=== PATIENT | female | born 1955 | race Caucasian/White ===

== ENCOUNTER → 2017-04-19 | Outpatient (CLI) | payer OTHER ==
[~2017-04-19] MED LIST: ALPR0.25 PO; ASPI81TA28 PO; B-COTAB53 PO; CALC600T9 PO; CLIN1GEL5 PO; EFF/375 PO; ESCI10TA17 PO; HYDR-5688 PO; HYDR25SU20 PR; MULT-405 PO; PANT40TA PO; RANITAB PO; VTMD400 PO; ZNTT/150 PO
== END | disposition home or self-care (01) ==
LOC: C.PATHSPEC 16:10
PROVIDERS: ATTEND Dermatology
DX: L72.0 Epidermal cyst (principal)

== ENCOUNTER → 2017-05-20 | Day surgery (SDC) | payer OTHER ==
[2017-05-13 12:13] LABS: BASO % 0.4 %; BASO ABS # 0.02 K/uL (0-0.2); COMPLETE YES; EOS % 1.9 %; HEMATOCRIT 45.4 % (37-47); IG% 0.2 %; LYMPH % 34.1 %; LYMPH ABS # 1.58 K/uL (1.2-3.4); MEAN CELL VOLUME 88.2 fL (80-100); MEAN CORPUSCULAR HEMOGLOBIN 28.5 pg (25-34); MEAN CORPUSCULAR HGB CONC 32.4 g/dl (32-36); MEAN PLATELET VOLUME 9.9 fL (7.4-10.4); MONO % 8.6 %; NEUT % 54.8 %; PLATELET COUNT 236 K/uL (130-400); RED BLOOD COUNT 5.15 M/uL (4.2-5.4); WHITE BLOOD COUNT 4.63 K/uL (4.8-10.8)
[2017-05-13 13:12] VITALS: Ht 162.6 cm; Wt 71.8 kg
[2017-05-13 13:57] LABS: BUN/CREATININE RATIO 17.9 (10-20); CALCIUM 9.1 mg/dl (8.5-10.1); CREATININE 0.88 mg/dl (0.60-1.20); POTASSIUM 4.3 mmol/L (3.5-5.1)
[~2017-05-20] VITALS: Ht 162.6 cm; Wt 71.8 kg
[~2017-05-20] MED LIST changes: +ATROPINE SULFATE 0.1 MG/ML 5ML SYR IV PRN; -B-COTAB53 PO; +BENZOIN SPRAY 118 ML BTL TOP ONE; +BUPIVACAINE 0.5 % 5 MG/1 ML MPF 30ML VIAL ONE; +BUPIVACAINE/EPINEPHRINE 0.25% 1:200,000 30 ML VIAL ONE; -CLIN1GEL5 PO; +CLINDAMYCIN PHOS 150 MG/ML 2 ML VIAL IV SCH; +DEXAMETHASONE SOD INJ 4 MG/ML VIAL IV PRN; +DEXAMETHASONE SOD INJ 4 MG/ML VIAL ONE; -ESCI10TA17 PO; +EpHEDrine SULFATE 50MG/5ML SYR ONE; +EpHEDrine SULFATE INJ 50 MG/ML AMP IV PRN; +FENTANYL CITRATE INJ 50 MCG/1 ML 2 ML VIAL IV PRN; +FENTANYL CITRATE INJ 50 MCG/1 ML 2 ML VIAL ONE; +HYDROCODONE/ACETAMOPHEN 5/325MG TAB PO PRN; +HYDROmorphone INJ 1 MG/ML SYR IV PRN; +KETOROLAC TROMETHAMINE 30 MG/ML VIAL IV. PRN; +LABETALOL HCL IV 5 MG/ML 20ML IV PRN; +LACTATED RINGER'S 1000ML 1,000 ML IV SCH; +LIDOCAINE HCL 2% 2 ML VIAL (20MG/ML) ONE; +METOCLOPRAMIDE HCL INJ 5 MG/ML 2 ML VIAL IV PRN; +MIDAZOLAM HCL 1 MG/ML 2ML VIAL ONE; -MULT-405 PO; +MoRPHine SULFATE 10 MG/ML CARP/VIAL IV PRN; +ONDANSETRON INJ 2 MG/ML 2 ML VIAL IV PRN; +ONDANSETRON INJ 2 MG/ML 2 ML VIAL ONE; +PHENYLEPHRINE 100MCG/ML 5ML SYR IV PRN; +PROMETHAZINE HCL INJ 6.25 MG in SODIUM CHLORIDE 0.9% 50ML 50 ML IV PRN; +PROPOFOL IV EMULSION 10 MG/ML 20 ML VIAL IV ONE; +SODIUM CHLORIDE 0.9% 1000ML 1,000 ML IV SCH; -ZNTT/150 PO
--- NOTE | 2017-05-20 10:25 | History & Physical Bridge - [place] ---
H&P Re-Evaluation Bridge Note: I have examined the patient, reviewed the History & Physical and in the interval since the performance of the History & Physical I have noted the following changes of clinical significance: No changes noted
--- NOTE | 2017-05-20 11:13 | [facility] Operative Report ---
Operative Report Operative Date May 20, 2017. Pre-Operative Diagnosis Prolapsed internal hemrrhoid Post-Operative Diagnosis Same as pre-op Procedure(s) Performed Excision Internal Hemrrhoid Surgeon Dr. Santana Machine Operations Supervisor Surgeon(s) Lara Matos PA-C Findings excoriated mucosa and very friable Specimens A. Hemorrhoid Anesthesia gen Complication(s) None Disposition Recovery Room / PACU I attest to the content of the Intraoperative Record and any orders documented therein. Any exceptions are noted below.
--- NOTE | 2017-05-20 11:18 | Discharge Instructions-SurgCtr ---
Discharge Instructions Date of Service May 20, 2017. Visit Reason for Visit: Prolapsed Internal Hemorrhoid Discharge Discharge Diagnosis / Problem: bleeding hemorrhoids Discharge Goals Goal(s): Decrease discomfort, Improve function, Improve disease control Activity Recommendations Activity Limitations: as noted below Lifting Limitations: no more than 10 pounds Exercise/Sports Limitations: until after follow-up appointment May Resume Sexual Activity: when tolerated Shower/Bathe: tomorrow (may soak in warm tub) Driving or Machine Use: resume 3 days after discharge SPECIAL CARE INSTRUCTIONS: * Cover incisions and change daily for comfort/drainage. will need a pad for drainage for 1-2 weeks * * Avoid constipation- may use Senokot S and Milk of magnesia twice daily as directed on the package * May use ibuprofen for pain as tolerated. * Expect some swelling and bruising. Call your doctor if: * Temperature above 101 degrees * Pain not relieved by pain medicine ordered * There is increased drainage or redness from any incision * You have any unanswered questions or concerns [phone]. FOLLOW UP VISIT: If not already scheduled, please call the office for a follow-up visit. for 1-2 weeks- check up OFFICE PHONE NUMBER: Dr. Santana Office Anesthesia . Post Anesthesia Instructions: If you have had General Anesthesia or IV Sedation: * Do not drive today. * Resume driving when surgeon permits. * Do not make important decisions or sign legal documents today. * Call surgeon for: 1. Temperature elevations greater than 101 degrees F. 2. Uncontrollable pain. 3. Excessive bleeding. 4. Persistent nausea and vomiting. 5. Medication intolerance (nausea, vomiting or rash). * For nausea and vomiting use only clear liquids such as: tea, soda, bouillon until nausea subsides, then gradually increase diet as tolerated. * If you have any concerns or questions, call your surgeon's office. If physician is unavailable and it is an emergency, call 911 or go to the nearest emergency room. . Diet Recommendations Home Diet: resume previous diet Procedures Procedures Performed: Excision Internal Hemrrhoid Pending Studies Studies pending at discharge: no Medical Emergencies . Who to Call and When: Medical Emergencies: If at any time you feel your situation is an emergency, please call 911 immediately. . Non-Emergent Contact Non-Emergency issues call your: Primary Care Provider, Surgeon . . "Provider Documentation" section prepared by Mika Santana. .
[2017-05-20 12:11] VITALS: TEMP 36.5
--- NOTE | 2017-05-20 12:32 | Anesthesia Progress Nt - [facility] ---
Anesthesia Post Op Note Date & Time May 20, 2017 at 12:32 Vital Signs Pain Intensity: 0 Vital Signs Past 12 Hours Date Time Temp Pulse Resp B/P (MAP) Pulse Ox O2 Delivery O2 Flow Rate FiO2 05/20/17 12:11 36.5 93 16 127/57 (80) 97 Room Air 05/20/17 12:04 83 16 05/20/17 12:04 84 16 94 05/20/17 12:03 144/80 05/20/17 12:02 36.7 85 16 144/80 98 Room Air 05/20/17 12:00 88 18 05/20/17 12:00 87 18 97 05/20/17 11:57 141/66 05/20/17 11:55 84 20 95 05/20/17 11:55 81 20 05/20/17 11:54 80 17 05/20/17 11:54 81 17 99 05/20/17 11:51 138/69 05/20/17 11:49 79 15 98 05/20/17 11:49 80 15 05/20/17 11:48 85 16 05/20/17 11:48 85 16 98 05/20/17 11:46 136/75 05/20/17 11:43 87 11 05/20/17 11:43 88 11 98 05/20/17 11:42 80 17 99 05/20/17 11:42 79 17 05/20/17 11:41 132/73 05/20/17 11:39 72 15 05/20/17 11:39 72 15 99 05/20/17 11:38 76 15 05/20/17 11:38 75 15 98 05/20/17 11:36 138/66 05/20/17 11:33 79 17 96 05/20/17 11:33 79 17 05/20/17 11:32 69 18 98 05/20/17 11:32 69 18 05/20/17 11:31 133/63 05/20/17 11:28 102/81 05/20/17 11:27 80 05/20/17 11:27 36.5 79 16 102/81 99 Mask 8 05/20/17 11:27 80 98 05/20/17 08:14 36.7 80 16 134/74 (94) 94 Room Air Notes Mental Status: alert / awake / arousable, participated in evaluation Pt Amnestic to Procedure: Yes Nausea / Vomiting: adequately controlled Pain: adequately controlled Airway Patency, RR, SpO2: stable & adequate BP & HR: stable & adequate Hydration State: stable & adequate Anesthetic Complications: no major complications apparent
[2017-05-20 12:37] VITALS: BP 128/73; PULSE 78; O2SAT 98
--- NOTE | 2017-05-20 13:03 | OPERATIVE REPORT ---
DATE OF OPERATION: 05/20/2017 NAME OF OPERATION: Excision of internal hemorrhoid. PREOPERATIVE DIAGNOSIS: Bleeding hemorrhoids. POSTOPERATIVE DIAGNOSIS: Same. STAFF SURGEON: Dr. Santana. RETAIL PRESENTATION SPECIALIST: Lara Matos PA-C FINDINGS: The patient had one large internal hemorrhoid with redundant external skin and also redundant mucosa with excoriation. ANESTHESIA: General. PROCEDURE: The patient was brought into the operating room and placed on the operating room table in the prone position after appropriate intubation. Her buttocks were taped apart. Her perianal area was prepped and draped in the usual fashion. On inspection, she had a very large area of redundant skin at the 5 o'clock position and internally had an area of redundant mucosa associated with a hemorrhoid which was very friable and excoriated; 2-0 chromic catgut suture was placed proximally in the mucosa. Then part of the skin and the hemorrhoidal tissue was excised using the LigaSure. It was then oversewn using 2-0 chromic catgut suture. After appropriate hemostasis, a dressing was applied and the patient was transferred to recovery room in stable condition. I attest to the content of the Intraoperative Record and any orders documented therein. Any exception s are noted below.
== END | disposition home or self-care (01) ==
LOC: X.SURG 07:40
PROVIDERS: ATTEND Surgery
DX: K64.8 Other hemorrhoids (principal); F41.9 Anxiety disorder, unspecified; M19.90 Unspecified osteoarthritis, unspecified site; Z85.828 Personal history of other malignant neoplasm of skin; Z90.89 Acquired absence of other organs; Z82.49 Family history of ischemic heart disease and other diseases of the circulatory system; K21.9 Gastro-esophageal reflux disease without esophagitis; E66.9 Obesity, unspecified; Z85.3 Personal history of malignant neoplasm of breast

== ENCOUNTER → 2017-05-31 | Outpatient (CLI) | payer OTHER ==
[~2017-05-31] MED LIST changes: -ATROPINE SULFATE 0.1 MG/ML 5ML SYR IV PRN; -BENZOIN SPRAY 118 ML BTL TOP ONE; -BUPIVACAINE 0.5 % 5 MG/1 ML MPF 30ML VIAL ONE; -BUPIVACAINE/EPINEPHRINE 0.25% 1:200,000 30 ML VIAL ONE; -CLINDAMYCIN PHOS 150 MG/ML 2 ML VIAL IV SCH; -DEXAMETHASONE SOD INJ 4 MG/ML VIAL IV PRN; -DEXAMETHASONE SOD INJ 4 MG/ML VIAL ONE; -EpHEDrine SULFATE 50MG/5ML SYR ONE; -EpHEDrine SULFATE INJ 50 MG/ML AMP IV PRN; -FENTANYL CITRATE INJ 50 MCG/1 ML 2 ML VIAL IV PRN; -FENTANYL CITRATE INJ 50 MCG/1 ML 2 ML VIAL ONE; -HYDROCODONE/ACETAMOPHEN 5/325MG TAB PO PRN; -HYDROmorphone INJ 1 MG/ML SYR IV PRN; -KETOROLAC TROMETHAMINE 30 MG/ML VIAL IV. PRN; -LABETALOL HCL IV 5 MG/ML 20ML IV PRN; -LACTATED RINGER'S 1000ML 1,000 ML IV SCH; -LIDOCAINE HCL 2% 2 ML VIAL (20MG/ML) ONE; -METOCLOPRAMIDE HCL INJ 5 MG/ML 2 ML VIAL IV PRN; -MIDAZOLAM HCL 1 MG/ML 2ML VIAL ONE; -MoRPHine SULFATE 10 MG/ML CARP/VIAL IV PRN; -ONDANSETRON INJ 2 MG/ML 2 ML VIAL IV PRN; -ONDANSETRON INJ 2 MG/ML 2 ML VIAL ONE; -PHENYLEPHRINE 100MCG/ML 5ML SYR IV PRN; -PROMETHAZINE HCL INJ 6.25 MG in SODIUM CHLORIDE 0.9% 50ML 50 ML IV PRN; -PROPOFOL IV EMULSION 10 MG/ML 20 ML VIAL IV ONE; -SODIUM CHLORIDE 0.9% 1000ML 1,000 ML IV SCH
--- NOTE | 2017-05-31 15:30 | MAMMOGRAPHY REPORT ---
BILATERAL DIGITAL DIAGNOSTIC MAMMOGRAM TOMOSYNTHESIS WITH CAD AND TARGETED BILATERAL ULTRASOUND: 05/31 CLINICAL HISTORY: 62-year-old woman with a personal history of right breast cancer status post lumpec delnaey and radiation therapy, diagnosed in 2003. She felt a pea-sized lump in the superior right breas t near the scar, but is unable to pinpoint that lump today. No skin erythema or nipple discharge. TECHNIQUE: Bilateral CC and MLO 2-D and tomosynthesis images were obtained. Current study was also evaluated with a Computer Aided Detection (CAD) system. COMPARISON: Comparison is made to exams dated: 12/25/2008, 07/05/2008, 05/31/2016 mammogram, 06/11/2015 mammogram, 06/10/2014 mammogram, and 05/25/2013 mammogram. BREAST COMPOSITION: There are scattered areas of fibroglandular density in both breasts. FINDINGS: A linear scar marker overlies the superior periareolar right breast. A triangular skin pa lpable marker overlies the 11:00 anterior right breast, denoting the previous location of the lump fe lt by the patient, which she is unable to pinpoint today. There is expected architectural distortion in the 12:00 anterior right breast, from prior lumpectomy. No new suspicious mass, unexpected architectural distortion, asymmetry or suspicious calcifications are seen in the right breast, with particular attention to the area of previously palpable lump. Th ere are a few stable punctate microcalcifications in the superior anterior right breast on the MLO vi ew, that are likely dermal in origin and may be related to prior surgical excision. These are unchan ged dating back to at least 2007. There is a circumscribed oval 8.8 x 6.3 x 5.6 mg either mass in the 6:00 anterior subareolar left bo ast. No other suspicious masses, calcifications or asymmetry are identified in the left breast. Targeted ultrasound was performed in the 6:00 anterior and retroareolar left breast, and also in the area of prior palpable lump in the right breast. In the 5:00 retroareolar left breast, there is an o galina circumscribed parallel hypoechoic solid-appearing mass measuring 7.0 x 4.1 x 6.9 mm. This correl ates well with the mammographic finding and is indeterminate. Definitive characterization with tissu e sampling is recommended. This was not definitely seen on prior mammograms. Targeted ultrasound performed in the area of palpable lump which the patient is unable to feel today, in the 11:00 right breast, 2 cm from the nipple, there is sonographically normal tissue. No suspici ous solid or cystic mass. Expected architectural distortion compatible with scar tissue is seen in t he 12:00 right breast, 1 cm from the nipple. IMPRESSION: ACR BI-RADS CATEGORY 4: SUSPICIOUS, TARGETED ULTRASOUND ACR BI-RADS CATEGORY 4: SUSPICIO US 1. There is no new suspicious mammographic or targeted sonographic abnormality in the area of palpab le lump in the 11:00 anterior right breast, which the patient was unable to feel today. Continued cl inical monitoring is recommended, and if it becomes evident again, could consider repeat targeted ult rasound. 2. Overall, stable mammographic appearance of the right breast, without mammographic evidence of mal ignancy. 3. There is an oval 8 mm circumscribed mass in the 6:00 anterior/subareolar left breast mammographic ally, correlating with an indeterminate solid circumscribed mass in the 5:00 retroareolar left breast on ultrasound. Ultrasound-guided core needle biopsy is recommended for definitive characterization. These results and recommendations were discussed with the patient at the time of the exam. She tenta tively scheduled the biopsy prior to leaving our department. Approximately 10% of breast cancers are not detected with mammography. A negative mammographic report should not delay biopsy if a clinically suggestive mass is present. Mary Link M.D. ay/:05/31/2017 13:28:16 Metal Punch Press Operator: Ailyn HURST)(Quinn), [facility] letter sent: Abnormal 4/5 BI-RADS Code: ACR BI-RADS Category 4: Suspicious Ultrasound BI-RADS: ACR BI-RADS Category 4: Suspici ous
== END | disposition home or self-care (01) ==
LOC: C.MAMM 10:08
PROVIDERS: ATTEND Family Medicine
DX: N63.10 Unspecified lump in the right breast, unspecified quadrant (principal); N63.20 Unspecified lump in the left breast, unspecified quadrant; Z85.3 Personal history of malignant neoplasm of breast

== ENCOUNTER → 2017-06-03 | Outpatient (CLI) | payer OTHER ==
--- NOTE | 2017-06-03 13:32 | Discharge Instructions ---
Discharge Instructions Procedure Procedure Date: Jun 03, 2017. Reason for visit: Left Mass. Discharge Discharge Date: Jun 03, 2017. Discharge Diagnosis: status post breast biopsy Instructions Activity Recommendations: Additional Limitations (see below) Return to School/Work: no limitations Recommended Home Diet: No Limitations Provider Instructions: ACTIVITY RECOMMENDATIONS: * No lifting, pushing, pulling or exercising the affected side for three days. RETURN TO SCHOOL/WORK: * You may return to work/school after the procedure, but do not perform any strenuous activities for 24 to 48 hours. MEDICATIONS: * Tylenol (two 325 mg) every four to six hours if needed for mild pain (if not allergic to Tylenol). DIET: * Resume previous diet. SPECIAL CARE INSTRUCTIONS: * Keep biopsy site dry for 24 hours. May shower after 24 hours, but do not soak (bathe) incision. * May remove Tegaderm (plastic patch) tomorrow AFTER showering. * Leave the steri-strips on for one week. Allow the steri-strips to fall off by themselves. If not off after one week, you may remove them. You may place a Bandaid crosswise over the strips, if desired. * Apply ice 10 minutes on and 10 minutes off as needed. * Wear a bra at bedtime to sleep more comfortably for 2-3 days. * Your referring physician should have the results after approximately 5 to 7 business days. * Call for unusual bleeding, fever, drainage, etc or if you have any questions call during normal business hours or after hours call Dr Underwood, [phone]. FOLLOW UP VISIT: Follow-up with Referring Physician as scheduled. Allergies Coded Allergies: Cephalexin (Verified Allergy, Intermediate, HIVES, 05/20/17) Sulfa Antibiotics (Verified Allergy, Intermediate, HIVES, 05/20/17) [place] Recommendations: Call your doctor if: * Temperature above 101 degrees * Pain not relieved by pain medicine ordered * There is increased drainage or redness from any incision * You have any unanswered questions or concerns. Your Doctors Instructions noted above were prepared by provider Anette Underwood. Patient Signature Section: Patient Instructions Signature Page Joanne Yung Patient (or Guardian) Signature/Date: I have read and understand the instructions given to me by my caregivers. Caregiver/RN/Doctor Signature/Date: The above-named patient and/or guardian has received patient instructions on this date. + Original Patient Signature Page (only) stays with chart. Please make copy for patient.
--- NOTE | 2017-06-03 15:47 | MAMMOGRAPHY REPORT ---
UNILATERAL LEFT DIGITAL DIAGNOSTIC MAMMOGRAM TOMOSYNTHESIS: 06/03/2017 CLINICAL HISTORY: Left 5:00 subareolar breast mass. TECHNIQUE: Breast tomosynthesis in addition to standard 2D mammography was performed. Postprocedura l left CC and ML tomosynthesis images including C views were obtained. COMPARISON: Comparison is made to exams dated: 05/31/2017 ultrasound, 05/31/2017 mammogram - [facility], 05/31/2016 mammogram, 06/11/2015 mammogram, 06/10/2014 mammogram, and 05/25/2013 m ammogram. BREAST COMPOSITION: There are scattered areas of fibroglandular density in the left breast. FINDINGS: A new biopsy marker clip is seen at the site of the biopsied left 5:00 subareolar breast m ass. No significant postbiopsy hematoma is seen. IMPRESSION: POST PROCEDURE IMAGING FOR MARKER PLACEMENT New biopsy marker clip status post ultrasound guided biopsy of a left 5:00 breast mass. Pathology re sults are pending. Approximately 10% of breast cancers are not detected with mammography. A negative mammographic report should not delay biopsy if a clinically suggestive mass is present. Anette Underwood M.D. ah/:06/03/2017 14:09:19 Marketing Operations Consultant: Gabriella MINAYA(R)(M), [facility] BI-RADS Code: Post Procedure Imaging For Marker Placement
--- NOTE | 2017-06-03 15:47 | MAMMOGRAPHY REPORT ---
ULTRASOUND GUIDED BIOPSY LEFT BREAST: 06/03/2017 CLINICAL HISTORY: Left 5:00 subareolar breast mass. PATIENT CONSENT: The procedure, risks and benefits were discussed with the patient and informed writt en consent was obtained. A timeout was performed immediately prior to the procedure. PROCEDURE DESCRIPTION: With ultrasound guidance, aseptic technique, and lidocaine as the local anesth etic (1% lidocaine to anesthetize the skin and 1% lidocaine with epinephrine to anesthetize the deepe r tissues), the mass of concern in the left 5:00 subareolar breast was sampled 4 times with a 14-gaug e Achieve biopsy needle. Immediately thereafter, with ultrasound guidance, aseptic technique, and li docaine as the local anesthetic, a metallic localizer clip was placed at the biopsy site. Direct pre ssure was applied to the site immediately post procedure and hemostasis was achieved. Postprocedure unilateral mammograms were performed to confirm placement of the clip in the expected location of the breast mass. The patient tolerated the procedure without complication. She was given wound care in structions. The specimens were sent to pathology for analysis. COMPARISON: Comparison is made to exams dated: 05/31/2017 ultrasound, 05/31/2017 mammogram - [facility], 05/31/2016 mammogram, 06/11/2015 mammogram, 06/10/2014 mammogram, and 05/22/2012 m ammogram. IMPRESSION: ULTRASOUND GUIDED BIOPSY Ultrasound guided core needle biopsy of the left 5:00 subareolar breast mass, with clip placement. T he patient will receive pathology results from her referring provider. Anette Underwood M.D. ah/:06/03/2017 13:34:24 Diamond Saw Operator: Gabriella MINAYA(R)(M), [facility]
== END | disposition home or self-care (01) ==
LOC: C.MAMM 12:46
PROVIDERS: ATTEND Family Medicine
DX: N63.0 Unspecified lump in unspecified breast (principal); N60.82 Other benign mammary dysplasias of left breast

== ENCOUNTER → 2017-06-24 | Day surgery (SDC) | payer OTHER ==
[2017-06-21 09:50] VITALS: Ht 162.6 cm; Wt 71.4 kg
[~2017-06-24] VITALS: Ht 162.6 cm; Wt 71.4 kg
[~2017-06-24] MED LIST changes: -ASPI81TA28 PO; +ATROPINE SULFATE 0.1 MG/ML 5ML SYR IV PRN; +CEFAZOLIN 2000MG IV PUSH 10 ML IV SCH; +CLINDAMYCIN IV 900 MG in DEXTROSE 5% ADD-VANTAGE 100ML 100 ML IV SCH; +CLINDAMYCIN PHOS 150 MG/ML 2 ML VIAL IV SCH; +DEXAMETHASONE SOD INJ 4 MG/ML VIAL ONE; +EpHEDrine SULFATE INJ 50 MG/ML AMP IV PRN; +FENTANYL CITRATE INJ 50 MCG/1 ML 2 ML VIAL IV PRN; +FENTANYL CITRATE INJ 50 MCG/1 ML 2 ML VIAL ONE; -HYDR25SU20 PR; +HYDROCODONE/ACETAMOPHEN 5/325MG TAB PO PRN; +HYDROmorphone INJ 1 MG/ML SYR IV PRN; +LACTATED RINGER'S 1000ML 1,000 ML IV SCH; +LIDOCAINE HCL 1% 20 ML VIAL ONE; +LIDOCAINE HCL 2% 2 ML VIAL (20MG/ML) ONE; +METHYLENE BLUE 0.5% 10 ML VIAL ONE; +MIDAZOLAM HCL 1 MG/ML 2ML VIAL ONE; +ONDANSETRON INJ 2 MG/ML 2 ML VIAL IV PRN; +ONDANSETRON INJ 2 MG/ML 2 ML VIAL ONE; +PROMETHAZINE HCL INJ 12.5 MG in SODIUM CHLORIDE 0.9% 50ML 50 ML IV PRN; +PROPOFOL IV EMULSION 10 MG/ML 20 ML VIAL IV ONE; +PRT/20 PO; -RANITAB PO; +SODIUM CHLORIDE 0.9% 1000ML 1,000 ML IV SCH; +[UNRECOGNIZED DRUG - REMARK] OPR
[2017-06-24] MEDS: BUPIVACAINE 0.5 % 5 MG/1 ML MPF 30ML VIAL ONE ×2 (10:15→10:34)
--- NOTE | 2017-06-24 10:44 | [facility] Operative Report ---
Operative Report Operative Date Jun 24, 2017. Pre-Operative Diagnosis Left breast atypical ductal herplasia Post-Operative Diagnosis Same as pre-op Procedure(s) Performed Left Breast Biopsy With Needle Localization Surgeon Dr. Santana Family Service Worker Surgeon(s) Grant Wallace PA-C Estimated Blood Loss 5ML Findings Lt breast tissue and addnl lateral and medial tissue Specimens A. Left breast biopsy Out at 1017 (sent fresh to [facility]) Needle =inferior, long suture=lateral, short suture=medial B.Left breast additional tissue, lateral. Sebastian=margin C.Left breast additional tissue, medial. Sebastian=margin Anesthesia gen/ LMA Complication(s) None Disposition Recovery Room / PACU I attest to the content of the Intraoperative Record and any orders documented therein. Any exceptions are noted below.
--- NOTE | 2017-06-24 10:49 | Discharge Instructions-SurgCtr ---
Discharge Instructions Date of Service Jun 24, 2017. Visit Reason for Visit: Left Breast Aytpical Ductal Hyperplasia Discharge Discharge Diagnosis / Problem: atypia Lt breast Discharge Goals Goal(s): Decrease discomfort, Improve function, Improve disease control Activity Recommendations Activity Limitations: as noted below Lifting Limitations: no more than 25 pounds Exercise/Sports Limitations: until after follow-up appointment May Resume Sexual Activity: when tolerated Shower/Bathe: keep incision dry (keep incision dry fro 2 days- may shower over incision on Sun 06/26) Driving or Machine Use: resume 1 day after discharge SPECIAL CARE INSTRUCTIONS: * Cover incisions and change daily for comfort/drainage. * Leave steri strips in place for 2 days * May use ibuprofen for pain as tolerated. * Expect some swelling and bruising. Call your doctor if: * Temperature above 101 degrees * Pain not relieved by pain medicine ordered * There is increased drainage or redness from any incision * You have any unanswered questions or concerns [phone]. FOLLOW UP VISIT: If not already scheduled, please call the office for a follow-up visit. for next week- to remove suture knots at end of incision OFFICE PHONE NUMBER: Dr. Santana Office Anesthesia . Post Anesthesia Instructions: If you have had General Anesthesia or IV Sedation: * Do not drive today. * Resume driving when surgeon permits. * Do not make important decisions or sign legal documents today. * Call surgeon for: 1. Temperature elevations greater than 101 degrees F. 2. Uncontrollable pain. 3. Excessive bleeding. 4. Persistent nausea and vomiting. 5. Medication intolerance (nausea, vomiting or rash). * For nausea and vomiting use only clear liquids such as: tea, soda, bouillon until nausea subsides, then gradually increase diet as tolerated. * If you have any concerns or questions, call your surgeon's office. If physician is unavailable and it is an emergency, call 911 or go to the nearest emergency room. . Diet Recommendations Home Diet: resume previous diet Procedures Procedures Performed: Left Breast Biopsy With Needle Localization Pending Studies Studies pending at discharge: no Medical Emergencies . Who to Call and When: Medical Emergencies: If at any time you feel your situation is an emergency, please call 911 immediately. . Non-Emergent Contact Non-Emergency issues call your: Primary Care Provider, Surgeon . . "Provider Documentation" section prepared by Mika Santana. .
--- NOTE | 2017-06-24 11:04 | OPERATIVE REPORT ---
DATE OF OPERATION: 06/24/2017 NAME OF OPERATION: Needle localization, left breast lumpectomy. PREOPERATIVE DIAGNOSIS: Atypia, left breast. POSTOPERATIVE DIAGNOSIS: Same. STAFF SURGEON: Mika Santana MD SMUDGER: Grant Shankar PA-C ANESTHESIA: General LMA. PROCEDURE: The patient was brought in the operating room and placed on the operating table in supine position. Her left chest and breasts were prepped and draped in usual fashion. She had a needle placed in the left breast at approximately 5 o'clock inferiorly traversing toward the 3 o'clock area. Skin and subcutaneous tissue were anesthetized using 0.5% plain Marcaine. An incision made over the needle carrying dissection down around the tip of the needle excising the tissue. The needle was inferior, long silk suture lateral, short silk suture medial. It appeared that the area of prior biopsy was at the lateral site. Additional tissue was taken, lateral and medial with the new margin being marked with methylene blue. Essentially this was tissue around the entire tip area of the needle. The tissue that was sent to mammography did show the clip within the tissue. It was difficult to see the mass. Deep tissue was then reapproximated using 2-0 plain catgut suture and then the subcutaneous tissue was reapproximated using 4-0 chromic suture and then the skin reapproximated using subcuticular 5-0 Monocryl with the knots left outside the skin at the end of the incision and Steri-Strips applied. Dressing applied and patient transferred to recovery room in stable condition. I attest to the content of the Intraoperative Record and any orders documented therein. Any exception s are noted below.
[2017-06-24 11:16] VITALS: TEMP 36.6
[2017-06-24 11:45] VITALS: BP 127/78; PULSE 62; O2SAT 98
--- NOTE | 2017-06-24 11:52 | Anesthesia Progress Nt - [facility] ---
Anesthesia Post Op Note Date & Time Jun 24, 2017 at 11:52 Vital Signs Pain Intensity: 0 Vital Signs Past 12 Hours Date Time Temp Pulse Resp B/P (MAP) Pulse Ox O2 Delivery O2 Flow Rate FiO2 06/24/17 11:45 62 16 127/78 (94) 98 Room Air 06/24/17 11:16 36.6 64 16 105/63 (77) 98 Room Air 06/24/17 11:11 36.6 06/24/17 11:09 65 12 96 06/24/17 11:09 64 12 06/24/17 11:06 126/63 (76) 06/24/17 11:04 71 16 97 06/24/17 11:04 71 16 06/24/17 11:01 130/62 (73) 06/24/17 10:59 64 18 06/24/17 10:59 63 18 99 06/24/17 10:56 129/62 (79) 06/24/17 10:54 69 19 06/24/17 10:54 75 19 99 06/24/17 10:51 119/63 (71) 06/24/17 10:49 77 13 06/24/17 10:49 79 13 99 06/24/17 10:46 122/63 (84) 06/24/17 10:43 36.4 87 16 122/63 96 Diffusion Mask 5 06/24/17 07:48 36.5 77 16 115/62 (79) 95 Room Air Notes Mental Status: alert / awake / arousable, participated in evaluation Pt Amnestic to Procedure: Yes Nausea / Vomiting: adequately controlled Pain: adequately controlled Airway Patency, RR, SpO2: stable & adequate BP & HR: stable & adequate Hydration State: stable & adequate Anesthetic Complications: no major complications apparent
--- NOTE | 2017-06-24 15:20 | MAMMOGRAPHY REPORT ---
NEEDLE LOCALIZATION LEFT BREAST: 06/24/2017 CLINICAL HISTORY: Recent ultrasound-guided biopsy of a left 5:00 subareolar breast mass, with atypia seen on pathology. PROCEDURE DESCRIPTION: With ultrasound guidance, aseptic technique, and 1% lidocaine as the local ane sthetic, the mass and associated biopsy marker clip in the left 5:00 subareolar breast was localized with a 3 cm Joseph II needle. The path of approach was caudocranial. The needle was left in place . Postprocedural CC and ML views were obtained to document wire placement. The mass and associated biopsy marker clip are located along the distal portion of the wire. The patient tolerated the proce dure without complication. COMPARISON: Comparison is made to exams dated: 06/03/2017 mammogram, 06/03/2017 ultrasound biopsy, 05/31/2017 ultrasound, 05/31/2017 mammogram - [facility], and 05/31/2016 mammogram. IMPRESSION: NEEDLE LOCALIZATION Ultrasound-guided needle localization of the mass and associated biopsy marker clip in the left 5:00 subareolar breast. Anette Underwood M.D. ah/:06/24/2017 08:17:21 [employer] Roofer: Ailyn MINAYA(Ninfa)(M), [facility]
--- NOTE | 2017-06-24 15:20 | MAMMOGRAPHY REPORT ---
SPECIMEN LEFT BREAST: 06/24/2017 CLINICAL HISTORY: Status post left breast surgical excision. COMPARISON: Comparison is made to exams dated: 06/24/2017 localization, 06/03/2017 mammogram, 06/03/20 17 ultrasound biopsy, 05/31/2017 ultrasound, 05/31/2017 mammogram - [facility], and 1 mammogram. Findings: A radiograph was performed of the left breast surgical specimen. The localized biopsy nubia er clip and intact needle localization wire and needle are present within the specimen. The results were discussed with Dr. Santana over the telephone. IMPRESSION: SPECIMEN The imaged specimen contains the preoperatively-localized biopsy marker clip. Anette Underwood M.D. ah/:06/24/2017 10:50:51 Brands Editor: Ailyn HURST)(Quinn), [facility]
--- NOTE | 2017-06-24 15:24 | MAMMOGRAPHY REPORT ---
UNILATERAL LEFT DIGITAL DIAGNOSTIC MAMMOGRAM: 06/24/2017 CLINICAL HISTORY: Status post ultrasound guided needle localization of the left breast mass. Please see separate report from ultrasound-guided needle localization performed on the same day for d etails of this exam. IMPRESSION: Please see separate report from ultrasound-guided needle localization performed on the same day for d etails of this exam. Approximately 10% of breast cancers are not detected with mammography. A negative mammographic report should not delay biopsy if a clinically suggestive mass is present. Anette Underwood M.D. ah/:06/24/2017 08:18:43 Screener Operator: Ailyn HURST)(M), [facility] BI-RADS Code: n/a
== END | disposition home or self-care (01) ==
LOC: X.SURG 07:27
PROVIDERS: ATTEND Surgery
DX: N60.82 Other benign mammary dysplasias of left breast (principal); Z79.82 Long term (current) use of aspirin; Z90.89 Acquired absence of other organs; Z98.890 Other specified postprocedural states; Z88.2 Allergy status to sulfonamides; Z85.3 Personal history of malignant neoplasm of breast; Z83.3 Family history of diabetes mellitus; Z82.49 Family history of ischemic heart disease and other diseases of the circulatory system; Z80.9 Family history of malignant neoplasm, unspecified

== ENCOUNTER → 2017-12-12 | Outpatient (CLI) | payer OTHER ==
[~2017-12-12] MED LIST changes: -ATROPINE SULFATE 0.1 MG/ML 5ML SYR IV PRN; -CEFAZOLIN 2000MG IV PUSH 10 ML IV SCH; -CLINDAMYCIN IV 900 MG in DEXTROSE 5% ADD-VANTAGE 100ML 100 ML IV SCH; -CLINDAMYCIN PHOS 150 MG/ML 2 ML VIAL IV SCH; -DEXAMETHASONE SOD INJ 4 MG/ML VIAL ONE; -EpHEDrine SULFATE INJ 50 MG/ML AMP IV PRN; -FENTANYL CITRATE INJ 50 MCG/1 ML 2 ML VIAL IV PRN; -FENTANYL CITRATE INJ 50 MCG/1 ML 2 ML VIAL ONE; -HYDROCODONE/ACETAMOPHEN 5/325MG TAB PO PRN; -HYDROmorphone INJ 1 MG/ML SYR IV PRN; -LACTATED RINGER'S 1000ML 1,000 ML IV SCH; -LIDOCAINE HCL 1% 20 ML VIAL ONE; -LIDOCAINE HCL 2% 2 ML VIAL (20MG/ML) ONE; -METHYLENE BLUE 0.5% 10 ML VIAL ONE; -MIDAZOLAM HCL 1 MG/ML 2ML VIAL ONE; -ONDANSETRON INJ 2 MG/ML 2 ML VIAL IV PRN; -ONDANSETRON INJ 2 MG/ML 2 ML VIAL ONE; -PANT40TA PO; -PROMETHAZINE HCL INJ 12.5 MG in SODIUM CHLORIDE 0.9% 50ML 50 ML IV PRN; -PROPOFOL IV EMULSION 10 MG/ML 20 ML VIAL IV ONE; -SODIUM CHLORIDE 0.9% 1000ML 1,000 ML IV SCH
--- NOTE | 2017-12-13 07:47 | MAMMOGRAPHY REPORT ---
UNILATERAL LEFT DIGITAL DIAGNOSTIC MAMMOGRAM TOMOSYNTHESIS WITH CAD AND TARGETED LEFT ULTRASOUND: 11/27 CLINICAL HISTORY: 62-year-old woman with a personal history of right breast cancer status post breast conservation treatment and recently diagnosed left breast atypical ductal hyperplasia, status post s urgical excisional biopsy. She presents for first follow-up in the left breast after surgery. TECHNIQUE: Left breast tomosynthesis in addition to standard 2D mammography was performed. Spot magn ification left CC and ML views were also performed over the surgical site. Current study was also ev aluated with a Computer Aided Detection (CAD) system. COMPARISON: Comparison is made to exams dated: 06/03/2017 mammogram, 05/31/2017 mammogram - [facility], 05/31/2016 mammogram, 06/11/2015 mammogram, 06/10/2014 mammogram, and 05/25/2013 ma mmogram. BREAST COMPOSITION: There are scattered areas of fibroglandular density in the left breast. FINDINGS: A linear scar marker overlies the upper outer anterior/periareolar left breast denoting the skin surgical scar from recent excisional biopsy. No suspicious mass, architectural distortion or c luster of microcalcifications is seen. There is stable asymmetry in the left upper outer quadrant. Targeted ultrasound was performed in the lateral left breast over the surgical scar from the 3:00 to 5:00 periareolar region. There is a linear hypoechoic scar tissue deep to the skin surgical scar. N o evidence of a suspicious solid or cystic mass. No suspicious abnormality is seen in the left upper outer quadrant in an area of stable focal asymmetry. IMPRESSION: ACR BI-RADS CATEGORY 2: BENIGN, TARGETED ULTRASOUND ACR BI-RADS CATEGORY 2: BENIGN There is no mammographic or targeted sonographic evidence of malignancy in the left breast. Return to annual mammogram screening schedule is recommended. The patient has been verbally notified of the r esults. Approximately 10% of breast cancers are not detected with mammography. A negative mammographic report should not delay biopsy if a clinically suggestive mass is present. Mary Link M.D. ay/:12/12/2017 10:12:15 Spiritual Advisor: Douglas MINAYA(Ninfa)(Quinn), [facility] letter sent: Normal 1/2 BI-RADS Code: ACR BI-RADS Category 2: Benign Ultrasound BI-RADS: ACR BI-RADS Category 2: Benign
== END | disposition home or self-care (01) ==
LOC: C.MAMM 09:20
PROVIDERS: ATTEND Surgery
DX: Z85.3 Personal history of malignant neoplasm of breast (principal); Z08 Encounter for follow-up examination after completed treatment for malignant neoplasm; Z98.890 Other specified postprocedural states

== ENCOUNTER 2019-07-16 16:45 | Inpatient (IN) ==
[2019-07-16] MEDS ORDERED: SODIUM CHLORIDE 0.9% 1000ML 1,000 ML IV ONE (17:02)
[2019-07-16 17:23] LABS: Basophils # (auto) 0.02 K/uL (0-0.2); Basophils % (auto) 0.3 %; Eosinophils # (auto) 0.15 K/uL (0-0.5); Eosinophils % (auto) 2.1 %; Hematocrit (blood only) 37.8 % (37-47); Hemoglobin 12.8 g/dL (12.0-16.0); Immature Granulocytes # (auto) 0.01 K/uL (0.00-0.02); Immature Granulocytes % (auto) 0.1 %; Lymphocytes # (auto) 2.17 K/uL (1.2-3.4); Lymphocytes % (auto) 29.8 %; Mean Corpuscular Hemoglobin 29.8 pg (25-34); Mean Corpuscular Hgb Conc 33.9 g/dL (32-36); Mean Corpuscular Volume 88.1 fL (80-100); Mean Platelet Volume 9.8 fL (7.4-10.4); Monocytes # (auto) 0.61 K/uL (0.11-0.59); Monocytes % (auto) 8.4 %; Neutrophils # (auto) 4.31 K/uL (1.4-6.5); Neutrophils % (auto) 59.3 %; Platelet Count 256 K/uL (130-400); RDW Coefficient of Variation 14.6 % (11.5-14.5); RDW Standard Deviation 47.4 fL (36.4-46.3); Red Blood Count 4.29 M/uL (4.2-5.4); White Blood Count 7.27 K/uL (4.8-10.8)
[2019-07-16] MEDS: ASPIRIN CHEW 324 MG PO STA ×2 (17:32→18:51)
[2019-07-16 17:41] LABS: Alanine Aminotransferase 25 U/L (12-78); Albumin Level 3.6 gm/dl (3.4-5.0); Aspartate Aminotransferase 23 U/L (15-37); BUN Creatinine Ratio 8.8 (10-20); Blood Urea Nitrogen 9 mg/dl (7-18); Calcium 9.4 mg/dl (8.5-10.1); Carbon Dioxide 28 mmol/L (21-32); Chloride 102 mmol/L (98-107); Creatinine Clr Calc Pharmacy 51.6 ml/min; Est GFR (African American) 64.1; Est GFR (Non-African American) 55.3; Glucose 116 mg/dl (70-99); Potassium 3.4 mmol/L (3.5-5.1); Sodium 138 mmol/L (136-145)
[2019-07-16 17:44] LABS: Alkaline Phosphatase 65 U/L (45-117); Bilirubin,Total 0.5 mg/dl (0.2-1); Globulin 3.8 gm/dl (2.5-4.0); Partial Thromboplastin Ratio 0.9; Partial Thromboplastin Time 24.7 Seconds (21.0-31.0); Prothrombin Time 10.6 Seconds (9.0-12.0); Total Protein 7.4 gm/dl (6.4-8.2); Troponin I < 0.015 ng/ml (0-0.045)
[2019-07-16 17:51] LABS: Appearance Urine Slightly Cloudy (Clear); Bilirubin Urine Negative (Negative); Blood Urine 1+ (Negative); Color Urine Yellow; Glucose Urine UA Negative (Negative); Ketones Urine Negative (Negative); Leukocyte Esterase Urine Trace (Negative); Nitrite Urine Negative (Negative); Protein Urine Negative (Negative); Specific Gravity Urine <= 1.005 (1.000-1.030); Urobilinogen Urine Negative (Negative)
[2019-07-16 18:08] LABS: Bacteria Urine 1+ (Negative); RBC Urine 0-4 /hpf (0-4)
[2019-07-16] MEDS ORDERED: OPTIRAY 320 125ml IV PRN (19:18)
--- NOTE | 2019-07-16 19:31 | Emergency Department Note ---
Entered by Karlie Diaz acting as a scribe for William Cabrales DO History of Present Illness General Chief complaint: Shortness of Breath/Dyspnea Stated complaint: SOB Source: patient History of Present Illness Onset (ago): hour(s) (today ) Location: chest Pain Consistency: + constant Maximum Pain Intensity: 3 Associated symptoms: + denies other symptoms (trouble swallowing, diarrhea, dysuria, hematuria) and + shortness of breath; no nausea/vomiting The patient is a 64 year old female with PMHx pertinent for breast cancer who presents to the Emergency Room with complaints of shortness of breath. She states that she had a recent bilateral mastectomy 4 days ago. Today she was sitting down when she began to experience chest and throat tightness associated with a "near-syncope" feeling. She explains that she has a history of anxiety but was not anxious about anything today. Her tightness has not resolved since onset prompting her ED visit today. The patient states that she is concerned for a post-op PE. She also states she is currently taking Benadryl for contact dermitis from surgical tape. Of note, the patient was seen in the ED 3 days ago for the same. She denies trouble swallowing, nausea, vomiting, diarrhea, dysuria, and hematuria. The patient offers no additional complaints at this time. Patient denies diabetes, hypertension, hyperlipidemia, CAD, history of sudden at a young age, and smoking. Home Medications Home Medications Medication Instructions Recorded Confirmed Type albuterol sulfate 2 puff INHALATION Q6H PRN 12/05/18 07/16/19 History ranitidine HCl [Zantac] 150 mg PO DAILY PRN 12/05/18 07/16/19 History pantoprazole 40 mg tablet,delayed 40 mg PO QAM #90 tab 03/23/19 07/16/19 Rx release citalopram 20 mg tablet 20 mg PO DAILY #90 tab 05/30/19 07/16/19 Rx clindamycin phosphate 1 % topical 1 appln TOPICAL DAILY #1 ml 06/15/19 07/16/19 History solution acetaminophen [Tylenol Extra 500 mg PO Q6H PRN 07/16/19 07/16/19 History Strength] alprazolam 0.25 mg PO BID PRN 07/16/19 07/16/19 History clindamycin HCl 150 mg PO TID 07/16/19 07/16/19 History diphenhydramine HCl 50 mg PO Q8H PRN 07/16/19 07/16/19 History hydrocodone-acetaminophen 1 tab PO Q6H PRN 07/16/19 07/16/19 History Allergies Allergy/AdvReac Type Severity Reaction Status Date / Time cephalexin Allergy Intermediate HIVES Verified 07/16/19 18:57 Sulfa (Sulfonamide Allergy Intermediate HIVES Verified 07/16/19 18:58 Antibiotics) adhesive tape Allergy REDNESS OF Unverified 07/16/19 18:57 SKIN,RASH Past Med/Surg History Medical History Anxiety SITUATIONAL GERD (gastroesophageal reflux disease) Hiatal hernia MVP (mitral valve prolapse) HX-NO PREMED WITH DENTAL Pneumonia 05/2018 PVC (premature ventricular contraction) ON OCC Surgical History History of colonoscopy History of dilation and curettage History of esophagogastroduodenoscopy (EGD) History of hemorrhoidectomy History of tonsillectomy Hx of lumpectomy RIGHT PLUS RADIATION-12 YRS AGO Hx of lumpectomy LEFT NO RADIATION 2016 Family History Sister Family history of diabetes mellitus Mother Family history of diabetes mellitus Hypertension Aunt Family history of diabetes mellitus Myocardial infarction acute Father Myocardial infarction acute Grandfather Cancer Brother Clotting disorder Social History Preferred Language: Gambian Communication Ability: Effective Contour Sander Required: No Beliefs That Will Affect Care: None marital status: Current Living Situation: Spouse current occupational status: retired 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 and A total of 10 systems reviewed and were otherwise negative Physical Exam Vital Signs Vital Signs - 24 hr 07/16/19 16:49 07/16/19 17:03 07/16/19 20:45 Temperature 36.9 C Temperature Source Oral Pulse Rate 107 H Pulse Rate [Left Radial] 87 Pulse Rhythm Regular Pulse Rhythm [Left Radial] Regular Pulse Strength [Left Radial] Normal Respiratory Rate 22 16 Respiratory Effort / Characteristics Non-Labored Spontaneous Non-Labored Non-Labored Respiratory Depth Normal Normal Normal Respiratory Pattern Regular Regular Blood Pressure 139/74 Blood Pressure [Left Arm] 134/65 Blood Pressure Mean 95 Blood Pressure Mean [Left Arm] 88 Blood Pressure Position Sitting Blood Pressure Position [Left Arm] Lying Pulse Oximetry 99 98 96 Oxygen Delivery Method Room Air Room Air Sepsis Recent Fever Within 48 Hours No Sepsis Action Taken by Nursing No Action Required GENERAL: sitting up in bed, anxious appearing, talking in full sentences, non- toxic EYE EXAM: normal conjunctiva OROPHARYNX: no exudate, no erythema, lips, buccal mucosa, and tongue normal and mucous membranes are moist NECK: supple, no nuchal rigidity, no adenopathy, non-tender CHEST: incisions under bilateral breasts with bruising which are firm, no madelin rounding discharge, bilateral CANDACE drains in place-serosanguineous LUNGS: Clear to auscultation. Normal chest wall mechanics HEART: tachycardic, S1 normal and S2 normal ABDOMEN: abdomen soft, non-tender, normo-active bowel sounds, no masses, no rebound or guarding. BACK: Back is symmetrical on inspection and there is no deformity, no midline tenderness, no CVA tenderness. SKIN: no rashes and no bruising UPPER EXTREMITIES: upper extremities are grossly normal. LOWER EXTREMITIES: No pitting edema. Calves are equal bilaterally. NEURO EXAM: Normal sensorium, cranial nerves II-XII grossly intact, normal speech, no gross weakness of arms, no gross weakness of legs. Course Course ED COURSE: Vital signs were reviewed and showed hypertension. The patients medical record was reviewed The above diagnostic studies were performed and reviewed. ED treatments and interventions as stated above. 1656: The patient was evaluated in room C07. A complete history and physical examination was performed. 1735: The patient refused chest x-ray and states that she does not want a CT. 2006: Upon reevaluation, the patient is resting.I discussed my findings with the patient and she understands and agrees with the treatment plan. Based on the patients age, coexisting illnesses, exam and lab findings the decision to treat as an inpatient was made. The patient remained stable while under my care. The patient will be evaluated for further management under the care of Dr. Pastor, [facility]. Administered Medications Heparin Sodium/Dextrose (Heparin Sodium/Dextrose) 25,000 units in 500 mls @ 0.02 mls/hr IV .Q24H TARIK; Protocol Stop: 08/15/19 20:14 Last Admin: 07/16/19 20:35 Dose: 1,100 units/hr, 22 mls/hr Documented by: [id number] Cosigned by: [id number] Ioversol (Optiray 320 125ml) 118 ml IV ONCE PRN PRN Reason: Interaction Checking Stop: 07/20/19 19:17 Last Admin: 07/16/19 19:20 Dose: 118 ml Documented by: [id number] Discontinued Medications Aspirin (Aspirin) 324 mg PO NOW STA Stop: 07/16/19 17:04 Last Admin: 07/16/19 18:51 Dose: Not Given Documented by: [id number] Clindamycin HCl (Cleocin) 150 mg PO NOW ONE Stop: 07/16/19 21:20 Last Admin: 07/16/19 21:46 Dose: 150 mg Documented by: [id number] Heparin Sodium (Porcine) (Heparin Iv Bolus) Confirm Administered Dose 10,000 units .ROUTE .STK-MED ONE Stop: 07/16/19 20:24 Last Admin: 07/16/19 20:35 Dose: 10,000 units Documented by: [id number] Cosigned by: [id number] Heparin Sodium/Dextrose () 1 ea IV NOW STA; Protocol Stop: 07/16/19 20:07 Last Admin: 07/16/19 20:40 Dose: Not Given Documented by: [id number] Sodium Chloride (Nss 1000ml) 1,000 mls @ 999 mls/hr IV .Q1H1M ONE Stop: 07/16/19 18:02 Last Infusion: 07/16/19 18:50 Dose: 0 mls/hr Documented by: [id number] Admin: 07/16/19 17:33 Dose: 999 mls/hr Documented by: [id number] Impression & Plan Pulmonary embolism, Chest pain, Shortness of breath Critical Care Time Critical Care Time: Yes Total Critical Care Time: 33 I have personally spent approximately 33 minutes of critical care time in the direct management of this patient. This includes bedside care, interpretation of diagnostic studies, and testing, discussion with consultants, patient, and family members, and other required patient management activities. This 33 minutes is in excess of all separately billable procedures. Discharge Plan Visit Data *Final* Discharge Date/Time: 07/16/19 22:36 Chief Complaint: Shortness of Breath/Dyspnea Stated Complaint: SOB ED Provider: William Cabrales Discharge Problem: Pulmonary embolism, Chest pain, Shortness of breath Patient Disposition: Admitted As Inpatient Discharge Instructions Interventions: ED Discharge Assessment Last Done: 07/16/19 22:36 Medical Decision Making Differential Diagnosis Differential diagnosis includes but is not limited to etiologies such as cardiac ischemia, aortic dissection, pulmonary embolism, pneumonia, pneumothorax, musculoskeletal, infections, pericarditis, myocarditis, esophageal rupture, gastrointestinal, infections, reactive airway disease, pneumonia, pneumothorax, COPD, CHF, cardiac ischemia, pulmonary embolism, musculoskeletal, ga strointestinal, as well as others were entertained. Medical Records Attestation: I reviewed the patient's medical records. Home Medications Current Medication List: was personally reviewed by me Laboratory Data Attestation: I reviewed the patient's lab results. Result diagrams: 07/16/19 17:10 07/16/19 17:10 Lab Results 07/16/19 07/16/19 07/16/19 Range/Units 17:10 17:10 17:10 WBC 7.27 (4.8-10.8) K/uL RBC 4.29 (4.2-5.4) M/uL Hgb 12.8 (12.0-16.0) g/dL Hct 37.8 (37-47) % MCV 88.1 (80-100) fL MCH 29.8 (25-34) pg MCHC 33.9 (32-36) g/dL RDW Std Deviation 47.4 H (36.4-46.3) fL RDW Coeff of Richard 14.6 H (11.5-14.5) % Plt Count 256 (130-400) K/uL MPV 9.8 (7.4-10.4) fL Immature Gran % (Auto) 0.1 % Neut % (Auto) 59.3 % Lymph % (Auto) 29.8 % Clayton % (Auto) 8.4 % Eos % (Auto) 2.1 % Baso % (Auto) 0.3 % Immature Gran # (Auto) 0.01 (0.00-0.02) K/uL Neut # (Auto) 4.31 (1.4-6.5) K/uL Lymph # (Auto) 2.17 (1.2-3.4) K/uL Clayton # (Auto) 0.61 H (0.11-0.59) K/uL Eos # (Auto) 0.15 (0-0.5) K/uL Baso # (Auto) 0.02 (0-0.2) K/uL PT 10.6 (9.0-12.0) Seconds INR 1.0 (0.9-1.1) APTT 24.7 (21.0-31.0) Seconds PTT Ratio 0.9 Sodium 138 (136-145) mmol/L Potassium 3.4 L (3.5-5.1) mmol/L Chloride 102 (98-107) mmol/L Carbon Dioxide 28 (21-32) mmol/L Anion Gap 8.0 (3-11) BUN 9 (7-18) mg/dl Creatinine 1.05 (0.6-1.2) mg/dl Est Cr Clr Drug Dosing 51.6 ml/min Est GFR ( Amer) 64.1 Est GFR (Non-Af Amer) 55.3 BUN/Creatinine Ratio 8.8 L (10-20) Glucose 116 H (70-99) mg/dl Calcium 9.4 (8.5-10.1) mg/dl Total Bilirubin 0.5 (0.2-1) mg/dl AST 23 (15-37) U/L ALT 25 (12-78) U/L Alkaline Phosphatase 65 (45-117) U/L Troponin I < 0.015 (0-0.045) ng/ml Total Protein 7.4 (6.4-8.2) gm/dl Albumin 3.6 (3.4-5.0) gm/dl Globulin 3.8 (2.5-4.0) gm/dl Albumin/Globulin Ratio 1.0 (0.9-2) Urine Color Urine Appearance (Clear) Urine pH (4.5-7.5) Ur Specific Hawkins (1.000-1.030) Urine Protein (Negative) Urine Glucose (UA) (Negative) Urine Ketones (Negative) Urine Blood (Negative) Urine Nitrite (Negative) Urine Bilirubin (Negative) Urine Urobilinogen (Negative) Ur Leukocyte Esterase (Negative) Urine RBC (0-4) /hpf Urine WBC (0-5) /hpf Ur Epithelial Cells (0-5) /lpf Urine Bacteria (Negative) 07/16/19 07/16/19 Range/Units 17:30 19:31 WBC (4.8-10.8) K/uL RBC (4.2-5.4) M/uL Hgb (12.0-16.0) g/dL Hct (37-47) % MCV (80-100) fL MCH (25-34) pg MCHC (32-36) g/dL RDW Std Deviation (36.4-46.3) fL RDW Coeff of Richard (11.5-14.5) % Plt Count (130-400) K/uL MPV (7.4-10.4) fL Immature Gran % (Auto) % Neut % (Auto) % Lymph % (Auto) % Clayton % (Auto) % Eos % (Auto) % Baso % (Auto) % Immature Gran # (Auto) (0.00-0.02) K/uL Neut # (Auto) (1.4-6.5) K/uL Lymph # (Auto) (1.2-3.4) K/uL Clayton # (Auto) (0.11-0.59) K/uL Eos # (Auto) (0-0.5) K/uL Baso # (Auto) (0-0.2) K/uL PT (9.0-12.0) Seconds INR (0.9-1.1) APTT (21.0-31.0) Seconds PTT Ratio Sodium (136-145) mmol/L Potassium (3.5-5.1) mmol/L Chloride (98-107) mmol/L Carbon Dioxide (21-32) mmol/L Anion Gap (3-11) BUN (7-18) mg/dl Creatinine (0.6-1.2) mg/dl Est Cr Clr Drug Dosing ml/min Est GFR ( Amer) Est GFR (Non-Af Amer) BUN/Creatinine Ratio (10-20) Glucose (70-99) mg/dl Calcium (8.5-10.1) mg/dl Total Bilirubin (0.2-1) mg/dl AST (15-37) U/L ALT (12-78) U/L Alkaline Phosphatase (45-117) U/L Troponin I < 0.015 (0-0.045) ng/ml Total Protein (6.4-8.2) gm/dl Albumin (3.4-5.0) gm/dl Globulin (2.5-4.0) gm/dl Albumin/Globulin Ratio (0.9-2) Urine Color Yellow Urine Appearance Slightly Cloudy (Clear) Urine pH 6.0 (4.5-7.5) Ur Specific Hawkins <= 1.005 (1.000-1.030) Urine Protein Negative (Negative) Urine Glucose (UA) Negative (Negative) Urine Ketones Negative (Negative) Urine Blood 1+ H (Negative) Urine Nitrite Negative (Negative) Urine Bilirubin Negative (Negative) Urine Urobilinogen Negative (Negative) Ur Leukocyte Esterase Trace H (Negative) Urine RBC 0-4 (0-4) /hpf Urine WBC 5-10 H (0-5) /hpf Ur Epithelial Cells 5-10 H (0-5) /lpf Urine Bacteria 1+ H (Negative) Imaging Data Radiologist's Impression: Radiology results as stated below per my review and the radiologist's interpretation: CT angio chest PE protocol CLINICAL HISTORY: 64 years-old Female presenting with shortness of breath and tachycardia, recent bilateral breast surgery. TECHNIQUE: Multidetector CT angiography of the chest was performed after administration of intravenous contrast. 3-D volumetric and/or maximum intensity projection (MIP) images were subsequently reconstructed for review. IV contrast: 118 mL of Optiray 320. One or more dose lowering techniques were used consistent with the principles of ALARA (as low as reasonably achievable), including automatic exposure control, mA or kV adjustment to individual patient size, a nd/or use of iterative reconstruction. COMPARISON: Chest x-ray from 07/06/2018. CT DOSE (mGy.cm): The estimated cumulative dose is 458.83 mGy.cm. 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 Pulmonary vasculature: The study is adequate for assessment of the pulmonary vascular tree. Acute pulmonary emboli in segmental and subsegmental pulmonary arteries of the right upper lobe. Main pulmonary artery is not enlarged. No flattening of the interventricular septum. No intracardiac filling defect. No reflux of contrast into the hepatic veins. Remaining chest: Soft tissues: Normal thyroid. Bilateral breast implants with surgical drains in place. Expected soft tissue emphysema and reactive surrounding fluid. Surgical clips noted in the right axilla possibly from prior lymphadenectomy. No axillary, supraclavicular, mediastinal, or hilar lymphadenopathy. Normal aorta. Normal heart size. No pericardial or pleural effusion. Upper abdomen normal. Lungs and airways: No pneumothorax. Central airways patent. Pulmonary arteries mildly enlarged relative to adjacent bronchi. Minimal interlobular septal thickening at the lung bases. Mild mosaic attenuation. Minimal dependent changes likely atelectasis. Solid 3 mm right apical nodule (series 4 image 207). No a dditional nodule is appreciated. Musculoskeletal: Normal osseous structures. No destructive osseous lesions. IMPRESSION: 1. Limited acute pulmonary emboli in segmental and subsegmental pulmonary ar teries of the right upper lobe. No CT evidence of right heart strain. 2. Postsurgical changes of bilateral breast implants. 3. Solid 3 mm right upper lobe nodule. Follow-up per Fleischner Society 2017 recommendations below. Notably, if the patient has a history of malignancy, these criteria do not apply. The report will be called/faxed according to standard departmental protocol for a critical finding. Summary of Fleischner Society 2017 Recommendations (H Loni et al. Guidelines for management of incidental pulmonary nodules detected on CT images: From the Fleischner Society 2017. Radiology 2017; 284: 228-243.) SOLID NODULES Single nodule; size < 6 mm * Low risk patients: No routine follow-up * High risk patients: Optional CT at 12 months Single nodule; size 6-8 mm * Low risk patients: CT at 6-12 months, then consider CT at 18-24 months * High risk patients: CT at 6-12 months, then at 18-24 months Single nodule; size > 8 mm * Either low or high risk patients: Considered CT at 3 months, PET/CT, or tissue sampling Multiple nodules; size < 6 mm * Low risk patients: No routine follow up * High risk patients: Optional CT at 12 months Multiple nodules; size 6-8 mm * Low risk patients: CT at 3-6 months, then consider CT at 18-24 months * High risk patients: CT at 3-6 months, then at 18-24 months Multiple nodules; size > 8 mm * Low risk patients: CT at 3-6 months, then consider at 18-24 months * High risk patients: CT at 3-6 months, then at 18-24 months SUBSOLID NODULES Single ground-glass nodule * Nodule size < 6 mm: No routine follow-up * Nodule size > or = 6 mm: CT at 6-12 months to confirm persistence, then CT every 2 years until 5 years Single part-solid nodule * Nodule size < 6 mm: No routine follow-up * Nodules size > or = 6 mm: CT at 3-6 months to confirm persistence. If unchanged and solid component remains < 6 mm, annual CT should be performed for 5 years Multiple nodules * Nodule size < 6 mm: CT at 3-6 months. If stable, consider CT at 2 and 4 years. * Nodules size > or = 6 mm: CT at 3-6 months. Subsequent management based on the most suspicious nodule(s) NOTE: 1) These guidelines apply to incidental nodules. These guidelines do NOT apply to patients younger than 35 years, immunocompromised patients, or patients with cancer. 2) Risk categories: * Low risk patients: Minimal or absent history of smoking and/or other known risk factors * High risk patients: History of smoking, exposure to other carcinogens, emphy sema, fibrosis, upper lobe location, family history of lung cancer, etc. 3) If a nodule up to 8 mm is partly solid or is ground glass, further follow-up is required after 24 months to exclude possible slow growing adenocarcinoma. Electronically signed by: Norberto Murillo M.D. 07/16/2019 7:33 PM ECG Data Attestation: I personally reviewed and interpreted this ECG as follows: Indication: + SOB/dyspnea Rate (beats per minute): 99 Rhythm: + sinus rhythm ECG Intervals/blocks: + Normal QT ECG Rewey: + Normal ECG Findings: no PVCs Blood Pressure Blood Pressure Findings: Elevated blood pressure Blood Pressure Disposition: Referred to patients primary care provider JOCELYN Narrative Patient is a 64-year-old female status postop from bilateral vasectomy this past at the [facility] for chest pain shortness of breath. Upon presentation she is found to be tachycardic. With her recent surgery she falls into the high risk group and consequently d-dimer was not obtained but rather a CT PE was performed. Had to have multiple conversations in regards to this with the patient and she was eventually agreeable as she initially did not want this done. IV was established blood work was obtained and showed no significant leukocytosis or anemia. INR was unremarkable. BMP with mild hypokalemia. LFTs troponin was negative. UA with a small amount of hematuria. CT PE was performed and showed PEs in the segmental and subsegmental lobes. Patient denied any history of any brain bleeds or recent trauma. No vomiting blood, urinating blood, or dark tarry stools. Does have recent surgery. Risk and benefits were explained. Patient was placed on a heparin drip and given a heparin bolus due to the PEs and was admitted to the hospital for further work- up. Discharge Problem: Pulmonary embolism Qualifiers: Pulmonary embolism type: unspecified Chronicity: unspecified Acute cor pulmonale presence: unspecified Qualified Code(s): I26.99 - Other pulmonary embolism without acute cor pulmonale Chest pain Qualifiers: Chest pain type: unspecified Qualified Code(s): R07.9 - Chest pain, unspecified The scribe's documentation has been prepared under my direction and personally reviewed by me in its entirety. I confirm that the note above accurately reflects all work, treatment, procedures, and medical decision making performed by me.
--- NOTE | 2019-07-16 19:35 | CT Scan Report ---
CT angio chest PE protocol CLINICAL HISTORY: 64 years-old Female presenting with shortness of breath and tachycardia, recent yesika ateral breast surgery. TECHNIQUE: Multidetector CT angiography of the chest was performed after administration of intravenou s contrast. 3-D volumetric and/or maximum intensity projection (MIP) images were subsequently reconst ructed for review. IV contrast: 118 mL of Optiray 320. One or more dose lowering techniques were used consistent with the principles of ALARA (as low as reasonably achievable), including automatic expos ure control, mA or kV adjustment to individual patient size, and/or use of iterative reconstruction. COMPARISON: Chest x-ray from 07/06/2018. CT DOSE (mGy.cm): The estimated cumulative dose is 458.83 mGy.cm. FINDINGS: Freight Separator topogram: Surgical drains project over the bilateral breasts. Pulmonary vasculature: The study is adequate for assessment of the pulmonary vascular tree. Acute pulmonary emboli in segmen rudy and subsegmental pulmonary arteries of the right upper lobe. Main pulmonary artery is not enlarge d. No flattening of the interventricular septum. No intracardiac filling defect. No reflux of contras t into the hepatic veins. Remaining chest: Soft tissues: Normal thyroid. Bilateral breast implants with surgical drains in place. Expected soft tissue emphysema and reactive surrounding fluid. Surgical clips noted in the right axilla possibly fr om prior lymphadenectomy. No axillary, supraclavicular, mediastinal, or hilar lymphadenopathy. Normal aorta. Normal heart size. No pericardial or pleural effusion. Upper abdomen normal. Lungs and airways: No pneumothorax. Central airways patent. Pulmonary arteries mildly enlarged relati ve to adjacent bronchi. Minimal interlobular septal thickening at the lung bases. Mild mosaic attenua tion. Minimal dependent changes likely atelectasis. Solid 3 mm right apical nodule (series 4 image 20 7). No additional nodule is appreciated. Musculoskeletal: Normal osseous structures. No destructive osseous lesions. IMPRESSION: 1. Limited acute pulmonary emboli in segmental and subsegmental pulmonary arteries of the right uppe r lobe. No CT evidence of right heart strain. 2. Postsurgical changes of bilateral breast implants. 3. Solid 3 mm right upper lobe nodule. Follow-up per Fleischner Society 2017 recommendations below. Notably, if the patient has a history of malignancy, these criteria do not apply. The report will be called/faxed according to standard departmental protocol for a critical finding. Summary of Fleischner Society 2017 Recommendations (H Loni, et al. Guidelines for management of i ncidental pulmonary nodules detected on CT images: From the Fleischner Society 2017. Radiology 2017; 284: 228-243.) SOLID NODULES Single nodule; size < 6 mm * Low risk patients: No routine follow-up * High risk patients: Optional CT at 12 months Single nodule; size 6-8 mm * Low risk patients: CT at 6-12 months, then consider CT at 18-24 months * High risk patients: CT at 6-12 months, then at 18-24 months Single nodule; size > 8 mm * Either low or high risk patients: Considered CT at 3 months, PET/CT, or tissue sampling Multiple nodules; size < 6 mm * Low risk patients: No routine follow up * High risk patients: Optional CT at 12 months Multiple nodules; size 6-8 mm * Low risk patients: CT at 3-6 months, then consider CT at 18-24 months * High risk patients: CT at 3-6 months, then at 18-24 months Multiple nodules; size > 8 mm * Low risk patients: CT at 3-6 months, then consider at 18-24 months * High risk patients: CT at 3-6 months, then at 18-24 months SUBSOLID NODULES Single ground-glass nodule * Nodule size < 6 mm: No routine follow-up * Nodule size > or = 6 mm: CT at 6-12 months to confirm persistence, then CT every 2 years until 5 y ears Single part-solid nodule * Nodule size < 6 mm: No routine follow-up * Nodules size > or = 6 mm: CT at 3-6 months to confirm persistence. If unchanged and solid componen t remains < 6 mm, annual CT should be performed for 5 years Multiple nodules * Nodule size < 6 mm: CT at 3-6 months. If stable, consider CT at 2 and 4 years. * Nodules size > or = 6 mm: CT at 3-6 months. Subsequent management based on the most suspicious nod ule(s) NOTE: 1) These guidelines apply to incidental nodules. These guidelines do NOT apply to patients younger th an 35 years, immunocompromised patients, or patients with cancer. 2) Risk categories: * Low risk patients: Minimal or absent history of smoking and/or other known risk factors * High risk patients: History of smoking, exposure to other carcinogens, emphysema, fibrosis, upper lobe location, family history of lung cancer, etc. 3) If a nodule up to 8 mm is partly solid or is ground glass, further follow-up is required after 24 months to exclude possible slow growing adenocarcinoma. Electronically signed by: Norberto Murillo M.D. 07/16/2019 7:33 PM
[2019-07-16] MEDS ORDERED: HEPARIN SOD (PORCINE) 1000 UNIT/ML 10 ML VIAL ONE (20:23)
[2019-07-16] MEDS: HEPARIN SODIUM/DEXTROSE 25,000 UNITS/500 ML BAG IV SCH (20:35)
--- NOTE | 2019-07-16 20:46 | History & Physical Report ---
Date of Service July 16, 2019 Assessment & Plan (1) Pulmonary embolism: Joanne is a 64-year-old female with a strong family history of pulmonary emboli I do had bilateral mastectomy with reconstruction 4 days ago at [facility] who presents with acute chest and throat tightness and who is being admitted for acute PE. Submassive provoked pulmonary embolism No hemodynamic instability, normotensive CTA shows segmental and subsegmental right upper lobe PEs without evidence of right heart strain Heparin GTT.Recommend targeting a lower therapeutic threshold given patient's risk of bleeding Carefully observe CANDACE drains. 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 Levin and Dr. Urrutia last Continue clindamycin 150 mg 3 times daily per her primary surgical team Continue to follow CANDACE drain output as above Pain control with acetaminophen as needed. 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 at this time, feels the Benadryl will help sufficiently for her sleep Diet: Regular CODE STATUS: Full code DVT prophylaxis: Heparin as above Disposition: Telemetry/PCU (2) Shortness of breath: (3) GERD (gastroesophageal reflux disease): (4) Wheezing: (5) DCIS (ductal carcinoma in situ) of breast: (6) Breast ductal hyperplasia, atypical: (7) Anxiety: History of Present Illness Chief Complaint: Chest Tightness Primary Care Provider: Josie Peace MD Joanne is a 64-year-old female with a past medical history of bilateral mastectomy with breast reconstruction 4 days ago who presents with less than 1 day of acute onset severe chest and throat tightness without associated chest pain, chest pressure, or pleuritic pain. Joanne reports around 4 PM today she developed severe chest tightness and a feeling of tightness in her throat. She denies difficulty breathing, but had a feeling of shortness of breath. Denies any chest pressure, chest pain, or pain radiating into her shoulder or jaw. She got a little lightheaded, but not dizzy. She did not experience palpitations. She was immediately concerned about a pulmonary embolism because she had a brother who of a PE, and her daughter has also had a PE in the past. 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 Levin and reconstruction was performed by Dr. Urrutia at the [facility]. She received 2 doses of posto perative 5000 units heparin and then was discharged home. She had a 5-hour drive home, which she stopped 3 times to walk. Her postoperative course has been going mostly well, however she has severe dermatitis from a tape allergy on the center of her chest and under her right breast. Her dermatitis is intensely itchy, but improved somewhat with hydrocortisone cream and Benadryl. She is careful not to use any hydrocortisone cream near her surgical incisions. She has 4 CANDACE drains present, 2 draining on the right and 2 on the left. Denies other symptoms, see ROS. Medical history: Anxiety, GERD, PVCs, mitral prolapse, breast cancer as noted above. Surgical history: Reviewed Social history: , lives with her . 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 No current or former tobacco use. No current or former substance use. Drinks alcohol 2-3 times a week 1-2 in a setting. Allergies Allergy/AdvReac Type Severity Reaction Status Date / Time cephalexin Allergy Intermediate HIVES Verified 07/16/19 18:57 Sulfa (Sulfonamide Allergy Intermediate HIVES Verified 07/16/19 18:58 Antibiotics) adhesive tape Allergy REDNESS OF Unverified 07/16/19 18:57 SKIN,RASH Home Medications Home Medications Medication Instructions Recorded Confirmed Type albuterol sulfate 2 puff INHALATION Q6H PRN 12/05/18 07/16/19 History ranitidine HCl [Zantac] 150 mg PO DAILY PRN 12/05/18 07/16/19 History pantoprazole 40 mg tablet,delayed 40 mg PO QAM #90 tab 03/23/19 07/16/19 Rx release citalopram 20 mg tablet 20 mg PO DAILY #90 tab 05/30/19 07/16/19 Rx clindamycin phosphate 1 % topical 1 appln TOPICAL DAILY #1 ml 06/15/19 07/16/19 History solution acetaminophen [Tylenol Extra 500 mg PO Q6H PRN 07/16/19 07/16/19 History Strength] alprazolam 0.25 mg PO BID PRN 07/16/19 07/16/19 History clindamycin HCl 150 mg PO TID 07/16/19 07/16/19 History diphenhydramine HCl 50 mg PO Q8H PRN 07/16/19 07/16/19 History hydrocodone-acetaminophen 1 tab PO Q6H PRN 07/16/19 07/16/19 History Past Med/Surg History Medical History Anxiety SITUATIONAL GERD (gastroesophageal reflux disease) Hiatal hernia MVP (mitral valve prolapse) HX-NO PREMED WITH DENTAL Pneumonia 05/2018 PVC (premature ventricular contraction) ON OCC Surgical History History of colonoscopy History of dilation and curettage History of esophagogastroduodenoscopy (EGD) History of hemorrhoidectomy History of tonsillectomy Hx of lumpectomy RIGHT PLUS RADIATION-12 YRS AGO Hx of lumpectomy LEFT NO RADIATION 2017 Family History Sister Family history of diabetes mellitus Mother Family history of diabetes mellitus Hypertension Aunt Family history of diabetes mellitus Myocardial infarction acute Father Myocardial infarction acute Grandfather Cancer Brother Clotting disorder Social History Preferred Language: Kenyan Communication Ability: Effective 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 Beliefs That Will Affect Care: None marital status: Current Living Situation: Spouse current occupational status: retired 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 Other Information That Helps Us Care for You: No Feels Safe at Home: Yes Safety Concerns: Feels Safe At This Time Smoking Status: Never smoker Second Hand Exposure: No ; Hx Alcohol Use: Yes Alcohol type: wine and hard liquor Hx Substance Use: No Review of Systems Constitutional: + chills; no fever, no sweats, no body aches, no fatigue and no weakness Eyes: no spots in vision, no worsening vision and no problem reported Ear, Nose, Mouth, Throat: no ear pain, no dizziness, no nasal congestion, no sore throat, no change in voice, no hoarseness and no dysphagia Respiratory: + dyspnea and + dyspnea on exertion; no cough, no chest congestion, no change in sputum, no hemoptysis, no pain on inspiration and no wheezing Cardiovascular: + dyspnea, + dyspnea at rest, + dyspnea on exertion and + lightheadedness; no chest pain, no chest pain at rest, no chest pain with activity, no radiating jaw, neck or arm pain, no palpitations, no syncope, no edema and no calf pain Gastrointestinal: no abdominal pain, no nausea, no vomiting, no constipation, no diarrhea/loose stools and no melena Genitourinary: no dysuria, no difficulty urinating, no urinary frequency and no urinary incontinence Musculoskeletal: no back pain, no neck pain, no joint pain and no myalgia Integumentary: + rash (as noted in HPI, dermatitis 2/2 tape allergy) CANDACE drains, post surgical breast incisions. See HPI. Physical Exam Physical Exam: General: A&Ox3. NAD. Cooperative. Nontoxic. HEENT: Atraumatic, normocephalic. External ear anatomy normal. External nasal anatomy normal. Mucous membranes moist. No posterior pharynx erythema or exudate. Uvula midline. Neck supple. No anterior/posterior cervical chain mick nopathy. No clavicular adenopathy. Pulm: CTAB A&P. Trace expiratory wheeze in right lower lobe, otherwise no wheezes, -rales, -rhonchi. Symmetrical chest rise. No increase work of breathing. No respiratory distress. Cardiac: Tachycardic, -mrg. Radial pulses intact and symmetrical. PT pulses intact and symmetrical Abdominal: Nontender, nondistended, soft. BS present. Skin/thorax: Postsurgical mastectomy and breast reconstruction changes bilaterally. Breasts with bruising on the inferior aspects bilaterally. Surgical incisions clean, dry, well healing and without dehiscence or discharge. Distal sternum and infra right breast with pruritic, papular erythema which is mostly itchy but mildly tender on palpation. 2X CANDACE drains present on the right, 2X CANDACE drains present on the left all 4 draining serosanguineous fluid. Results & Data Vital Signs (Past 12 Hours) Vital Signs Temp Pulse Resp BP Pulse Ox 07/16/19 17:03 98 07/16/19 16:49 36.9 C 107 H 22 139/74 99 Supervising Physician Co-Signing Physician Notes Patient seen and examined, chart reviewed, case discussed with Dr. Lloyd and I agree with his assessment and plan as documented above. Briefly, Joanne Brandon is a pleasant 64-year-old female with history of recurrent right breast cancer, status post bilateral mastectomy with breast reconstruction performed 4 days ago at [facility]. Per report, surgery was well t olerated with no complications identified. She presents today with some chest tightness, found to have segmental and subsegmental right upper lobe pulmonary emboli. On physical exam she is afebrile, hemodynamically stable, adequate oxygenation on room air with no evidence of respiratory distress. Skinpatient with CANDACE drain x4 in place with minimal serosanguineous output. Incision site in right axilla well approximated with no bleeding/drainage/erythema. Inframammary incisions with Steri-Strips in place. No bleeding/erythema/drainage. Dermatitis along upper abdomen. HEENTnormocephalic atraumatic, pupils equal and reactive to light, neck supple, moist mucous membranes HeartS1-S2 present, tachycardic, no murmurs/rubs/gallops Lungsequal air entry bilaterally, no rales/rhonchi/wheezes Abdomenbowel sounds present, soft, nontender/nondistended Extremitieswarm, well-perfused, no edema, no tenderness Neurogrossly intact Labs and images reviewed. Hemoglobin = 12.8, hematocrit = 37.8 CTA with limited acute pulmonary emboli in segmental and subsegmental pulmonary arteries of the right upper lobe. No CT evidence of right heart strain. Postsurgical changes of bilateral breast implants. Solid 3 mm right upper lobe nodule. Assessment/[id number] female status post bilateral mastectomy with breast reconstruction performed 4 days ago at [facility] presenting with acute pulmonary emboli. Patient is hemodynamically stable, no respiratory distress, adequate oxygenation on room air, pain/discomfort is minimal. She is at risk for bleeding given her fairly recent surgery. -Continue heparin drip, closely monitor CANDACE drain output and CBC. Would most likely consider this to be a provoked PE in setting of recent surgery. Patient will need anticoagulation for 3 to 6 months at least -Consider consultation with general surgery. Patient is known to Dr. Santana -Obtain records from [facility] -Remainder of plan as above Resident Activity Tracking Resident Involvement: Resident Care Provided Care Provided: Adult Hospital Medicine (1) Pulmonary embolism Acute cor pulmonale presence: unspecified Chronicity: unspecified Pulmonary embolism type: unspecified Qualified Code(s): I26.99 - Other pulmonary embolism without acute cor pulmonale
[2019-07-16] MEDS ORDERED: CLINDAMYCIN HCL 150 MG CAP PO ONE (21:19)
[2019-07-16] MEDS ORDERED: ALBUTEROL HFA 8 GM INHALER INH PRN (22:40)
[2019-07-16] MEDS ORDERED: POLYETHYLENE (MIRALAX) 17 GM PACK PO PRN (22:40)
[2019-07-16] MEDS ORDERED: ACETAMINOPHEN 500 MG TAB PO PRN (22:40)
[2019-07-16 23:23] LABS: BUN Creatinine Ratio 8.4 (10-20); Calcium 9.4 mg/dl (8.5-10.1); Creatinine Clr Calc Pharmacy 57.3 ml/min; Est GFR (African American) 73.3; Est GFR (Non-African American) 63.2; Potassium 3.8 mmol/L (3.5-5.1)
[2019-07-16] MEDS: POTASSIUM CHLORIDE 20 MEQ TABCR PO SCH (23:32)
--- NOTE | 2019-07-16 23:58 | Billing Data ---
Coding Level of Care Code 56127 OBS Care - Level 3
[2019-07-17 03:12] LABS: Basophils # (auto) 0.01 K/uL (0-0.2); Basophils % (auto) 0.1 %; Eosinophils # (auto) 0.21 K/uL (0-0.5); Eosinophils % (auto) 2.6 %; Hematocrit (blood only) 36.3 % (37-47); Hemoglobin 12.3 g/dL (12.0-16.0); Immature Granulocytes # (auto) 0.02 K/uL (0.00-0.02); Immature Granulocytes % (auto) 0.2 %; Lymphocytes # (auto) 2.14 K/uL (1.2-3.4); Lymphocytes % (auto) 26.2 %; Mean Corpuscular Hemoglobin 29.5 pg (25-34); Mean Corpuscular Hgb Conc 33.9 g/dL (32-36); Mean Corpuscular Volume 87.1 fL (80-100); Monocytes # (auto) 0.65 K/uL (0.11-0.59); Neutrophils # (auto) 5.13 K/uL (1.4-6.5); Neutrophils % (auto) 62.9 %; Platelet Count 252 K/uL (130-400); RDW Coefficient of Variation 14.7 % (11.5-14.5); RDW Standard Deviation 46.6 fL (36.4-46.3); Red Blood Count 4.17 M/uL (4.2-5.4); White Blood Count 8.16 K/uL (4.8-10.8)
[2019-07-17 03:31] LABS: BUN Creatinine Ratio 8.4 (10-20); Creatinine Clr Calc Pharmacy 62.6 ml/min; Est GFR (African American) 81.6; Est GFR (Non-African American) 70.4; Potassium 3.8 mmol/L (3.5-5.1)
[2019-07-17 03:36] LABS: Partial Thromboplastin Ratio 2.6
[2019-07-17 03:50] LABS: Partial Thromboplastin Time 70.9 Seconds (21.0-31.0)
--- NOTE | 2019-07-17 08:44 | Surgery Consultation ---
Date of Consultation July 17, 2019 Assessment & Plan (1) Pulmonary embolism: This is a 64y F who is recently s/p bilateral mastectomy with reconstruction at [facility] last who presents to the [facility] now here with pulmonary embolism. Patient was admitted to the medicine service and started on a heparin gtt. This AM patient's Hbg is stable. Since started gtt patient's PTT bumped from 24 to 70.9 and her right sided JPs turned from serous to serosanguineous. They have not have high output since admission. We would recommend pausing heparin gtt for a few hours, then resuming it at a lower rate and slowly titrate to goal. Continue to monitor daily Hbg for any downtrend. Co ntinue to monitor CANDACE drains for increased output or increased bloody drainage and observe for any hematoma's of breasts. Recommend medicine team call patient's [facility] surgeon's for any additional input and to make them aware of patient's admission (Dr. Levin: [phone] & Dr. Urrutia: [phone]). Could consult Dr. Barros for additional recommendations regarding anticoagulation. Our thoughts are likely patient continue hep gtt then transition to po coumadin so that she can be reversed if needed. We will continue to follow patient and Dr. Santana will see her later today. Dr Santana- safe on IV Heparin- appreciate consultants- to determine anticoagulant for fdc therapy- hold coumadin agree with above History of Present Illness Attending Physician: Yuridia Ferreira MD History of Present Illness This is a 64y F with a PMH of bilateral mastectomy with reconstruction last 07/12/19 at the [facility] who presents to [facility] ED yesterday with complaints of chest pressure and throat tightness. Patient states these symptoms started around 4:30pm yesterday and she blacked out for a second and was immediately concerned for a pulmonary embolism. She took 4 baby aspirin and used her albuterol inhaler and came to the ED for further evaluation. Of note her surgery was performed last by Dr. Levin and Dr. Urrutia, she was discharged on Tuesday where she stayed at her sister's house, and then drove ~5 hours home on Tuesday07/15/19 where she said she took 3 walk breaks. When she arrived to the ED she endorsed shortness of breath, chest pressure, and throat tightness. She denied any leg pain, nausea/vomiting. In the ED a CTA was performed revealing limited acute pulmonary emboli in segmental and subsegmental pulmonary arteries of the right upper lobe. No CT evidence of right heart strain. She was admitted under medicine and was started on a heparin gtt. Surgery was consulted for guidance and recommendations as patient is newly post op. She does have CANDACE x4. Dr. Santana has seen patient in the clinic last month. Patient does have a family history of blood clots, her brother from a PE, and her daughter had an upper extremity DVT in the past. Allergies Allergy/AdvReac Type Severity Reaction Status Date / Time cephalexin Allergy Intermediate HIVES Verified 07/16/19 18:57 Sulfa (Sulfonamide Allergy Intermediate HIVES Verified 07/16/19 18:58 Antibiotics) adhesive tape Allergy REDNESS OF Unverified 07/16/19 18:57 SKIN,RASH Home Medications Home Medications Medication Instructions Recorded Confirmed Type albuterol sulfate 2 puff INHALATION Q6H PRN 12/05/18 07/16/19 History ranitidine HCl [Zantac] 150 mg PO DAILY PRN 12/05/18 07/16/19 History pantoprazole 40 mg tablet,delayed 40 mg PO QAM #90 tab 03/23/19 07/16/19 Rx release citalopram 20 mg tablet 20 mg PO DAILY #90 tab 05/30/19 07/16/19 Rx clindamycin phosphate 1 % topical 1 appln TOPICAL DAILY #1 ml 06/15/19 07/16/19 History solution acetaminophen [Tylenol Extra 500 mg PO Q6H PRN 07/16/19 07/16/19 History Strength] alprazolam 0.25 mg PO BID PRN 07/16/19 07/16/19 History clindamycin HCl 150 mg PO TID 07/16/19 07/16/19 History diphenhydramine HCl 50 mg PO Q8H PRN 07/16/19 07/16/19 History hydrocodone-acetaminophen 1 tab PO Q6H PRN 07/16/19 07/16/19 History Patient History Medical History Anxiety SITUATIONAL GERD (gastroesophageal reflux disease) Hiatal hernia MVP (mitral valve prolapse) HX-NO PREMED WITH DENTAL Pneumonia 05/2018 PVC (premature ventricular contraction) ON OCC Surgical History History of colonoscopy History of dilation and curettage History of esophagogastroduodenoscopy (EGD) History of hemorrhoidectomy History of tonsillectomy Hx of lumpectomy RIGHT PLUS RADIATION-12 YRS AGO Hx of lumpectomy LEFT NO RADIATION 2016 Family History Sister Family history of diabetes mellitus Mother Family history of diabetes mellitus Hypertension Aunt Family history of diabetes mellitus Myocardial infarction acute Father Myocardial infarction acute Grandfather Cancer Brother Clotting disorder Daughter Pulmonary embolism Social History Preferred Language: Israeli Communication Ability: Effective Machine Ii Cutter Required: No Beliefs That Will Affect Care: None marital status: Current Living Situation: Spouse current occupational status: retired 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 right breast ecchymosis somewhat worse. CANDACE x2 on left with serous output CANDACE x2 on right with serosanguineous output dermatitis rash between rash improving Physical Exam Physical Exam: awake/alert Constitutional: well developed, well nourished, cooperative and comfortable; no acute distress and not ill appearing Respiratory: normal respiratory effort; no respiratory distress and no labored breathing respirating normally on room air Cardiovascular: Rate/Rhythm: regular rate Chest (Breasts): Additional Comments: Right sentinel node incision c/d/i. Left CANDACE# 1 (3cc), #2 (10cc) both serous Right CANDACE #3 (15cc), #4 (7cc) both serosang. Right breast ecchymosis centrally around nipple Dermatitis rash in between breasts Results & Data Vital Signs (Past 12 Hours) Vital Signs Temp Pulse Pulse Resp BP Pulse Ox 07/17/19 07:26 37.1 C 83 16 136/84 90 07/17/19 07:12 77 07/17/19 04:05 36.8 C 78 20 124/73 94 07/16/19 23:31 99 H 07/16/19 22:40 37.4 C 96 H 20 120/76 96 07/16/19 22:00 96 H 16 130/64 95 07/16/19 20:45 87 16 134/[address] angio chest PE protocol CLINICAL HISTORY: 64 years-old Female presenting with shortness of breath and tachycardia, recent bilateral breast surgery. TECHNIQUE: Multidetector CT angiography of the chest was performed after administration of intravenous contrast. 3-D volumetric and/or maximum intensity projection (MIP) images were subsequently reconstructed for review. IV contrast: 118 mL of Optiray 320. One or more dose lowering techniques were used consistent with the principles of ALARA (as low as reasonably achievable), including automatic exposure control, mA or kV adjustment to individual patient size, and/or use of iterative reconstruction. COMPARISON: Chest x-ray from 07/06/2018. CT DOSE (mGy.cm): The estimated cumulative dose is 458.83 mGy.cm. FINDINGS: Dean Of Men topogram: Surgical drains project over the bilateral breasts. Pulmonary vasculature: The study is adequate for assessment of the pulmonary vascular tree. Acute pulmonary emboli in segmental and subsegmental pulmonary arteries of the right upper lobe. Main pulmonary artery is not enlarged. No flattening of the interventricular septum. No intracardiac filling defect. No reflux of contrast into the hepatic veins. Remaining chest: Soft tissues: Normal thyroid. Bilateral breast implants with surgical drains in place. Expected soft tissue emphysema and reactive surrounding fluid. Surgical clips noted in the right axilla possibly from prior lymphadenectomy. No axillary, supraclavicular, mediastinal, or hilar lymphadenopathy. Normal aorta. Normal heart size. No pericardial or pleural effusion. Upper abdomen normal. Lungs and airways: No pneumothorax. Central airways patent. Pulmonary arteries mildly enlarged relative to adjacent bronchi. Minimal interlobular septal thickening at the lung bases. Mild mosaic attenuation. Minimal dependent changes likely atelectasis. Solid 3 mm right apical nodule (series 4 image 207). No additional nodule is appreciated. Musculoskeletal: Normal osseous structures. No destructive osseous lesions. IMPRESSION: 1. Limited acute pulmonary emboli in segmental and subsegmental pulmonary arteries of the right upper lobe. No CT evidence of right heart strain. 2. Postsurgical changes of bilateral breast implants. 3. Solid 3 mm right upper lobe nodule. Follow-up per Fleischner Society 2017 recommendations below. Notably, if the patient has a history of malignancy, these criteria do not apply. The report will be called/faxed according to standard departmental protocol for a critical finding. Summary of Fleischner Society 2017 Recommendations (H Loni et al. Guidelines for management of incidental pulmonary nodules detected on CT images: From the Fleischner Society 2017. Radiology 2017; 284: 228-243.) SOLID NODULES Single nodule; size < 6 mm * Low risk patients: No routine follow-up * High risk patients: Optional CT at 12 months Single nodule; size 6-8 mm * Low risk patients: CT at 6-12 months, then consider CT at 18-24 months * High risk patients: CT at 6-12 months, then at 18-24 months Single nodule; size > 8 mm * Either low or high risk patients: Considered CT at 3 months, PET/CT, or tissue sampling Multiple nodules; size < 6 mm * Low risk patients: No routine follow up * High risk patients: Optional CT at 12 months Multiple nodules; size 6-8 mm * Low risk patients: CT at 3-6 months, then consider CT at 18-24 months * High risk patients: CT at 3-6 months, then at 18-24 months Multiple nodules; size > 8 mm * Low risk patients: CT at 3-6 months, then consider at 18-24 months * High risk patients: CT at 3-6 months, then at 18-24 months SUBSOLID NODULES Single ground-glass nodule * Nodule size < 6 mm: No routine follow-up * Nodule size > or = 6 mm: CT at 6-12 months to confirm persistence, then CT every 2 years until 5 years Single part-solid nodule * Nodule size < 6 mm: No routine follow-up * Nodules size > or = 6 mm: CT at 3-6 months to confirm persistence. If unchanged and solid component remains < 6 mm, annual CT should be performed for 5 years Multiple nodules * Nodule size < 6 mm: CT at 3-6 months. If stable, consider CT at 2 and 4 years. * Nodules size > or = 6 mm: CT at 3-6 months. Subsequent management based on the most suspicious nodule(s) NOTE: 1) These guidelines apply to incidental nodules. These guidelines do NOT apply to patients younger than 35 years, immunocompromised patients, or patients with cancer. 2) Risk categories: * Low risk patients: Minimal or absent history of smoking and/or other known risk factors * High risk patients: History of smoking, exposure to other carcinogens, emphysema, fibrosis, upper lobe location, family history of lung cancer, etc. 3) If a nodule up to 8 mm is partly solid or is ground glass, further follow-up is required after 24 months to exclude possible slow growing adenocarcinoma. Electronically signed by: Norberto Murillo M.D. 07/16/2019 7:33 PM PG Care Time/CCT Total # of Minutes Spent Total Time Spent with Patient: Total time spent is greater than 50% in coordination of care (as documented) at patient's floor/unit and/or counseling patient: (1) Pulmonary embolism Acute cor pulmonale presence: unspecified Chronicity: unspecified Pulmonary embolism type: unspecified Qualified Code(s): I26.99 - Other pulmonary embolism without acute cor pulmonale
[2019-07-17] MEDS: POTASSIUM CHLORIDE 20 MEQ TABCR PO SCH ×2 (09:04→21:14)
[2019-07-17] MEDS: CLINDAMYCIN HCL 150 MG CAP PO SCH ×3 (09:05→21:14)
[2019-07-17] MEDS: CITALOPRAM 20 MG TAB PO SCH (09:05)
[2019-07-17] MEDS: PANTOprazole 40 MG TAB PO SCH (09:05)
[2019-07-17] MEDS: ACETAMINOPHEN 325 MG TAB PO PRN ×2 (09:12→21:16)
--- NOTE | 2019-07-17 09:59 | Hospitalist Progress Note ---
Date of Service July 17, 2019 Assessment & Plan (1) Pulmonary embolism: Ms. Yung is a 64-year-old female with s/p bilateral mastectomy with reconstruction on 07/12/19 who presents with pulmonary emboli in [place]. Pulmonary embolism -Pt presented with chest and throat tightness, palpitations Currently hemodynamically stable CTA shows segmental and subsegmental right upper lobe PEs without evidence of right heart strain -continue heparin drip with lower therapeutic goal; custom protocol made in conjunction with pharmacy. -will continue to monitor -[facility] docs have been contacted; awaiting response -per general surgery and hematology consults here--f/u with primary team at [facility] prudent. Appreciate recs. 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 -States she has "atypical cells" in left breast so opted for bilateral mastectomy. Had surgery performed at [facility] by Dr. Levin and Dr. Urrutia 07/12/19 -Has not had followup appointments yet so pt unsure of next steps (?chemo, ?radiation therapy) Continue clindamycin 150 mg 3 times daily per her primary surgical team Continue to follow CANDACE drain output as above Pain control with acetaminophen as needed. Patient was on hydrocodoneAPAP prior to admission, but feels that APAP alone will be sufficient for her pain -appreciate recs of general and plastic surgery, hematology. Dermatitis Patient has a history of tape allergy, has a dermatitis reaction in the distal sternum and under the right breast. May use small amounts of hydrocortisone cream but DO NOT use any topical corticosteroid within 5 inches of a surgical incision Continue Benadryl 50 mg every 8 hours as needed History of GERD Continue Protonix 40 mg daily Continue ranitidine 150 mg daily as needed History of anxiety Continue citalopram 20 mg daily continue holding her [employer] alprazolam at this time, feels the Benadryl will help sufficiently for her sleep Diet: Regular CODE STATUS: Full code DVT prophylaxis: On heparin Disposition: Telemetry/PCU Supervising Physician Co-Signing Physician Notes Resident Physician Supervision Note: I independently interviewed and examined the patient and verified the espana history and physical, reviewed labs and image studies, discussed the case with the resident Dr. Resendiz and agree with the findings and care plan. Subjective Ms. Yung states she is doing much better this AM in terms of her presenting chest and throat tightness. Denies any headache, blurry vision, dizziness, chest pain, SOB, palpitations currently. There was also concern this AM about bright red fluid in the right CANDACE drain. She was on heparin for anticoagulation. States she follows with dr. malave who referred her to the [facility] and would also like contact to be made with her breast and plastic surgeons there. Review of Systems Review of Systems: All systems reviewed & are unremarkable except as noted in HPI & below Physical Exam Physical Exam: General: Alert, oriented. No acute distress Skin: No noted rashes or bruises. Psych: Appropriate mood and affect Neuro: No gross deficits HEENT: NC/AT, PERRLA, EOMI, oropharynx moist. Chest: Nontender to palpation. Bilateral CANDACE drainsx4 CV: RRR, Normal s1, s2. No murmurs appreciated Resp: Breath sounds clear bilaterally, no increased effort of breathing. No crackles/rhonchi/rales. Abdomen: Soft, nontender, nondistended. No guarding. No organomegaly appreciated. Extremities: No edema in lower extremities bilaterally. Results & Data Vital Signs (Past 12 Hours) Vital Signs Temp Pulse Pulse Resp BP Pulse Ox 07/17/19 07:26 37.1 C 83 16 136/84 90 07/17/19 07:12 77 07/17/19 04:05 36.8 C 78 20 124/73 94 07/16/19 23:31 99 H 07/16/19 22:40 37.4 C 96 H 20 120/76 96 07/16/19 22:00 96 H 16 130/64 95 Laboratory Results Laboratory Results - last 24 hr 07/16/19 07/16/19 07/16/19 17:10 17:10 17:10 WBC 7.27 RBC 4.29 Hgb 12.8 Hct 37.8 MCV 88.1 MCH 29.8 MCHC 33.9 RDW Std Deviation 47.4 H RDW Coeff of Richard 14.6 H Plt Count 256 MPV 9.8 Immature Gran % (Auto) 0.1 Neut % (Auto) 59.3 Lymph % (Auto) 29.8 Glasscock % (Auto) 8.4 Eos % (Auto) 2.1 Baso % (Auto) 0.3 Immature Gran # (Auto) 0.01 Neut # (Auto) 4.31 Lymph # (Auto) 2.17 Glasscock # (Auto) 0.61 H Eos # (Auto) 0.15 Baso # (Auto) 0.02 PT 10.6 INR 1.0 APTT 24.7 PTT Ratio 0.9 Sodium 138 Potassium 3.4 L Chloride 102 Carbon Dioxide 28 Anion Gap 8.0 BUN 9 Creatinine 1.05 Est Cr Clr Drug Dosing 51.6 Est GFR ( Amer) 64.1 Est GFR (Non-Af Amer) 55.3 BUN/Creatinine Ratio 8.8 L Glucose 116 H Calcium 9.4 Total Bilirubin 0.5 AST 23 ALT 25 Alkaline Phosphatase 65 Troponin I < 0.015 Total Protein 7.4 Albumin 3.6 Globulin 3.8 Albumin/Globulin Ratio 1.0 Urine Color Urine Appearance Urine pH Ur Specific [place] Urine Protein Urine Glucose (UA) Urine Ketones Urine Blood Urine Nitrite Urine Bilirubin Urine Urobilinogen Ur Leukocyte Esterase Urine RBC Urine WBC Ur Epithelial Cells Urine Bacteria 07/16/19 07/16/19 07/16/19 17:30 19:31 22:55 WBC RBC Hgb Hct MCV MCH MCHC RDW Std Deviation RDW Coeff of Richard Plt Count MPV Immature Gran % (Auto) Neut % (Auto) Lymph % (Auto) [place] % (Auto) Eos % (Auto) Baso % (Auto) Immature Gran # (Auto) Neut # (Auto) Lymph # (Auto) [place] # (Auto) Eos # (Auto) Baso # (Auto) PT INR APTT PTT Ratio Sodium 139 Potassium 3.8 Chloride 104 Carbon Dioxide 27 Anion Gap 8.0 BUN 8 Creatinine 0.94 Est Cr Clr Drug Dosing 57.3 Est GFR ( Amer) 73.3 Est GFR (Non-Af Amer) 63.2 BUN/Creatinine Ratio 8.4 L Glucose 112 H Calcium 9.4 Total Bilirubin AST ALT Alkaline Phosphatase Troponin I < 0.015 Total Protein Albumin Globulin Albumin/Globulin Ratio Urine Color Yellow Urine Appearance Slightly Cloudy Urine pH 6.0 Ur Specific [place] <= 1.005 Urine Protein Negative Urine Glucose (UA) Negative Urine Ketones Negative Urine Blood 1+ H Urine Nitrite Negative Urine Bilirubin Negative Urine Urobilinogen Negative Ur Leukocyte Esterase Trace H Urine RBC 0-4 Urine WBC 5-10 H Ur Epithelial Cells 5-10 H Urine Bacteria 1+ H 07/17/19 07/17/19 07/17/19 02:48 02:48 02:48 WBC 8.16 RBC 4.17 L Hgb 12.3 Hct 36.3 L MCV 87.1 MCH 29.5 MCHC 33.9 RDW Std Deviation 46.6 H RDW Coeff of Richard 14.7 H Plt Count 252 MPV 10.0 Immature Gran % (Auto) 0.2 Neut % (Auto) 62.9 Lymph % (Auto) 26.2 [place]cock % (Auto) 8.0 Eos % (Auto) 2.6 Baso % (Auto) 0.1 Immature Gran # (Auto) 0.02 Neut # (Auto) 5.13 Lymph # (Auto) 2.14 [place] # (Auto) 0.65 H Eos # (Auto) 0.21 Baso # (Auto) 0.01 PT INR APTT 70.9 H* PTT Ratio 2.6 Sodium 139 Potassium 3.8 Chloride 104 Carbon Dioxide 28 Anion Gap 7.0 BUN 7 Creatinine 0.86 Est Cr Clr Drug Dosing 62.6 Est GFR ( Amer) 81.6 Est GFR (Non-Af Amer) 70.4 BUN/Creatinine Ratio 8.4 L Glucose 95 Calcium 9.0 Total Bilirubin AST ALT Alkaline Phosphatase Troponin I Total Protein Albumin Globulin Albumin/Globulin Ratio Urine Color Urine Appearance Urine pH Ur Specific [place] Urine Protein Urine Glucose (UA) Urine Ketones Urine Blood Urine Nitrite Urine Bilirubin Urine Urobilinogen Ur Leukocyte Esterase Urine RBC Urine WBC Ur Epithelial Cells Urine Bacteria Medications Administered Home Medications albuterol sulfate 2 puff INHALATION Q6H PRN 12/05/18 [History Confirmed 07/16/19] ranitidine HCl [Zantac] 150 mg PO DAILY PRN 12/05/18 [History Confirmed 07/16/19] pantoprazole 40 mg tablet,delayed release 40 mg PO QAM #90 tab 03/23/19 [Rx Confirmed 07/16/19] citalopram 20 mg tablet 20 mg PO DAILY #90 tab 05/30/19 [Rx Confirmed 07/16/19] clindamycin phosphate 1 % topical solution 1 appln TOPICAL DAILY #1 ml 06/15/19 [History Confirmed 07/16/19] acetaminophen [Tylenol Extra Strength] 500 mg PO Q6H PRN 07/16/19 [History Confirmed 07/16/19] alprazolam 0.25 mg PO BID PRN 07/16/19 [History Confirmed 07/16/19] clindamycin HCl 150 mg PO TID 07/16/19 [History Confirmed 07/16/19] diphenhydramine HCl 50 mg PO Q8H PRN 07/16/19 [History Confirmed 07/16/19] hydrocodone-acetaminophen 1 tab PO Q6H PRN 07/16/19 [History Confirmed 07/16/19] Active Medications Acetaminophen (Tylenol) 650 mg PO Q4H PRN PRN Reason: Pain or Fever Stop: 08/15/19 22:39 Last Admin: 07/17/19 09:12 Dose: 650 mg Documented by: Albuterol (Ventolin Hfa) 2 puffs INH Q6H PRN PRN Reason: Wheezing Stop: 08/15/19 22:39 Citalopram Hydrobromide (Celexa) 20 mg PO DAILY TARIK Stop: 08/16/19 08:59 Last Admin: 07/17/19 09:05 Dose: 20 mg Documented by: Clindamycin HCl (Cleocin) 150 mg PO TID TARIK Stop: 07/27/19 08:59 Last Admin: 07/17/19 09:05 Dose: 150 mg Documented by: Diphenhydramine HCl (Benadryl Capsule) 50 mg PO Q4H PRN PRN Reason: Itching Stop: 08/15/19 22:39 Last Admin: 07/17/19 00:25 Dose: 50 mg Documented by: Heparin Sodium/Dextrose (Heparin Sodium/Dextrose) 25,000 units in 500 mls @ 0.02 mls/hr IV .Q24H TARIK; Protocol Stop: 08/15/19 20:14 Last Titration: 07/17/19 08:04 Dose: 0 units/hr, 0 mls/hr Documented by: Ioversol (Optiray 320 125ml) 118 ml IV ONCE PRN PRN Reason: Interaction Checking Stop: 07/20/19 19:17 Last Admin: 07/16/19 19:20 Dose: 118 ml Documented by: Miscellaneous (Order Awaiting Action) 1 ea N/A QS [facility] Stop: 08/16/19 07:59 Last Admin: 07/17/19 09:12 Dose: Not Given Documented by: Pantoprazole Sodium (Protonix) 40 mg PO QAM [facility] Stop: 08/16/19 08:59 Last Admin: 07/17/19 09:05 Dose: 40 mg Documented by: Polyethylene Glycol (Miralax Powder Packet) 17 gm PO DAILY PRN PRN Reason: Constipation Stop: 08/15/19 22:39 Potassium Chloride (Klor-Con M20) 20 meq PO BID TARIK Stop: 07/18/19 09:01 Last Admin: 07/17/19 09:04 Dose: 20 meq Documented by: Ranitidine HCl (Zantac) 150 mg PO DAILY PRN PRN Reason: Acid Reflux Stop: 08/15/19 22:39 Resident Activity Tracking Resident Involvement: Resident Care Provided Care Provided: Adult Hospital Medicine (1) Pulmonary embolism Acute cor pulmonale presence: unspecified Chronicity: unspecified Pulmonary embolism type: unspecified Qualified Code(s): I26.99 - Other pulmonary embolism without acute cor pulmonale
--- NOTE | 2019-07-17 10:46 | Consultation ---
Date of Consultation July 17, 2019 Assessment & Plan (1) Pulmonary embolism: Asked to provide anticoagulation management input for this 64 year old woman with a history of breast cancer, s/p bilateral mastectomy 5 days ago at [facility]. Patient was doing well at home until 07/16 when she developed chest tightness and shortness of breath. Given her strong family history of PE, she knew to present to the ED where she was diagnosed with multiple PE within the segmental artery of the RUL and multiple subsegmental arteries of the RUL. She was started on IV heparin, weight based with bolus. During the evening, the drain fluid changed from clear serosanguinous to blood tinged serosanguinous. Her IV heparin was d/c and opinion sought. Discussed with patient and care team at 09:30. The drainage in her CANDACE drains was blood tinged but not grossly blood. I recommended resuming IV heparin OSMEL at normal weight based infusion. Target a therapeutic INR but at the lower to middle portion of the therapeutic range. I would avoid enoxaparin for now, given the longer half life. Consult her oncology team in [place] or Dr. Wong (who hasn't seen her yet) regarding choice of anticoagulation going forward, as it likely will be chronic. Given her weight and renal function, I believe she would be a good candidate for a newer agent (I prefer Apixaban) which should be begun as soon as we are sure the bloody character of the drain fluid is stable and not worsening. Apixaban can be given 10 mg BID x 7 days then 5 mg BID with the first dose to be given then the IV heparin immediately d/c. We will gladly follow in our clinic should this be required. Thank you for re ferring your patient. Present on Admission?: Yes History of Present Illness Attending Physician: Yuridia Ferreira MD Allergies Allergy/AdvReac Type Severity Reaction Status Date / Time cephalexin Allergy Intermediate HIVES Verified 07/16/19 18:57 Sulfa (Sulfonamide Allergy Intermediate HIVES Verified 07/16/19 18:58 Antibiotics) adhesive tape Allergy REDNESS OF Unverified 07/16/19 18:57 SKIN,RASH Home Medications Home Medications Medication Instructions Recorded Confirmed Type albuterol sulfate 2 puff INHALATION Q6H PRN 12/05/18 07/16/19 History ranitidine HCl [Zantac] 150 mg PO DAILY PRN 12/05/18 07/16/19 History pantoprazole 40 mg tablet,delayed 40 mg PO QAM #90 tab 03/23/19 07/16/19 Rx release citalopram 20 mg tablet 20 mg PO DAILY #90 tab 05/30/19 07/16/19 Rx clindamycin phosphate 1 % topical 1 appln TOPICAL DAILY #1 ml 06/15/19 07/16/19 History solution acetaminophen [Tylenol Extra 500 mg PO Q6H PRN 07/16/19 07/16/19 History Strength] alprazolam 0.25 mg PO BID PRN 07/16/19 07/16/19 History clindamycin HCl 150 mg PO TID 07/16/19 07/16/19 History diphenhydramine HCl 50 mg PO Q8H PRN 07/16/19 07/16/19 History hydrocodone-acetaminophen 1 tab PO Q6H PRN 07/16/19 07/16/19 History Patient History Medical History Anxiety SITUATIONAL GERD (gastroesophageal reflux disease) Hiatal hernia MVP (mitral valve prolapse) HX-NO PREMED WITH DENTAL Pneumonia 05/2018 PVC (premature ventricular contraction) ON OCC Surgical History History of colonoscopy History of dilation and curettage History of esophagogastroduodenoscopy (EGD) History of hemorrhoidectomy History of tonsillectomy Hx of lumpectomy RIGHT PLUS RADIATION-12 YRS AGO Hx of lumpectomy LEFT NO RADIATION 2016 Family History (Updated 07/17/19 @ 10:47 by Tamika Barros MD, PhD) Sister Family history of diabetes mellitus Mother Family history of diabetes mellitus Hypertension Aunt Family history of diabetes mellitus Myocardial infarction acute Father Myocardial infarction acute Grandfather Cancer Brother Clotting disorder Daughter Pulmonary embolism Social History Preferred Language: Urdu Communication Ability: Effective 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 Beliefs That Will Affect Care: None marital status: Current Living Situation: Spouse current occupational status: retired 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 Other Information That Helps Us Care for You: No Feels Safe at Home: Yes Safety Concerns: Feels Safe At This Time Smoking Status: Never smoker Second Hand Exposure: No ; Hx Alcohol Use: Yes Alcohol type: wine and hard liquor Hx Substance Use: No Results & Data Vital Signs (Past 12 Hours) Vital Signs Temp Pulse Pulse Resp BP Pulse Ox 07/17/19 07:26 37.1 C 83 16 136/84 90 07/17/19 07:12 77 07/17/19 04:05 36.8 C 78 20 124/73 94 07/16/19 23:31 99 H Laboratory Results aPTT on admission 21.7sec 07/16 @1710; 70.9sec at 0248 07/17 (1) Pulmonary embolism Acute cor pulmonale presence: unspecified Chronicity: unspecified Pulmonary embolism type: unspecified Qualified Code(s): I26.99 - Other pulmonary embolism without acute cor pulmonale
--- NOTE | 2019-07-17 13:13 | Surgery Consultation ---
Date of Consultation July 17, 2019 Assessment & Plan (1) S/P breast reconstruction, bilateral: Postop day 4 status post bilateral nipple sparing mastectomy with direct implant reconstruction performed at another institution. Drain output appears appropriate for this stage in the postoperative course. Anticipate that there may be some epidermolysis of the right nipple areolar complex, but suspect it will remain viable. I do not anticipate any contraindications or preferences in regard to oral anticoagulation as there will not be any need for implant exchange or tissue expansion. Rachana has reached out to the patient's plastic surgeon's office to notify them that patient is here and to inquire as to whether there are any preferences for anticoagulants. She is awaiting a call back. The entire patient encounter was performed by me, portions of the chart documentation were completed by Rachana Fonseca PA-C, acting as a scribe. (2) Pulmonary embolism: Acute cor pulmonale presence: unspecified Chronicity: unspecified Pulmonary embolism type: unspecified Qualified Code(s): I26.99 - Other pulmonary embolism without acute cor pulmonale History of Present Illness Attending Physician: Joanne is being seen today for consultation regarding recent bilateral mastectomy and reconstruction, which was performed as nipple sparing and direct to implant.. She reports her surgery was performed at the [facility] 4 days ago. She was discharged POD#1, but she returned to their ER POD#2 for contact dermatitis reaction. She traveled back home and went to the ED last night with concerns of CP, SOB. She has been diagnosed with bilateral PE and started on Heparin drip. Patient states she had [id number], pre-pectoral reconstruction. She reports no pain from her surgery other than her allergic reaction. She feels the right breast drains have had an increase in bloody drainage. Allergies Allergy/AdvReac Type Severity Reaction Status Date / Time cephalexin Allergy Intermediate HIVES Verified 07/16/19 18:57 Sulfa (Sulfonamide Allergy Intermediate HIVES Verified 07/16/19 18:58 Antibiotics) adhesive tape Allergy REDNESS OF Unverified 07/16/19 18:57 SKIN,RASH Home Medications Home Medications Medication Instructions Recorded Confirmed Type albuterol sulfate 2 puff INHALATION Q6H PRN 12/05/18 07/16/19 History ranitidine HCl [Zantac] 150 mg PO DAILY PRN 12/05/18 07/16/19 History pantoprazole 40 mg tablet,delayed 40 mg PO QAM #90 tab 03/23/19 07/16/19 Rx release citalopram 20 mg tablet 20 mg PO DAILY #90 tab 05/30/19 07/16/19 Rx clindamycin phosphate 1 % topical 1 appln TOPICAL DAILY #1 ml 06/15/19 07/16/19 History solution acetaminophen [Tylenol Extra 500 mg PO Q6H PRN 07/16/19 07/16/19 History Strength] alprazolam 0.25 mg PO BID PRN 07/16/19 07/16/19 History clindamycin HCl 150 mg PO TID 07/16/19 07/16/19 History diphenhydramine HCl 50 mg PO Q8H PRN 07/16/19 07/16/19 History hydrocodone-acetaminophen 1 tab PO Q6H PRN 07/16/19 07/16/19 History Patient History Medical History Anxiety SITUATIONAL GERD (gastroesophageal reflux disease) Hiatal hernia MVP (mitral valve prolapse) HX-NO PREMED WITH DENTAL Pneumonia 05/2018 PVC (premature ventricular contraction) ON OCC Surgical History History of colonoscopy History of dilation and curettage History of esophagogastroduodenoscopy (EGD) History of hemorrhoidectomy History of tonsillectomy Hx of lumpectomy RIGHT PLUS RADIATION-12 YRS AGO Hx of lumpectomy LEFT NO RADIATION 2016 Family History Sister Family history of diabetes mellitus Mother Family history of diabetes mellitus Hypertension Aunt Family history of diabetes mellitus Myocardial infarction acute Father Myocardial infarction acute Grandfather Cancer Brother Clotting disorder Daughter Pulmonary embolism Social History Preferred Language: Yoruba Communication Ability: Effective 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 Beliefs That Will Affect Care: None marital status: Current Living Situation: Spouse current occupational status: retired 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 Some ecchymosis of the right breast, no overt hematomas. There is evidence of contact dermatitis between the breasts. Patient's right nipple appears venous congested with some skin changes in the inferior, medial portion of the right breast. There is cap refill noted in the nipple and surrounding skin. right drain with serosanguineous output, no lita bloody output. left drain with serous output Results & Data Vital Signs (Past 12 Hours) Vital Signs Temp Pulse Pulse Resp BP Pulse Ox 07/17/19 11:30 36.6 C 81 16 126/81 93 07/17/19 07:26 37.1 C 83 16 136/84 90 07/17/19 07:12 77 07/17/19 04:05 36.8 C 78 20 124/73 94 PG Care Time/CCT Total # of Minutes Spent Total Time Spent with Patient: Total time spent is greater than 50% in coordi nation of care (as documented) at patient's floor/unit and/or counseling patient:
[2019-07-17 16:17] LABS: Hematocrit (blood only) 35.7 % (37-47); Hemoglobin 12.2 g/dL (12.0-16.0)
[2019-07-17] MEDS ORDERED: Nursing to Pharmacy Communication ONE (19:23)
[2019-07-17 22:05] LABS: Partial Thromboplastin Ratio 1.3
[2019-07-17] MEDS ORDERED: HEPARIN IV BOLUS 3,000 UNITS in SYRINGE 0 ML IV ONE (23:00)
[2019-07-17] MEDS: HEPARIN SODIUM/DEXTROSE 25,000 UNITS/500 ML BAG IV SCH (23:29)
[2019-07-18 05:48] LABS: Basophils # (auto) 0.02 K/uL (0-0.2); Basophils % (auto) 0.3 %; Eosinophils # (auto) 0.37 K/uL (0-0.5); Eosinophils % (auto) 5.7 %; Hematocrit (blood only) 37.8 % (37-47); Hemoglobin 12.5 g/dL (12.0-16.0); Immature Granulocytes # (auto) 0.02 K/uL (0.00-0.02); Immature Granulocytes % (auto) 0.3 %; Lymphocytes # (auto) 1.81 K/uL (1.2-3.4); Lymphocytes % (auto) 28.1 %; Mean Corpuscular Hemoglobin 29.1 pg (25-34); Mean Corpuscular Hgb Conc 33.1 g/dL (32-36); Mean Corpuscular Volume 87.9 fL (80-100); Mean Platelet Volume 9.7 fL (7.4-10.4); Monocytes % (auto) 9.3 %; Neutrophils # (auto) 3.63 K/uL (1.4-6.5); Neutrophils % (auto) 56.3 %; Platelet Count 269 K/uL (130-400); RDW Coefficient of Variation 14.9 % (11.5-14.5); RDW Standard Deviation 47.8 fL (36.4-46.3); White Blood Count 6.45 K/uL (4.8-10.8)
[2019-07-18 06:09] LABS: Partial Thromboplastin Ratio 1.8
[2019-07-18 06:16] LABS: BUN Creatinine Ratio 14.2 (10-20); Calcium 9.4 mg/dl (8.5-10.1); Creatinine Clr Calc Pharmacy 65.7 ml/min; Est GFR (African American) 86.4; Est GFR (Non-African American) 74.6; Potassium 4.3 mmol/L (3.5-5.1)
[2019-07-18 06:23] LABS: Partial Thromboplastin Time 49.8 Seconds (21.0-31.0)
[2019-07-18] MEDS: CLINDAMYCIN HCL 150 MG CAP PO SCH ×3 (07:52→20:43)
[2019-07-18] MEDS: CITALOPRAM 20 MG TAB PO SCH (07:52)
[2019-07-18] MEDS: POTASSIUM CHLORIDE 20 MEQ TABCR PO SCH (07:52)
[2019-07-18] MEDS: PANTOprazole 40 MG TAB PO SCH (07:53)
--- NOTE | 2019-07-18 08:32 | Surgery Progress Note ---
Date of Service July 18, 2019 Assessment & Plan (1) Pulmonary embolism: She seems to be doing well heparin stable expected drainage We will need to determine what her long-term anticoagulation will be It is doubtful she will be able to go to [place] this week and therefore Will need a plan for her drain removal here or in [place] Results & Data Vital Signs (Past 12 Hours) Vital Signs Temp Pulse Resp BP Pulse Ox 07/18/19 07:56 36.6 C 75 20 111/71 93 07/18/19 03:10 36.7 C 82 16 118/79 95 07/17/19 23:05 37.4 C 78 16 106/71 95 PG Care Time/CCT Total # of Minutes Spent Total Time Spent with Patient: Total time spent is greater than 50% in coordination of care (as documented) at patient's floor/unit and/or counseling patient: (1) Pulmonary embolism Acute cor pulmonale presence: unspecified Chronicity: unspecified Pulmonary embolism type: unspecified Qualified Code(s): I26.99 - Other pulmonary embolism without acute cor pulmonale
--- NOTE | 2019-07-18 10:46 | Hospitalist Progress Note ---
Date of Service July 18, 2019 Assessment & Plan (1) Pulmonary embolism: Ms. Yung is a 64-year-old female s/p bilateral mastectomy with reconstruction on 07/12/19 who presents with pulmonary emboli in her RUL. Pulmonary embolism CTA shows segmental and subsegmental right upper lobe PEs without evidence of right heart strain Currently hemodynamically stable -after communication with her plastic surgeon at [facility], transitioned to Eliquis 10mg BID for the first 7 days of treatment. Heparin drip discontinued. 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 -States she has "atypical cells" in left breast so opted for bilateral mastectomy. Had surgery performed at [facility] by Dr. Levin and Dr. Urrutia 07/12/19 -Has not had followup appointments yet so pt unsure of next steps (?chemo, ?radiation therapy) Continue clindamycin 150 mg 3 times daily per her primary surgical team Continue to follow CANDACE drain output as above Pain control with acetaminophen as needed. Patient was on hydrocodoneAPAP prior to admission, but feels that APAP alone will be sufficient for her pain -appreciate recs of general and plastic surgery, hematology. Dermatitis Patient has a history of tape allergy, has a dermatitis reaction in the distal sternum and under the right breast. May use small amounts of hydrocortisone cream but DO NOT use any topical corticosteroid within 5 inches of a surgical incision Continue Benadryl 50 mg every 8 hours as needed History of GERD Continue Protonix 40 mg daily Continue ranitidine 150 mg daily as needed History of anxiety Continue citalopram 20 mg daily continue holding her SENIOR EXAMINER alprazolam at this time, feels the Benadryl will help sufficiently for her sleep Diet: Regular CODE STATUS: Full code DVT prophylaxis: On Eliquis Disposition: home after continued monitoring. Supervising Physician Co-Signing Physician Notes Resident Physician Supervision Note: I independently interviewed and examined the patient and verified the espana history and physical, reviewed labs and image studies, discussed the case with the resident Dr. Resendiz and agree with the findings and care plan. Subjective Ms. Yung was seen this AM. States she feels much better in terms of her SOB. Denies any changes to the color of fluid in her CANDACE drains. Denies any headache, changes to vision, dizziness, slurred speech, weakness anywhere. Denies chest pain, palpitations, abd pain, N/V, dysuria, hematuria, diarrhea or constipation. Review of Systems Review of Systems: All systems reviewed & are unremarkable except as noted in HPI & below Physical Exam Physical Exam: General: Alert, oriented. No acute distress Skin:Maculopapular rash noted under breasts bilaterally. Some noted erythema to right areolar area. Psych: Appropriate mood and affect Neuro: No gross deficits HEENT: NC/AT, PERRLA, EOMI, oropharynx moist. Chest: Nontender to palpation. Chest drains present. CV: RRR, Normal s1, s2. No murmurs appreciated Resp: Breath sounds clear bilaterally, no increased effort of breathing. No crackles/rhonchi/rales. Abdomen: Soft, nontender, nondistended. No guarding. No organomegaly appreciated. Extremities: No edema in lower extremities bilaterally. Results & Data Vital Signs (Past 12 Hours) Vital Signs Temp Pulse Pulse Resp BP Pulse Ox 07/18/19 10:23 94 H 07/18/19 07:56 36.6 C 75 20 111/71 93 07/18/19 03:10 36.7 C 82 16 118/79 95 07/17/19 23:05 37.4 C 78 16 106/71 95 Laboratory Results Laboratory Results - last 24 hr 07/17/19 07/17/19 07/18/19 15:43 21:30 05:32 WBC 6.45 RBC 4.30 Hgb 12.2 12.5 Hct 35.7 L 37.8 MCV 87.9 MCH 29.1 MCHC 33.1 RDW Std Deviation 47.8 H RDW Coeff of Richard 14.9 H Plt Count 269 MPV 9.7 Immature Gran % (Auto) 0.3 Neut % (Auto) 56.3 Lymph % (Auto) 28.1 [place] % (Auto) 9.3 Eos % (Auto) 5.7 Baso % (Auto) 0.3 Immature Gran # (Auto) 0.02 Neut # (Auto) 3.63 Lymph # (Auto) 1.81 [place] # (Auto) 0.60 H Eos # (Auto) 0.37 Baso # (Auto) 0.02 APTT 34.0 H PTT Ratio 1.3 Sodium Potassium Chloride Carbon Dioxide Anion Gap BUN Creatinine Est Cr Clr Drug Dosing Est GFR ( Amer) Est GFR (Non-Af Amer) BUN/Creatinine Ratio Glucose Calcium 07/18/19 07/18/19 05:32 05:32 WBC RBC Hgb Hct MCV MCH MCHC RDW Std Deviation RDW Coeff of Richard Plt Count MPV Immature Gran % (Auto) Neut % (Auto) Lymph % (Auto) [place] % (Auto) Eos % (Auto) Baso % (Auto) Immature Gran # (Auto) Neut # (Auto) Lymph # (Auto) [place] # (Auto) Eos # (Auto) Baso # (Auto) APTT 49.8 H* PTT Ratio 1.8 Sodium 138 Potassium 4.3 Chloride 105 Carbon Dioxide 29 Anion Gap 4.0 BUN 12 D Creatinine 0.82 Est Cr Clr Drug Dosing 65.7 Est GFR ( Amer) 86.4 Est GFR (Non-Af Amer) 74.6 BUN/Creatinine Ratio 14.2 Glucose 92 Calcium 9.4 Medications Administered Home Medications albuterol sulfate 2 puff INHALATION Q6H PRN 12/05/18 [History Confirmed 07/16/19] ranitidine HCl [Zantac] 150 mg PO DAILY PRN 12/05/18 [History Confirmed 07/16/19] pantoprazole 40 mg tablet,delayed release 40 mg PO QAM #90 tab 03/23/19 [Rx Confirmed 07/16/19] citalopram 20 mg tablet 20 mg PO DAILY #90 tab 05/30/19 [Rx Confirmed 07/16/19] clindamycin phosphate 1 % topical solution 1 appln TOPICAL DAILY #1 ml 06/15/19 [History Confirmed 07/16/19] acetaminophen [Tylenol Extra Strength] 500 mg PO Q6H PRN 07/16/19 [History Confirmed 07/16/19] alprazolam 0.25 mg PO BID PRN 07/16/19 [History Confirmed 07/16/19] clindamycin HCl 150 mg PO TID 07/16/19 [History Confirmed 07/16/19] diphenhydramine HCl 50 mg PO Q8H PRN 07/16/19 [History Confirmed 07/16/19] hydrocodone-acetaminophen 1 tab PO Q6H PRN 07/16/19 [History Confirmed 07/16/19] Active Medications Acetaminophen (Tylenol) 650 mg PO Q4H PRN PRN Reason: Pain or Fever Stop: 08/15/19 22:39 Last Admin: 07/17/19 21:16 Dose: 650 mg Documented by: Albuterol (Ventolin Hfa) 2 puffs INH Q6H PRN PRN Reason: Wheezing Stop: 08/15/19 22:39 Citalopram Hydrobromide (Celexa) 20 mg PO DAILY TARIK Stop: 08/16/19 08:59 Last Admin: 07/18/19 07:52 Dose: 20 mg Documented by: Clindamycin HCl (Cleocin) 150 mg PO TID TARIK Stop: 07/27/19 08:59 Last Admin: 07/18/19 07:52 Dose: 150 mg Documented by: Diphenhydramine HCl (Benadryl Capsule) 50 mg PO Q4H PRN PRN Reason: Itching Stop: 08/15/19 22:39 Last Admin: 07/18/19 06:04 Dose: 50 mg Documented by: Heparin Sodium/Dextrose (Heparin Sodium/Dextrose) 25,000 units in 500 mls @ 17 mls/hr IV .Q24H TARIK; Protocol Stop: 08/15/19 20:14 Last Titration: 07/18/19 07:02 Dose: 850 units/hr, 17 mls/hr Documented by: Ioversol (Optiray 320 125ml) 118 ml IV ONCE PRN PRN Reason: Interaction Checking Stop: 07/20/19 19:17 Last Admin: 07/16/19 19:20 Dose: 118 ml Documented by: Miscellaneous (Order Awaiting Action) 1 ea N/A QS [facility] Stop: 08/16/19 07:59 Last Admin: 07/18/19 07:06 Dose: Not Given Documented by: Pantoprazole Sodium (Protonix) 40 mg PO QAM TARIK Stop: 08/16/19 08:59 Last Admin: 07/18/19 07:53 Dose: 40 mg Documented by: Polyethylene Glycol (Miralax Powder Packet) 17 gm PO DAILY PRN PRN Reason: Constipation Stop: 08/15/19 22:39 Ranitidine HCl (Zantac) 150 mg PO DAILY PRN PRN Reason: Acid Reflux Stop: 08/15/19 22:39 Resident Activity Tracking Resident Involvement: Resident Care Provided Care Provided: Adult Hospital Medicine (1) Pulmonary embolism Acute cor pulmonale presence: unspecified Chronicity: unspecified Pulmonary embolism type: unspecified Qualified Code(s): I26.99 - Other pulmonary embolism without acute cor pulmonale
[2019-07-18] MEDS: ACETAMINOPHEN 325 MG TAB PO PRN ×3 (11:54→23:36)
[2019-07-18] MEDS: APIXABAN 5 MG TABLET PO SCH ×2 (16:17→22:34)
[2019-07-19 06:47] LABS: Basophils # (auto) 0.02 K/uL (0-0.2); Basophils % (auto) 0.3 %; Eosinophils # (auto) 0.29 K/uL (0-0.5); Eosinophils % (auto) 4.5 %; Hematocrit (blood only) 38.6 % (37-47); Hemoglobin 13.2 g/dL (12.0-16.0); Immature Granulocytes # (auto) 0.01 K/uL (0.00-0.02); Immature Granulocytes % (auto) 0.2 %; Lymphocytes # (auto) 1.55 K/uL (1.2-3.4); Mean Corpuscular Hemoglobin 29.9 pg (25-34); Mean Corpuscular Hgb Conc 34.2 g/dL (32-36); Mean Corpuscular Volume 87.3 fL (80-100); Mean Platelet Volume 9.4 fL (7.4-10.4); Monocytes % (auto) 9.3 %; Neutrophils # (auto) 3.98 K/uL (1.4-6.5); Neutrophils % (auto) 61.7 %; Platelet Count 278 K/uL (130-400); RDW Coefficient of Variation 14.7 % (11.5-14.5); RDW Standard Deviation 47.2 fL (36.4-46.3); Red Blood Count 4.42 M/uL (4.2-5.4); White Blood Count 6.45 K/uL (4.8-10.8)
[2019-07-19 07:17] LABS: BUN Creatinine Ratio 16.1 (10-20); Calcium 9.7 mg/dl (8.5-10.1); Creatinine Clr Calc Pharmacy 58.7 ml/min; Est GFR (African American) 75.2; Est GFR (Non-African American) 64.9; Potassium 4.1 mmol/L (3.5-5.1)
[2019-07-19] MEDS: PANTOprazole 40 MG TAB PO SCH (08:27)
[2019-07-19] MEDS: CITALOPRAM 20 MG TAB PO SCH (08:27)
[2019-07-19] MEDS: CLINDAMYCIN HCL 150 MG CAP PO SCH (08:27)
[2019-07-19] MEDS: APIXABAN 5 MG TABLET PO SCH (08:27)
[2019-07-19] MEDS: ACETAMINOPHEN 325 MG TAB PO PRN (08:32)
--- NOTE | 2019-07-19 10:35 | Discharge Summary ---
Date of Service July 19, 2019 Admission HPI Per Admitting Provider Joanne is a 64-year-old female with a past medical history of bilateral mastectomy with breast reconstruction 4 days ago who presents with less than 1 day of acute onset severe chest and throat tightness without associated chest pain, chest pressure, or pleuritic pain. Joanne reports around 4 PM today she developed severe chest tightness and a feeling of tightness in her throat. She denies difficulty breathing, but had a feeling of shortness of breath. Denies any chest pressure, chest pain, or pain radiating into her shoulder or jaw. She got a little lightheaded, but not dizzy. She did not experience palpitations. She was immediately concerned about a pulmonary embolism because she had a brother who of a PE, and her daughter has also had a PE in the past. 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 Levin and reconstruction was performed by Dr. Urrutia at the [facility]. She received 2 doses of postoperative 5000 units heparin and then was discharged home. She had a 5-hour drive home, which she stopped 3 times to walk. Her postoperative course has been going mostly well, however she has severe dermatitis from a tape allergy on the center of her chest and under her right breast. Her dermatitis is intensely itchy, but improved somewhat with hydrocortisone cream and Benadryl. She is careful not to use any hydrocortisone cream near her surgical incisions. She has 4 CANDACE drains present, 2 draining on the right and 2 on the left. Denies other symptoms, see ROS. Medical history: Anxiety, GERD, PVCs, mitral prolapse, breast cancer as noted above. Surgical history: Reviewed Social history: , lives with her . 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 No current or former tobacco use. No current or former substance use. Drinks alcohol 2-3 times a week 1-2 in a setting. Admission Exam Per Admitting Provider General: A&Ox3. NAD. Cooperative. Nontoxic. HEENT: Atraumatic, normocephalic. External ear anatomy normal. External nasal anatomy normal. Mucous membranes moist. No posterior pharynx erythema or exuda te. Uvula midline. Neck supple. No anterior/posterior cervical chain adenopathy. No clavicular adenopathy. Pulm: CTAB A&P. Trace expiratory wheeze in right lower lobe, otherwise no wheezes, -rales, -rhonchi. Symmetrical chest rise. No increase work of breathing. No respiratory distress. Cardiac: Tachycardic, -mrg. Radial pulses intact and symmetrical. PT pulses intact and symmetrical Abdominal: Nontender, nondistended, soft. BS present. Skin/thorax: Postsurgical mastectomy and breast reconstruction changes bilaterally. Breasts with bruising on the inferior aspects bilaterally. Surgical incisions clean, dry, well healing and without dehiscence or discharge. Distal sternum and infra right breast with pruritic, papular erythema which is mostly itchy but mildly tender on palpation. 2X CANDACE drains present on the right, 2X CANDACE drains present on the left all 4 draining serosanguineous fluid. Principal Diagnosis Pulmonary Emboli Discharge Exam General: Alert, oriented. No acute distress Skin:Maculopapular rash noted under breasts bilaterally. Some noted erythema to right areolar area. Psych: Appropriate mood and affect Neuro: No gross deficits HEENT: NC/AT, PERRLA, EOMI, oropharynx moist. Chest: Nontender to palpation. Chest drains present. CV: RRR, Normal s1, s2. No murmurs appreciated Resp: Breath sounds clear bilaterally, no increased effort of breathing. No crackles/rhonchi/rales. Abdomen: Soft, nontender, nondistended. No guarding. No organomegaly appreciated. Extremities: No edema in lower extremities bilaterally. Discharge Data Allergies Allergy/AdvReac Type Severity Reaction Status Date / Time cephalexin Allergy Intermediate HIVES Verified 07/16/19 18:57 Sulfa (Sulfonamide Allergy Intermediate HIVES Verified 07/16/19 18:58 Antibiotics) adhesive tape Allergy REDNESS OF Unverified 07/16/19 18:57 SKIN,RASH Consultations 07/16/19 20:06 ED Decision to Admit Stat 07/17/19 06:47 Consult General Surgery Routine 07/17/19 08:48 Consult Physician Routine 07/17/19 09:52 Consult Plastic Surgery Routine Ordered Studies 07/16/19 17:03 CT angio chest PE protocol Stat Hospital Course (1) Pulmonary embolism: Ms. Yung is a 64-year-old female s/p bilateral mastectomy with reconstruction on 07/12/19 who presented with pulmonary emboli in her RUL. Admitted on Jul 16 and discharged on Jul 19. Pulmonary embolism CTA shows segmental and subsegmental right upper lobe PEs without evidence of right heart strain Was hemodynamically stable throughout her stay and on discharge -after communication with her plastic surgeon at [facility], transitioned to Eliquis 10mg BID for the first 7 days of treatment. Heparin drip discontinued. -Discharged with 5 additional days of Eliquis 10mg, and 3 month supply of Eliquis 5mg. -Has followup scheduled with Dr. Wong (heme/onc) on Aug 02. 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 -States she has "atypical cells" in left breast so opted for bilateral mastectomy. Had surgery performed at [facility] by Dr. Levin and Dr. Urrutia 07/12/19 -Has not had followup appointments yet so pt unsure of next steps (?chemo, ?radiation therapy) Continued clindamycin 150 mg 3 times daily per her primary surgical team in [place] until she has her followup appointment. Additional prescription provided. Continued to follow CANDACE drain output as above. No acute changes on discharge. Pain control with acetaminophen as needed. -Patient was on hydrocodoneAPAP prior to admission, but feels that APAP alone will be sufficient for her pain -appreciate recs of general and plastic surgery, hematology. -Has followup after discharge with [facility] on Jul 23, 2019. Dermatitis Patient has a history of tape allergy, has a dermatitis reaction in the distal sternum and under the right breast. May use small amounts of hydrocortisone cream but DO NOT use any topical corticosteroid within 5 inches of a surgical incision Continued Benadryl 50 mg every 8 hours as needed and can continue on discharge. History of GERD Continue Protonix 40 mg daily Continue ranitidine 150 mg daily as needed History of anxiety Continue citalopram 20 mg daily continue her home alprazolam on discharge Total Time Total Time Spent Total Time Spent (In Minutes): See attending attestation Discharge Plan Discharge Items Patient Disposition: Home - Self-Care Reason For Visit: PE Discharge Diagnosis: Pulmonary embolism Activity: Per Instructions section Non-emergency contact: Primary Care Provider Call non-emergency contact if: your symptoms worsen, you have a fever, your wound has increased redness and your wound has increased drainage Follow-up/Referrals: Josie Peace MD [Primary Care Provider] - 07/25/19 9:30 am (A follow up appt. has been made for you with Dr. Peace on at 9:30am. Dow checking on Eliquis was done for you and it will be $126. for a three month supply. We have provided you with a 30 day free card.) Diet: Regular Addtl Attending Provider Instructions: Ms. Yung, you were admitted because you developed pulmonary emboli post- operatively. It also appears that there might be a genetic component. We started treatment with heparin and transitioned you to the medication Eliquis (Apixaban) 10mg twice daily for the first week, then 5mg twice daily after that for a total of at least 3-6 months of treatment.. Please take the Eliquis 10mg for an additional 5 days. Start by taking 1 pill tonight. Then take the Eliquis 5mg twice daily after that. Close-followup with your media services director/oncologist Dr. Wong is recommended to determine the exact length of treatment given your medical and family history. But it should be at least 3-6 months. Please continue taking the Clindamycin prescribed by your breast surgeons. They wanted you to continue it until you saw them on Monday 07/23. Please followup as discussed with your breast surgeons at the [facility] on Tuesday. Please followup with Dr. Wong as scheduled on Jul 30, 2019. Should your symptoms worsen, or you suddenly develop shortness of breath, increasing chest pain, palpitations once more, [facility]. It was truly a pleasure taking care of you during your stay here! Pending Studies at Discharge: No Stand-Alone Forms: My [facility], Smoking Cessation Medications and DC Order Prescriptions: New clindamycin HCl 150 mg Capsule 150 mg PO TID 7 Days Qty: 21 RF: 0 Eliquis 5 mg Tablet 10 mg PO BID 5 Days Qty: 21 RF: 0 Eliquis 5 mg tablet 5 mg PO BID 90 Days Qty: 180 RF: 0 Continued citalopram 20 mg tablet 20 mg PO DAILY Qty: 90 RF: 1 clindamycin phosphate 1 % solution 1 appln topical DAILY Qty: 1 RF: 0 pantoprazole 40 mg tablet,delayed release (DR/EC) 40 mg PO QAM Qty: 90 RF: 1 clindamycin HCl 150 mg capsule 150 mg PO TID RF: 0 hydrocodone-acetaminophen 5-325 mg tablet 1 tab PO Q6H PRN (Reason: Pain) RF: 0 acetaminophen [Tylenol Extra Strength] 500 mg Tablet 500 mg PO Q6H PRN (Reason: Fever Or Pain) RF: 0 alprazolam 0.5 mg tablet 0.25 mg PO BID PRN (Reason: anxiety) RF: 0 diphenhydramine HCl 25 mg Tablet 50 mg PO Q8H PRN (Reason: Allergy Symptoms) RF: 0 ranitidine HCl [Zantac] 150 mg Tablet 150 mg PO DAILY PRN (Reason: Acid Reflux) RF: 0 albuterol sulfate 90 mcg/actuation Hfa Aerosol Inhaler 2 puff INHALATION Q6H PRN (Reason: Wheezing) RF: 0 Discharge Orders: Discharge Order (Routine); Ordered 07/19/19 Ordered By: Jennifer Noonan/Other Patient Handouts: Apixaban Oral tablet Admission Data Admit Date/Time: 07/18/19 13:18 Attending Provider: Yuridia Ferreira Admit Provider: Katie Pastor Primary Care Provider: Josie Peace Other Providers: Katie Pastor ; Mika Santana ; Tamika Barros ; Evelia Daniels Other Interventions: Discharge Summary Assessment (RN) Last Done: 07/19/19 10:32 DC Date/Time DO NOT enter until pt leaves facility: 07/19/19 11:32 Supervising Physician Co-Signing Physician Notes Resident Physician Supervision Note: I independently interviewed and examined the patient and verified the espana history and physical, reviewed labs and image studies, discussed the case with the resident Dr. Resendiz and agree with the findings and care plan. Time spent in discharge 35 min Resident Activity Tracking Resident Involvement: Resident Care Provided Care Provided: Adult Hospital Medicine
== END 2019-07-19 11:32 | disposition home or self-care (01) | DRG 176 ==
LOC: 2N 16:45 → ED 16:45 → SUATTDRO 21:46 → 2N 22:36

== ENCOUNTER 2020-04-23 16:51 | Inpatient (IN) ==
[2020-04-23] MEDS ORDERED: VANCOMYCIN HCL 1,500 MG in SODIUM CHLORIDE 0.9% 500 ML IV ONE (18:45)
[2020-04-23] MEDS ORDERED: VANCOMYCIN CONSULT ACTIVE PRN ×2 (18:45→22:29)
[2020-04-23] MEDS ORDERED: AMPICILLIN/SULBACTAM SOD 3,000 MG in 0.9 % SODIUM CHLORIDE 100 ML IV STA (18:56)
[2020-04-23 19:09] LABS: Basophils # (auto) 0.02 K/uL (0-0.2); Basophils % (auto) 0.3 %; Eosinophils # (auto) 0.08 K/uL (0-0.5); Eosinophils % (auto) 1.2 %; Hemoglobin 13.4 g/dL (12.0-16.0); Lymphocytes # (auto) 1.59 K/uL (1.2-3.4); Lymphocytes % (auto) 23.1 %; Mean Corpuscular Hemoglobin 28.9 pg (25-34); Mean Corpuscular Hgb Conc 33.5 g/dL (32-36); Mean Corpuscular Volume 86.2 fL (80-100); Mean Platelet Volume 10.1 fL (7.4-10.4); Monocytes # (auto) 0.75 K/uL (0.11-0.59); Monocytes % (auto) 10.9 %; Neutrophils # (auto) 4.43 K/uL (1.4-6.5); Neutrophils % (auto) 64.5 %; Platelet Count 272 K/uL (130-400); RDW Coefficient of Variation 15.9 % (11.5-14.5); RDW Standard Deviation 50.7 fL (36.4-46.3); Red Blood Count 4.64 M/uL (4.2-5.4); White Blood Count 6.87 K/uL (4.8-10.8)
[2020-04-23 19:27] LABS: Alanine Aminotransferase 20 U/L (12-78); Aspartate Aminotransferase 17 U/L (15-37); BUN Creatinine Ratio 11.6 (10-20); Blood Urea Nitrogen 10 mg/dl (7-18); Calcium 9.5 mg/dl (8.5-10.1); Carbon Dioxide 30 mmol/L (21-32); Chloride 103 mmol/L (98-107); Est GFR (African American) 77.2; Est GFR (Non-African American) 66.6; Glucose 91 mg/dl (70-99); Potassium 3.6 mmol/L (3.5-5.1); Sodium 139 mmol/L (136-145)
[2020-04-23 19:29] LABS: Alkaline Phosphatase 61 U/L (45-117); Bilirubin,Total 0.8 mg/dl (0.2-1); Globulin 4.1 gm/dl (2.5-4.0); Total Protein 8.1 gm/dl (6.4-8.2)
--- NOTE | 2020-04-23 19:37 | Ultrasound Report ---
US breast RT limited CLINICAL HISTORY: r/o SQ abscess, cellulitis COMPARISON STUDY: Right breast ultrasound June 06, 2019. TECHNIQUE: Targeted sonography right breast was performed to evaluate for abscess. FINDINGS: Right breast implant is noted. Subcutaneous edema of the right breast is noted. No fluid co llection is identified. IMPRESSION: 1. No right breast abscess by sonography. 2. Right breast subcutaneous edema which may reflect cellulitis/mastitis. ACT 112: Negative or not required by law. Electronically signed by: Satish Henderson M.D. 04/23/2020 7:35 PM
--- NOTE | 2020-04-23 22:12 | History & Physical Report ---
Date of Service April 23, 2020 Assessment & Plan (1) Mastitis: 64yo C female with cellulitis/mastitis of right breast, implant in place. US negative for drainable fluid collection. She has history of DCIS of the right breast in 2004 s/p right partial mastectomy, XRT and Tamoxifen x 5 years. Found with mass in right breast on mammogram 05/2019, bx revealed invasive ductal carcinoma, grade 3, triple negative, s/p right nipple sparing mastectomy with implant and prophylactic left nipple sparing mastectomy with implant performed on 07/12/[address] [facility]. History of ischemic wound in the right breast in nipple areolar complex which was treated with antibiotics. History of cellulitis of left breast for which she was treated with IV and PO antibiotics in [place] -Admit to medical floor -Follow blood cultures -Vancomycin and Cefepime -[facility] ID consultation appreciated -Records from [facility] requested Present on Admission?: Yes (2) Renal cell carcinoma: Newly diagnosed RCC of right kidney. [place] [facility] was to have preoperative testing performed [place] [facility] [place] and surgery scheduled for April 29. Ideally we can complete necessary preoperative testing here so patient will be able to proceed with surgery next week. -Will attempt to contact Dr. Bhat tomorrow to discuss any testing Present on Admission?: Yes (3) Pulmonary embolism: Provoked PE in setting of malignancy, surgery. Currently on anticoagulation with Eliquis -Continue Eliquis 5mg po BID. Will need to hold this medication at least 48 hours prior to surgery Present on Admission?: Yes (4) GERD (gastroesophageal reflux disease): Chronic. -Continue Protonix 40mg po qdaily Present on Admission?: Yes (5) Anxiety: Chronic. -Continue Celexa 20mg po qPM -Continue Xanax PRN F/E/N - Heplock. Electrolytes WNL. Regular diet as tolerated Ppx - Continue Eliquis. Continue Protonix Code - Full Dispo -Admit to medical floor History of Present Illness Chief Complaint: cellulitis/mastitis of right breast Primary Care Provider: Radha Mukherjee DO Joanne Yung is a pleasant 64yo C female presenting with cellulitis of the right breast. She has a history of breast cancer s/p bilateral nipple sparing mastectomy with direct implant reconstruction performed at [facility] in June,. Patient was admitted to [facility] on 07/16/19 (POD #4) with a submassive PE. She was started on oral anticoagulation and discharged home in stable condition on 07/19/20. Patient reports an episode of cellulitis involving the left breast in August 2019 while she was in [place]. She reports being admitted to the [facility] in [place], [place] for 3 days for management with IV antibiotics. She was then discharged on Amoxicillin and Doxycycline for additional 2 week course. Patient reports feeling chills, fatigue and flushing appx 3 d ago. She then developed axillary pain and redness of the skin surrounding her right nipple. Her right breast and axilla have become more painful and swollen since then. She was seen by her PCP two days ago and started on Augmentin. She presents to the ER this evening because the redness has increased despite antibiotic therapy. She denies fevers, chills, nausea, vomiting, chest pain, SOB. Patient was recently diagnosed with biopsy proven RCC involving the right kidney. She was referred to Dr. Traci Bhat at [facility]. She was to see her tomorrow for preoperative testing (including a pre-op Covid test) in preparation for surgery scheduled on April 29 ER Course: Ampicillin/Sulbactam 3gm, Vancomycin 1500mG Allergies Allergy/AdvReac Type Severity Reaction Status Date / Time cephalexin Allergy Intermediate HIVES Verified 04/23/20 22:16 Sulfa (Sulfonamide Allergy Intermediate HIVES Verified 04/23/20 22:16 Antibiotics) adhesive tape Allergy REDNESS OF Unverified 04/23/20 22:17 SKIN,RASH Home Medications Home Medications Medication Instructions Recorded Confirmed Type albuterol sulfate 2 puff INHALATION Q6H PRN 12/05/18 04/23/20 History clindamycin phosphate 1 % topical 1 appln TOPICAL DAILY #1 ml 06/15/19 04/23/20 History solution acetaminophen [Tylenol Extra 500 mg PO Q6H PRN 07/16/19 04/23/20 History Strength] famotidine 20 mg tablet 20 mg PO DAILY PRN tab 02/25/20 04/23/20 History pantoprazole 40 mg tablet,delayed 40 mg PO QAM tab 02/25/20 04/23/20 History release alprazolam 0.5 mg tablet 0.25 mg PO BID PRN #10 tab 02/27/20 04/23/20 Rx Eliquis 5 mg PO BID 04/23/20 04/23/20 History ascorbic [id number] 1 ea PO DAILY 04/23/20 04/23/20 History [Emergen-C] biotin 0 mg PO DAILY 04/23/20 04/23/20 History cholecalciferol (vitamin D3) 50 mcg PO BID 04/23/20 04/23/20 History citalopram 20 mg PO QPM 04/23/20 04/23/20 History [id number] 1 cap PO DAILY 04/23/20 04/23/20 History [Krill Oil ([place] 3 and 6)] Past Med/Surg History Medical History (Updated 04/23/20 @ 22:31 by Katie Pastor DO) Hiatal hernia History of basal cell carcinoma Milia MVP (mitral valve prolapse) HX-NO PREMED WITH DENTAL Pneumonia 05/2018 Renal cell carcinoma Sebaceous hyperplasia Surgical History (Updated 12/19/19 @ 13:41 by Josie Peace MD) History of colonoscopy History of dilation and curettage History of esophagogastroduodenoscopy (EGD) History of hemorrhoidectomy History of tonsillectomy Hx of lumpectomy RIGHT PLUS RADIATION-12 YRS AGO Hx of lumpectomy LEFT NO RADIATION 2017 S/P breast reconstruction, bilateral Family History (Updated 07/25/19 @ 09:34 by JAISON Meraz) Sister Family history of diabetes mellitus Mother Family history of diabetes mellitus Hypertension Aunt Family history of diabetes mellitus Myocardial infarction acute Father Myocardial infarction acute Grandfather Cancer Brother Clotting disorder Daughter Pulmonary embolism Denies family history of Ovarian cancer Prostate cancer Breast cancer Colorectal cancer Social History Smoking Status: Never smoker Second Hand Exposure: No; Hx Alcohol Use: Yes Alcohol type: wine and hard liquor Hx Substance Use: No Preferred Language: Senegalese Communication Ability: Effective Dental Lab Technician Required: No Beliefs That Will Affect Care: None marital status: Current Living Situation: Spouse current occupational status: retired 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 Feels Safe at Home: Yes Review of Systems Review of Systems: All systems reviewed & are unremarkable except as noted in HPI & below Physical Exam Physical Exam: General: patient resting comfortably, NAD, non-toxic in appearance, AA&O x 4 Skin: warm, dry, intact, redness of right breast as below HEENT: NC/AT, PERRL, EOMI, anicteric sclera, conjunctiva without injection, external ear normal to inspection and nontender, nares patent, moist mucus membranes, dentition intact, no oropharyngeal lesions, neck supple, trachea midline, no LAD, no thyromegaly, no JVD Heart: +S1/S2, regular, no m/r/g Right breast swollen, firm, well demarcated area of erythema involving inferior portion of right breast, axilla, nipple. No fluctuance or discernible fluid collection, no discharge Lungs: equal air entry bilaterally, no rales/rhonchi/wheezes Abd: +BS, soft, NT/ND, no masses/organomegaly/ascites Ext: warm, 2+ pulses in UE/LE bilaterally, no clubbing/cyanosis or edema Neuro: nonfocal, patient AA&O x 4, speech intact, no facial droop, moving all extremities on command with equal strength 5/5 Results & Data Results & Data ([facility]) Vital Signs (Past 12 Hours) Vital Signs Temp Pulse Pulse Resp BP BP Pulse Ox 04/23/20 21:20 72 18 130/76 98 04/23/20 19:34 76 20 146/73 H 98 04/23/20 16:58 37.2 C 96 H 20 152/73 H 96 Laboratory Results Lab Results 04/23/20 04/23/20 04/23/20 Range/Units 18:58 18:58 18:58 WBC 6.87 (4.8-10.8) K/uL RBC 4.64 (4.2-5.4) M/uL Hgb 13.4 (12.0-16.0) g/dL Hct 40.0 (37-47) % MCV 86.2 (80-100) fL MCH 28.9 (25-34) pg MCHC 33.5 (32-36) g/dL RDW Std Deviation 50.7 H (36.4-46.3) fL RDW Coeff of Richard 15.9 H (11.5-14.5) % Plt Count 272 (130-400) K/uL MPV 10.1 (7.4-10.4) fL Immature Gran % (Auto) 0.0 % Neut % (Auto) 64.5 % Lymph % (Auto) 23.1 % [place] % (Auto) 10.9 % Eos % (Auto) 1.2 % Baso % (Auto) 0.3 % Neut # (Auto) 4.43 (1.4-6.5) K/uL Lymph # (Auto) 1.59 (1.2-3.4) K/uL [place] # (Auto) 0.75 H (0.11-0.59) K/uL Eos # (Auto) 0.08 (0-0.5) K/uL Baso # (Auto) 0.02 (0-0.2) K/uL Immature Gran # (Auto) 0.00 (0.00-0.02) K/uL Sodium 139 (136-145) mmol/L Potassium 3.6 (3.5-5.1) mmol/L Chloride 103 (98-107) mmol/L Carbon Dioxide 30 (21-32) mmol/L Anion Gap 6.0 (3-11) BUN 10 (7-18) mg/dl Creatinine 0.90 (0.6-1.2) mg/dl Est Cr Clr Drug Dosing Not Reportable Est GFR ( Amer) 77.2 Est GFR (Non-Af Amer) 66.6 BUN/Creatinine Ratio 11.6 (10-20) Glucose 91 (70-99) mg/dl Lactate 1.1 (0.4-2.0) mmol/L Calcium 9.5 (8.5-10.1) mg/dl Total Bilirubin 0.8 (0.2-1) mg/dl AST 17 (15-37) U/L ALT 20 (12-78) U/L Alkaline Phosphatase 61 (45-117) U/L Total Protein 8.1 (6.4-8.2) gm/dl Albumin 4.0 (3.4-5.0) gm/dl Globulin 4.1 H (2.5-4.0) gm/dl Albumin/Globulin Ratio 1.0 (0.9-2) Diagnostic Findings US breast RT limited CLINICAL HISTORY: r/o SQ abscess, cellulitis COMPARISON STUDY: Right breast ultrasound June 06, 2019. TECHNIQUE: Targeted sonography right breast was performed to evaluate for abscess. FINDINGS: Right breast implant is noted. Subcutaneous edema of the right breast is noted. No fluid collection is identified. IMPRESSION: 1. No right breast abscess by sonography. 2. Right breast subcutaneous edema which may reflect cellulitis/mastitis. ACT 112: Negative or not required by law. Code Status & VTE Plan Code Status FULL VTE Prophylaxis Plan VTE Prophylaxis will be ordered: Yes PG Care Time/CCT Total # of Minutes Spent Total Time Spent with Patient: Total time spent is greater than 50% in coordination of care (as documented) at patient's floor/unit and/or counseling patient: Coding Level of Care Code 12968 Initial Inpt Care Lvl 3 Diagnoses Mastitis N61.0 Renal cell carcinoma C64.1 Laterality: right Pulmonary embolism I26.99 Acute cor pulmonale presence: unspecified Chronicity: unspecified Pulmonary embolism type: unspecified GERD (gastroesophageal reflux disease) K21.9 Esophagitis presence: esophagitis presence not specified Anxiety F41.9 (1) Pulmonary embolism Acute cor pulmonale presence: unspecified Chronicity: unspecified Pulmonary embolism type: unspecified Qualified Code(s): I26.99 - Other pulmonary embolism without acute cor pulmonale (2) GERD (gastroesophageal reflux disease) Esophagitis presence: esophagitis presence not specified Qualified Code(s): K21.9 - Gastro-esophageal reflux disease without esophagitis (3) Renal cell carcinoma Laterality: right Qualified Code(s): C64.1 - Malignant neoplasm of right kidney, except renal pelvis
[2020-04-23] MEDS ORDERED: ACETAMINOPHEN 325 MG TAB PO PRN (22:29)
[2020-04-23] MEDS ORDERED: ACETAMINOPHEN 500 MG TAB PO PRN (22:29)
[2020-04-23] MEDS ORDERED: VANCOMYCIN HCL 1,000 MG in SODIUM CHLORIDE 0.9% 250 ML IV SCH (22:29)
[2020-04-23] MEDS ORDERED: ALPRAZolam 0.25 MG TABLET PO PRN (22:29)
[2020-04-23] MEDS ORDERED: PATIENT'S HEIGHT AND/OR WEIGHT NEEDED SCH (22:45)
[2020-04-23] MEDS ORDERED: CEFEPIME 2,000 MG in SYRINGE 7.5 ML IV SCH (23:00)
[2020-04-24] MEDS: AMPICILLIN/SULBACTAM SOD 3,000 MG in 0.9 % SODIUM CHLORIDE 100 ML IV SCH ×4 (01:40→20:46)
[2020-04-24 07:38] LABS: Basophils # (auto) 0.02 K/uL (0-0.2); Basophils % (auto) 0.4 %; Eosinophils # (auto) 0.11 K/uL (0-0.5); Eosinophils % (auto) 2.4 %; Hematocrit (blood only) 36.5 % (37-47); Lymphocytes # (auto) 1.15 K/uL (1.2-3.4); Lymphocytes % (auto) 25.2 %; Mean Corpuscular Hemoglobin 27.8 pg (25-34); Mean Corpuscular Hgb Conc 32.9 g/dL (32-36); Mean Corpuscular Volume 84.7 fL (80-100); Mean Platelet Volume 9.7 fL (7.4-10.4); Monocytes # (auto) 0.63 K/uL (0.11-0.59); Monocytes % (auto) 13.8 %; Neutrophils # (auto) 2.66 K/uL (1.4-6.5); Neutrophils % (auto) 58.2 %; Platelet Count 229 K/uL (130-400); RDW Standard Deviation 49.4 fL (36.4-46.3); Red Blood Count 4.31 M/uL (4.2-5.4); White Blood Count 4.57 K/uL (4.8-10.8)
[2020-04-24 08:04] LABS: BUN Creatinine Ratio 10.8 (10-20); Calcium 8.9 mg/dl (8.5-10.1); Creatinine Clr Calc Pharmacy 73.7 ml/min; Est GFR (African American) 97.8; Est GFR (Non-African American) 84.4; Potassium 3.7 mmol/L (3.5-5.1)
--- NOTE | 2020-04-24 08:32 | Pharmacy Report ---
Pharmacy Abx Dose Short Note - Date of Service April 24, 2020 - Assessment & Plan Assessment * 64 year old F admitted for R breast mastitis. Per provider's note: no fluctuance, no discharge, no drainable collection. Patient received Rx for Augmentin on 04/22 per refill records. Patient admitted to [facility] 04/23. * Patient does have a h/o breast CA and is s/p mastectomies and breast implants * She does have a prior h/o L breast cellulitis * Patient is currently ordered VANCOMYCIN IV (Pharmacy consulted to dose) as well as UNASYN * Currently afebrile, non-hypotensive, occasional episodes of mild tachycardia. No leukocytosis noted on labs. No growth noted in BLCXs at this time. * [facility] ID consulted. Plan Vancomycin * Patient received 1500mg loading dose (~20mg/kg) * Patient meets criteria for vancomycin AUC dosing nomogram. AUC/MICHAEL is the preferred PK/PD target for vancomycin. * Initial dosinmg IV Q 12 hrs * Target AUC/MICHAEL = 400-600 * AUC guided dosing is effective and associated with decreased risk of nephrotoxicity * Trough level will be assessed w/ 4th dose to screen for achievement of AUC/MICHAEL goals. Pharmacy will continue to follow and will adjust dose/frequency as necessary. Thank you.
[2020-04-24] MEDS: VANCOMYCIN HCL 1,000 MG in SODIUM CHLORIDE 0.9% 250 ML IV SCH ×2 (08:40→20:48)
[2020-04-24] MEDS: PANTOprazole 40 MG TAB PO SCH (08:40)
[2020-04-24] MEDS: APIXABAN 5 MG TABLET PO SCH ×2 (08:40→20:46)
--- NOTE | 2020-04-24 11:01 | Hospitalist Progress Note ---
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 Recent hx left sided cellulitis/mastitis treated with IV antibiotics after failure of outpatient regimen. Admitted from ER last night after 2 days of worsening swelling and redness of right breast with concern for mastitis/cellulitis. Right breast Cellulitis - US R breast negative for fluid collection, abscess - WBC normal, afebrile - started on Vanc, cefepime in ED. Transitioned to Vanc/Unasyn on admission. - marked improvement of redness since admission. - blood cultures pending Renal Cell Carcinoma - scheduled for removal of renal mass/possible nephrectomy with [facility] Urologist Dr. Traci Vences - at this time patient wants to delay surgery ~ 1-2 weeks so she can recover from this infection prior to proceeding with surgery - attempted to call Dr. Vences's office today ([phone]); unable to reach nurse coordinator or physician. Left voicemail to call back at hospital extension/page. Hx Provoked PE - in setting of anticoagulation after surgery/while having malignancy - continue apixaban 5 mg bid Anxiety - continue citalopram DVT ppx: apixaban FEN/GI: regular diet Code Status: Full Code Dispo: Med/Surg (2) Renal cell carcinoma: (3) DCIS (ductal carcinoma in situ) of breast: (4) Pulmonary embolism: Admission and Anticipated Discharge Date Admission Date: April 23, 2020 Supervising Physician Co-Signing Physician Notes Resident Physician Supervision Note: I independently interviewed and examined the patient and verified the espana history and physical, reviewed labs and image studies, discussed the case with the resident Dr. Bosch and agree with the findings and care plan. Subjective symptomatically improved from admission last night. still feels like right breast is swollen, but overlying redness has improved. Still feels no pain/is chronically numb over affected area. No complaints of fever or chills. Review of Systems Constitutional: no fever, no chills, no body aches and no fatigue Respiratory: no cough and no dyspnea Cardiovascular: no chest pain, no dyspnea and no edema Gastrointestinal: no abdominal pain, no nausea, no vomiting, no constipation and no diarrhea/loose stools Genitourinary: no dysuria and no urinary frequency Integumentary: + breast skin changes and + breast swelling; no breast pain and no nipple discharge Physical Exam Constitutional: WD/WN, vitals as above Respiratory: normal respiratory effort, lungs clear to auscultation Chest (Breasts): Breast: no breast mass and no breast tenderness Additional Comments: cellulitic redness across R mid-breast spreading to axillary region. Decreased from border drawn on 04/23. Nontender, no axillary lymph nodes palpated, mild pectoral muscle tenderness. Results & Data Results & Data ([facility]) Vital Signs (Past 12 Hours) Vital Signs Temp Pulse Resp BP Pulse Ox 04/24/20 08:05 36.8 C 108 H 18 137/72 96 04/23/20 23:19 37 C 77 18 145/76 H 95 Laboratory Results WBC 4.57 K/uL (4.8-10.8) L 04/24/20 07:10 RBC 4.31 M/uL (4.2-5.4) 04/24/20 07:10 Hgb 12.0 g/dL (12.0-16.0) 04/24/20 07:10 Hct 36.5 % (37-47) L 04/24/20 07:10 MCV 84.7 fL (80-100) 04/24/20 07:10 MCH 27.8 pg (25-34) 04/24/20 07:10 MCHC 32.9 g/dL (32-36) 04/24/20 07:10 RDW Std Deviation 49.4 fL (36.4-46.3) H 04/24/20 07:10 RDW Coeff of Richard 16.0 % (11.5-14.5) H 04/24/20 07:10 Plt Count 229 K/uL (130-400) 04/24/20 07:10 MPV 9.7 fL (7.4-10.4) 04/24/20 07:10 Immature Gran % (Auto) 0.0 % 04/24/20 07:10 Neut % (Auto) 58.2 % 04/24/20 07:10 Lymph % (Auto) 25.2 % 04/24/20 07:10 Bates % (Auto) 13.8 % 04/24/20 07:10 Eos % (Auto) 2.4 % 04/24/20 07:10 Baso % (Auto) 0.4 % 04/24/20 07:10 Neut # (Auto) 2.66 K/uL (1.4-6.5) 04/24/20 07:10 Lymph # (Auto) 1.15 K/uL (1.2-3.4) L 04/24/20 07:10 Bates # (Auto) 0.63 K/uL (0.11-0.59) H 04/24/20 07:10 Eos # (Auto) 0.11 K/uL (0-0.5) 04/24/20 07:10 Baso # (Auto) 0.02 K/uL (0-0.2) 04/24/20 07:10 Immature Gran # (Auto) 0.00 K/uL (0.00-0.02) 04/24/20 07:10 Sodium 140 mmol/L (136-145) 04/24/20 07:10 Potassium 3.7 mmol/L (3.5-5.1) 04/24/20 07:10 Chloride 107 mmol/L (98-107) 04/24/20 07:10 Carbon Dioxide 29 mmol/L (21-32) 04/24/20 07:10 Anion Gap 4.0 (3-11) 04/24/20 07:10 BUN 8 mg/dl (7-18) 04/24/20 07:10 Creatinine 0.74 mg/dl (0.6-1.2) 04/24/20 07:10 Est Cr Clr Drug Dosing 73.7 ml/min 04/24/20 07:10 Est GFR ( Amer) 97.8 04/24/20 07:10 Est GFR (Non-Af Amer) 84.4 04/24/20 07:10 BUN/Creatinine Ratio 10.8 (10-20) 04/24/20 07:10 Glucose 89 mg/dl (70-99) 04/24/20 07:10 Lactate 1.1 mmol/L (0.4-2.0) 04/23/20 18:58 Calcium 8.9 mg/dl (8.5-10.1) 04/24/20 07:10 Total Bilirubin 0.8 mg/dl (0.2-1) 04/23/20 18:58 AST 17 U/L (15-37) 04/23/20 18:58 ALT 20 U/L (12-78) 04/23/20 18:58 Alkaline Phosphatase 61 U/L (45-117) 04/23/20 18:58 Total Protein 8.1 gm/dl (6.4-8.2) 04/23/20 18:58 Albumin 4.0 gm/dl (3.4-5.0) 04/23/20 18:58 Globulin 4.1 gm/dl (2.5-4.0) H 04/23/20 18:58 Albumin/Globulin Ratio 1.0 (0.9-2) 04/23/20 18:58 Resident Activity Tracking Resident Involvement: Resident Care Provided Care Provided: Adult Hospital Medicine (1) Renal cell carcinoma Laterality: right Qualified Code(s): C64.1 - Malignant neoplasm of right kidney, except renal pelvis (2) Pulmonary embolism Acute cor pulmonale presence: unspecified Chronicity: unspecified Pulmonary embolism type: unspecified Qualified Code(s): I26.99 - Other pulmonary embolism without acute cor pulmonale
[2020-04-24] MEDS: CITALOPRAM 20 MG TAB PO SCH (20:46)
[2020-04-25] MEDS: AMPICILLIN/SULBACTAM SOD 3,000 MG in 0.9 % SODIUM CHLORIDE 100 ML IV SCH ×3 (02:49→14:15)
[2020-04-25 07:18] LABS: Creatinine Clr Calc Pharmacy 73.7 ml/min; Est GFR (African American) 97.8; Est GFR (Non-African American) 84.4
[2020-04-25] MEDS: PANTOprazole 40 MG TAB PO SCH (08:25)
[2020-04-25] MEDS: APIXABAN 5 MG TABLET PO SCH ×2 (08:25→20:50)
[2020-04-25] MEDS: VANCOMYCIN HCL 1,000 MG in SODIUM CHLORIDE 0.9% 250 ML IV SCH ×2 (08:26→20:46)
--- NOTE | 2020-04-25 09:55 | Hospitalist Progress Note ---
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 Recent hx left sided cellulitis/mastitis treated with IV antibiotics after failure of outpatient regimen. Admitted from ER last night after 2 days of worsening swelling and redness of right breast with concern for mastitis/cellulitis. Right breast Cellulitis - US R breast negative for fluid collection, abscess - WBC normal, afebrile - Vanc/Unasyn; awaiting recommendations of Ana ID. Patient said they mentioned Vanc 1-2 more days and going home on doxy/augmentin. - marked improvement of redness since admission. - blood cultures negative at 24 hours - Cr normal, Vanc dosing per pharmacy Renal Cell Carcinoma - scheduled for removal of renal mass/possible nephrectomy with [facility] Urologist Dr. Traci Vences - at this time patient wants to delay surgery ~ 1-2 weeks so she can recover from this infection prior to proceeding with surgery - Follows with Dr. Vences's office ([phone]); Hx Provoked PE - in setting of anticoagulation after surgery/while having malignancy - continue apixaban 5 mg bid Anxiety - continue citalopram DVT ppx: apixaban FEN/GI: regular diet Code Status: Full Code Dispo: Med/Surg Admission and Anticipated Discharge Date Admission Date: April 23, 2020 Supervising Physician Co-Signing Physician Notes Resident Physician Supervision Note: I independently interviewed and examined the patient and verified the espana history and physical, reviewed labs and image studies, discussed the case with the resident Dr. Bosch and agree with the findings and care plan. Subjective Feels like redness and swelling is improved today. muscle pain is now gone. Overall feels well. Review of Systems Constitutional: no fever, no chills and no fatigue Integumentary: + breast skin changes and + breast swelling (improving; "softer"); no nipple discharge Physical Exam Skin: Cellulitis improved, more pink than red today. Within drawn margins. lateral margin of breast more supple, less firm compared to yesterday. Results & Data Results & Data ([facility]) Vital Signs (Past 12 Hours) Vital Signs Temp Pulse Resp BP Pulse Ox 04/25/20 07:23 36.7 C 74 18 117/75 95 04/24/20 23:37 36.6 C 69 20 110/72 93 Laboratory Results WBC 4.57 K/uL (4.8-10.8) L 04/24/20 07:10 RBC 4.31 M/uL (4.2-5.4) 04/24/20 07:10 Hgb 12.0 g/dL (12.0-16.0) 04/24/20 07:10 Hct 36.5 % (37-47) L 04/24/20 07:10 MCV 84.7 fL (80-100) 04/24/20 07:10 MCH 27.8 pg (25-34) 04/24/20 07:10 MCHC 32.9 g/dL (32-36) 04/24/20 07:10 RDW Std Deviation 49.4 fL (36.4-46.3) H 04/24/20 07:10 RDW Coeff of Richard 16.0 % (11.5-14.5) H 04/24/20 07:10 Plt Count 229 K/uL (130-400) 04/24/20 07:10 MPV 9.7 fL (7.4-10.4) 04/24/20 07:10 Immature Gran % (Auto) 0.0 % 04/24/20 07:10 Neut % (Auto) 58.2 % 04/24/20 07:10 Lymph % (Auto) 25.2 % 04/24/20 07:10 [place] % (Auto) 13.8 % 04/24/20 07:10 Eos % (Auto) 2.4 % 04/24/20 07:10 Baso % (Auto) 0.4 % 04/24/20 07:10 Neut # (Auto) 2.66 K/uL (1.4-6.5) 04/24/20 07:10 Lymph # (Auto) 1.15 K/uL (1.2-3.4) L 04/24/20 07:10 [place] # (Auto) 0.63 K/uL (0.11-0.59) H 04/24/20 07:10 Eos # (Auto) 0.11 K/uL (0-0.5) 04/24/20 07:10 Baso # (Auto) 0.02 K/uL (0-0.2) 04/24/20 07:10 Immature Gran # (Auto) 0.00 K/uL (0.00-0.02) 04/24/20 07:10 Sodium 140 mmol/L (136-145) 04/24/20 07:10 Potassium 3.7 mmol/L (3.5-5.1) 04/24/20 07:10 Chloride 107 mmol/L (98-107) 04/24/20 07:10 Carbon Dioxide 29 mmol/L (21-32) 04/24/20 07:10 Anion Gap 4.0 (3-11) 04/24/20 07:10 BUN 8 mg/dl (7-18) 04/24/20 07:10 Creatinine 0.74 mg/dl (0.6-1.2) 04/25/20 06:12 Est Cr Clr Drug Dosing 73.7 ml/min 04/25/20 06:12 Est GFR ( Amer) 97.8 04/25/20 06:12 Est GFR (Non-Af Amer) 84.4 04/25/20 06:12 BUN/Creatinine Ratio 10.8 (10-20) 04/24/20 07:10 Glucose 89 mg/dl (70-99) 04/24/20 07:10 Lactate 1.1 mmol/L (0.4-2.0) 04/23/20 18:58 Calcium 8.9 mg/dl (8.5-10.1) 04/24/20 07:10 Total Bilirubin 0.8 mg/dl (0.2-1) 04/23/20 18:58 AST 17 U/L (15-37) 04/23/20 18:58 ALT 20 U/L (12-78) 04/23/20 18:58 Alkaline Phosphatase 61 U/L (45-117) 04/23/20 18:58 Total Protein 8.1 gm/dl (6.4-8.2) 04/23/20 18:58 Albumin 4.0 gm/dl (3.4-5.0) 04/23/20 18:58 Globulin 4.1 gm/dl (2.5-4.0) H 04/23/20 18:58 Albumin/Globulin Ratio 1.0 (0.9-2) 04/23/20 18:58 Resident Activity Tracking Resident Involvement: Resident Care Provided Care Provided: Adult [facility]
--- NOTE | 2020-04-25 14:32 | Emergency Department Note ---
History of Present Illness General Chief complaint: Breast Pain/Problems Stated complaint: REF'D BY , REDNESS AND TENDER R BREAST Time Seen by Provider: 04/23/20 18:21 Source: patient and RN notes reviewed Mode of arrival: ambulatory Limitations: no limitations History of Present Illness Provider complaint: R breast red and swollen Maximum Pain Intensity: 0 This pt is a 64 yo female who presents to the ED with c/o R breast pain and swelling. Pt states she has a h/o breast CA and had bilateral mastectomy with implant reconstruction in May 2019. Pt was seen by her PCP several days ago and placed on keflex but the symptoms have not improved. She denies fevers but c/o axillary discomfort. Pt contacted her plastic surgeon and was referred for IV antibiotics. Of note the pt had cellutlitis of the L breast several months ago and was hospitalized. Pt was also dx with a RCC and is scheduled to have preop testing tomorrow at [facility]. Pt denies fevers, CP, SOB, abd, v/d. Home Medications Home Medications Medication Instructions Recorded Confirmed Type albuterol sulfate 2 puff INHALATION Q6H PRN 12/05/18 04/23/20 History clindamycin phosphate 1 % topical 1 appln TOPICAL DAILY #1 ml 06/15/19 04/23/20 History solution acetaminophen [Tylenol Extra 500 mg PO Q6H PRN 07/16/19 04/23/20 History Strength] famotidine 20 mg tablet 20 mg PO DAILY PRN tab 02/25/20 04/23/20 History pantoprazole 40 mg tablet,delayed 40 mg PO QAM tab 02/25/20 04/23/20 History release alprazolam 0.5 mg tablet 0.25 mg PO BID PRN #10 tab 02/27/20 04/23/20 Rx Eliquis 5 mg PO BID 04/23/20 04/23/20 History ascorbic [id number] 1 ea PO DAILY 04/23/20 04/23/20 History [Emergen-C] biotin 0 mg PO DAILY 04/23/20 04/23/20 History cholecalciferol (vitamin D3) 50 mcg PO BID 04/23/20 04/23/20 History citalopram 20 mg PO QPM 04/23/20 04/23/20 History [id number] 1 cap PO DAILY 04/23/20 04/23/20 History [Krill Oil (Benicia 3 and 6)] Allergies Allergy/AdvReac Type Severity Reaction Status Date / Time cephalexin Allergy Intermediate HIVES Verified 04/23/20 22:16 Sulfa (Sulfonamide Allergy Intermediate HIVES Verified 04/23/20 22:16 Antibiotics) adhesive tape Allergy REDNESS OF Unverified 04/23/20 22:17 SKIN,RASH Past Med/Surg History Medical History Hiatal hernia History of basal cell carcinoma Milia MVP (mitral valve prolapse) HX-NO PREMED WITH DENTAL Pneumonia 05/2018 Renal cell carcinoma Sebaceous hyperplasia Surgical History History of colonoscopy History of dilation and curettage History of esophagogastroduodenoscopy (EGD) History of hemorrhoidectomy History of tonsillectomy Hx of lumpectomy RIGHT PLUS RADIATION-12 YRS AGO Hx of lumpectomy LEFT NO RADIATION 2017 S/P breast reconstruction, bilateral Family History Sister Family history of diabetes mellitus Mother Family history of diabetes mellitus Hypertension Aunt Family history of diabetes mellitus Myocardial infarction acute Father Myocardial infarction acute Grandfather Cancer Brother Clotting disorder Daughter Pulmonary embolism Denies family history of Ovarian cancer Prostate cancer Breast cancer Colorectal cancer Social History Smoking Status: Never smoker Second Hand Exposure: No; Hx Alcohol Use: Yes Alcohol type: wine Hx Substance Use: No Preferred Language: Chinese Communication Ability: Effective Post Office Manager Required: No Beliefs That Will Affect Care: None marital status: Current Living Situation: Spouse Current Living Situation Comment: Lives at home w/ husbad current occupational status: retired 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 and A total of 10 systems reviewed and were otherwise negative Physical Exam Vital signs reviewed. General: Well-appearing 64 yo female, in no significant distress. HEENT: No scleral icterus, PERRLA, neck supple. Atraumatic. Cardiovascular: Regular rate and rhythm, no extra sounds. Pulmonary: Clear to auscultation bilaterally, normal work of breathing. Abdomen: Soft, nontender, nondistended, positive bowel sounds. Musculoskeletal: Atraumatic, no peripheral edema. Neurologic: Patient awake alert and oriented x 3 Skin: Warm, dry, erythema and warmth to the right breast, surrounding the nipple with lateral >medial spread. No palpable axillary lymphadenopathy. No open lesion or drainage Course Administered Medications Apixaban (Apixaban 5 Mg Tablet) 5 mg PO BID TARIK Stop: 05/24/20 08:59 Last Admin: 04/25/20 08:25 Dose: 5 mg Documented by: [id number] Admin: 04/24/20 20:46 Dose: 5 mg Documented by: [id number] Admin: 04/24/20 08:40 Dose: 5 mg Documented by: [id number] Citalopram Hydrobromide (Citalopram 20 Mg Tab) 20 mg PO QPM TARIK Stop: 05/24/20 20:59 Last Admin: 04/24/20 20:46 Dose: 20 mg Documented by: [id number] Vancomycin HCl 1,000 mg/ (Sodium Chloride) 270 mls @ 125 mls/hr IV Q12H TARIK; Protocol Stop: 05/01/20 07:59 Last Infusion: 04/25/20 11:01 Dose: 0 mls/hr Documented by: [id number] Admin: 04/25/20 08:26 Dose: 125 mls/hr Documented by: [id number] Infusion: 04/24/20 23:48 Dose: 0 mls/hr Documented by: [id number] Admin: 04/24/20 20:48 Dose: 125 mls/hr Documented by: [id number] Infusion: 04/24/20 10:57 Dose: 0 mls/hr Documented by: [id number] Admin: 04/24/20 08:40 Dose: 125 mls/hr Documented by: [id number] Pantoprazole Sodium (Pantoprazole 40 Mg Tab) 40 mg PO QAM TARIK Stop: 05/24/20 08:59 Last Admin: 04/25/20 08:25 Dose: 40 mg Documented by: [id number] Admin: 04/24/20 08:40 Dose: 40 mg Documented by: [id number] Discontinued Medications Vancomycin HCl 1,500 mg/ (Sodium Chloride) 530 mls @ 200 mls/hr IV NOW ONE Stop: 04/23/20 21:23 Last Infusion: 04/23/20 23:36 Dose: 0 mls/hr Documented by: [id number] Admin: 04/23/20 20:21 Dose: 200 mls/hr Documented by: [id number] Ampicillin Sodium/Sulbactam Sodium 3,000 mg/ Sodium Chloride 108 mls @ 200 mls/hr IV NOW STA; Protocol Stop: 04/23/20 19:28 Last Infusion: 04/23/20 20:21 Dose: 0 mls/hr Documented by: [id number] Admin: 04/23/20 19:33 Dose: 200 mls/hr Documented by: [id number] Cefepime HCl 2,000 mg/ Syringe 20 mls @ 5.5 mls/min IV Q8H TARIK; Protocol Stop: 04/30/20 22:59 Last Admin: 04/23/20 23:39 Dose: Not Given Documented by: [id number] Ampicillin Sodium/Sulbactam Sodium 3,000 mg/ Sodium Chloride 108 mls @ 200 mls/hr IV Q6H TARIK; Protocol Stop: 05/01/20 01:59 Last Admin: 04/25/20 14:15 Dose: Not Given Documented by: [id number] Infusion: 04/25/20 09:08 Dose: 0 mls/hr Documented by: [id number] Admin: 04/25/20 08:26 Dose: 200 mls/hr Documented by: [id number] Infusion: 04/25/20 03:31 Dose: 0 mls/hr Documented by: [id number] Admin: 04/25/20 02:49 Dose: 200 mls/hr Documented by: [id number] Infusion: 04/24/20 21:34 Dose: 0 mls/hr Documented by: [id number] Admin: 04/24/20 20:46 Dose: 200 mls/hr Documented by: [id number] Infusion: 04/24/20 14:35 Dose: 0 mls/hr Documented by: [id number] Admin: 04/24/20 14:01 Dose: 200 mls/hr Documented by: [id number] Infusion: 04/24/20 10:02 Dose: 0 mls/hr Documented by: [id number] Admin: 04/24/20 08:40 Dose: 200 mls/hr Documented by: [id number] Infusion: 04/24/20 02:57 Dose: 0 mls/hr Documented by: [id number] Admin: 04/24/20 01:40 Dose: 200 mls/hr Documented by: [id number] Miscellaneous (Patient's Height And/Or Weight Needed) 1 ea N/A Q2H TARIK Stop: 05/23/20 22:44 Last Admin: 04/23/20 22:52 Dose: 1 ea Documented by: [id number] Medical Decision Making Differential Diagnosis Differential diagnosis: Etiologies such as cellulitis, implant infection, malignancy, abscess, MRSA infection, necrotizing fasciitis, dermatitis, drug eruption, as well as others were entertained. Medical Records Attestation: I reviewed the patient's medical records. Home Medications Current Medication List: was personally reviewed by me Laboratory Data Attestation: I reviewed the patient's lab results. Result diagrams: 04/24/20 07:10 04/25/20 06:12 Lab Results 04/23/20 04/23/20 04/23/20 Range/Units 18:58 18:58 18:58 WBC 6.87 (4.8-10.8) K/uL RBC 4.64 (4.2-5.4) M/uL Hgb 13.4 (12.0-16.0) g/dL Hct 40.0 (37-47) % MCV 86.2 (80-100) fL MCH 28.9 (25-34) pg MCHC 33.5 (32-36) g/dL RDW Std Deviation 50.7 H (36.4-46.3) fL RDW Coeff of Richard 15.9 H (11.5-14.5) % Plt Count 272 (130-400) K/uL MPV 10.1 (7.4-10.4) fL Immature Gran % (Auto) 0.0 % Neut % (Auto) 64.5 % Lymph % (Auto) 23.1 % [place] % (Auto) 10.9 % Eos % (Auto) 1.2 % Baso % (Auto) 0.3 % Neut # (Auto) 4.43 (1.4-6.5) K/uL Lymph # (Auto) 1.59 (1.2-3.4) K/uL [place]urry # (Auto) 0.75 H (0.11-0.59) K/uL Eos # (Auto) 0.08 (0-0.5) K/uL Baso # (Auto) 0.02 (0-0.2) K/uL Immature Gran # (Auto) 0.00 (0.00-0.02) K/uL Sodium 139 (136-145) mmol/L Potassium 3.6 (3.5-5.1) mmol/L Chloride 103 (98-107) mmol/L Carbon Dioxide 30 (21-32) mmol/L Anion Gap 6.0 (3-11) BUN 10 (7-18) mg/dl Creatinine 0.90 (0.6-1.2) mg/dl Est Cr Clr Drug Dosing Not Reportable Est GFR ( Amer) 77.2 Est GFR (Non-Af Amer) 66.6 BUN/Creatinine Ratio 11.6 (10-20) Glucose 91 (70-99) mg/dl Lactate 1.1 (0.4-2.0) mmol/L Calcium 9.5 (8.5-10.1) mg/dl Total Bilirubin 0.8 (0.2-1) mg/dl AST 17 (15-37) U/L ALT 20 (12-78) U/L Alkaline Phosphatase 61 (45-117) U/L Total Protein 8.1 (6.4-8.2) gm/dl Albumin 4.0 (3.4-5.0) gm/dl Globulin 4.1 H (2.5-4.0) gm/dl Albumin/Globulin Ratio 1.0 (0.9-2) Imaging Data Radiologist's Impression: US breast RT limited CLINICAL HISTORY: r/o SQ abscess, cellulitis COMPARISON STUDY: Right breast ultrasound June 06, 2019. TECHNIQUE: Targeted sonography right breast was performed to evaluate for abscess. FINDINGS: Right breast implant is noted. Subcutaneous edema of the right breast is noted. No fluid collection is identified. IMPRESSION: 1. No right breast abscess by sonography. 2. Right breast subcutaneous edema which may reflect cellulitis/mastitis. ACT 112: Negative or not required by law. Electronically signed by: Satish Henderson M.D. 04/23/2020 7:35 PM Dictated: 04/23/201933 Blood Pressure Blood Pressure Findings: Normal blood pressure Blood Pressure Disposition: did not require urgent referral MDM Narrative This pt was evaluated and appeared to be in no distress. IV access was obtained and lab work was drawn. Blood cultures were obtained and the pt was started on IV vancomycin and ceftriaxone. Lab work reveals a normal WBC and normal lactate. US of the breast reveals no abscess. Due to failed outpatient treatment with oral keflex and implants, pt was d/w the hospitalist service for further management. Pt is aware of the plan and agrees. Impression & Plan Acute mastitis of right breast, Breast implant status Discharge Plan Visit Data Chief Complaint: Breast Pain/Problems Stated Complaint: REF'D BY DR, REDNESS AND TENDER R BREAST ED Provider: Leanne Rdz Discharge Problem: Acute mastitis of right breast, Breast implant status Patient Disposition: Admitted As Inpatient Discharge Instructions Interventions: ED Discharge Assessment Last Done: 04/23/20 22:04
[2020-04-25] MEDS ORDERED: VANCOMYCIN TROUGH ONE (15:30)
[2020-04-25] MEDS: CITALOPRAM 20 MG TAB PO SCH (20:50)
[2020-04-25] MEDS ORDERED: ACETAMINOPHEN 325 MG TAB ONE (23:30)
[2020-04-26 07:05] LABS: Creatinine Clr Calc Pharmacy 75.7 ml/min; Est GFR (African American) 101.1; Est GFR (Non-African American) 87.3
[2020-04-26] MEDS: VANCOMYCIN HCL 1,000 MG in SODIUM CHLORIDE 0.9% 250 ML IV SCH (08:46)
[2020-04-26] MEDS: PANTOprazole 40 MG TAB PO SCH (08:48)
[2020-04-26] MEDS: APIXABAN 5 MG TABLET PO SCH ×2 (08:48→21:22)
--- NOTE | 2020-04-26 10:38 | Pharmacy Report ---
Pharmacy Abx Dose Short Note - Date of Service April 26, 2020 - Assessment & Plan Assessment 64 year old F receiving Vancomycin 1000 mg IV Q12h for treatment of mastitis. Day #4 of antimicrobial therapy. Vancomycin trough level was drawn 4.5 hours early yesterday since it was ordered too early by mistake on the pharmacy side. Trough level was 18.5 at 1530 yesterday, dose was due at 2000. Extrapolated trough calculated for 4.5 hours after the level drawn at 1530 shows true trough level is around 13.7 mcg/ml. Plan Vancomycin * Extrapolated true trough level is 13.7 mcg/ml (lab trough was obtained 4.5 hrs too early). * Above trough level is appropriate for Mastitis. Goal Vancomycin trough around 15 mcg/ml. * Continue dose of Vancomycin 1000 mg IV every 12 hours. * Re-check Vancomycin trough level tomorrow before dose at 0800 to confirm adequate dosing. Level ordered for 7:30 AM. Pharmacy will continue to follow and will adjust dose/frequency as necessary. Thank you.
--- NOTE | 2020-04-26 14:18 | Hospitalist Progress Note ---
Date of Service April 26, 2020 Assessment & Plan (1) Acute mastitis of right breast: 64 yo F w/ hx DCIS s/p nipple sparing right partial mastectomy and prophylactic left nipple sparing mastectomy s/p BL implant placement. Recent hx left sided cellulitis/mastitis treated with IV antibiotics after failure of outpatient regimen. Admitted from ER last night after 2 days of worsening swelling and redness of right breast with concern for mastitis/cellulitis. Right breast Cellulitis - US R breast negative for fluid collection, abscess - WBC normal, afebrile - Marked improvement of redness and swelling since admission, continued receding of redness from new lines placed the night prior. - Blood cultures NTD - Was on Vancomycin - with improvement. switch to oral abx - Start Doxycycline 100mg BID PO x 14 per [facility] ID, if symptoms do not improve would have to consider infection of implant - Follows with Dr. Donal Urrutia from [facility] who placed her implants in June ([phone]). Renal Cell Carcinoma - scheduled for removal of renal mass/possible nephrectomy with [facility] Urologist Dr. Traci Vences - at this time patient wants to delay surgery ~ 1-2 weeks so she can recover from this infection prior to proceeding with surgery - Follows with Dr. Vences's office ([phone]); Hx Provoked PE - in setting of anticoagulation after surgery/while having malignancy - continue apixaban 5 mg bid Anxiety - continue citalopram DVT ppx: apixaban FEN/GI: regular diet Code Status: Full Code Dispo: Med/Surg (2) Breast implant status: (3) Renal cell carcinoma: (4) Anxiety: Admission and Anticipated Discharge Date Admission Date: April 23, 2020 Supervising Physician Co-Signing Physician Notes Resident Physician Supervision Note: I independently interviewed and examined the patient and verified the espana history and physical, reviewed labs and image studies, discussed the case with the resident Dr. Lewis and agree with the findings and care plan. Subjective Patient evaluated while seated in chair this AM. Patient noting that last night she felt that her L breast may have worsened slightly and had the lines redrawn. Since then she feels that the redness has actually reduced, however, she still notes swelling and firmness of the L breast. She denies any pain as the area is numb. No other fever, chills, SOB, chest pain, abdominal pain, NVD. Review of Systems Constitutional: no fever, no chills, no body aches and no fatigue Respiratory: no cough and no dyspnea Cardiovascular: no chest pain, no dyspnea and no edema Gastrointestinal: no abdominal pain, no nausea, no vomiting, no constipation and no diarrhea/loose stools Genitourinary: no dysuria and no urinary frequency Integumentary: + breast skin changes and + breast swelling; no breast pain and no nipple discharge Physical Exam Constitutional: WD/WN, vitals as above Respiratory: normal respiratory effort, lungs clear to auscultation Cardiovascular: RRR, no murmur, no edema Chest (Breasts): Breast: + abnormal inspection of breast (L breast swelling with firmness noted on palpation. No nipple discharge ), + abnormal palpation of axilla (Slight swelling of R axillae ) and no breast tenderness Additional Comments: Mild erythema noted at the 4 o'clock position of the R breast, well within the old and new margin lines Results & Data Results & Data ([facility]) Vital Signs (Past 12 Hours) Vital Signs Temp Pulse Resp BP Pulse Ox 04/26/20 07:00 36.8 C 65 18 103/63 94 Resident Activity Tracking Resident Involvement: Resident Care Provided Care Provided: Adult Hospital Medicine (1) Renal cell carcinoma Laterality: right Qualified Code(s): C64.1 - Malignant neoplasm of right kidney, except renal pelvis
[2020-04-26] MEDS ORDERED: VANCOMYCIN HCL 1,500 MG in SODIUM CHLORIDE 0.9% 500 ML IV SCH (18:00)
[2020-04-26] MEDS: DOXYCYCLINE HYCLATE 100 MG CAP PO SCH (21:22)
[2020-04-26] MEDS: CITALOPRAM 20 MG TAB PO SCH (21:22)
[2020-04-27] MEDS ORDERED: VANCOMYCIN TROUGH ONE (07:30)
[2020-04-27 08:25] LABS: Est GFR (African American) 79.4; Est GFR (Non-African American) 68.5
[2020-04-27] MEDS: DOXYCYCLINE HYCLATE 100 MG CAP PO SCH (08:28)
[2020-04-27] MEDS: APIXABAN 5 MG TABLET PO SCH (08:28)
[2020-04-27] MEDS: PANTOprazole 40 MG TAB PO SCH (08:28)
--- NOTE | 2020-04-27 09:52 | Discharge Summary ---
Date of Service April 27, 2020 Admission HPI Per Admitting Provider Joanne Yung is a pleasant 64yo C female presenting with cellulitis of the right breast. She has a history of breast cancer s/p bilateral nipple sparing mastectomy with direct implant reconstruction performed at [facility] in June,. Patient was admitted to [facility] on 07/16/19 (POD #4) with a submassive PE. She was started on oral anticoagulation and discharged home in stable condition on 07/19/20. Patient reports an episode of cellulitis involving the left breast in August 2019 while she was in [place]. She reports being admitted to the [facility] in [place], [place] for 3 days for management with IV antibiotics. She was then discharged on Amoxicillin and Doxycycline for additional 2 week course. Patient reports feeling chills, fatigue and flushing appx 3 d ago. She then developed axillary pain and redness of the skin surrounding her right nipple. Her right breast and axilla have become more painful and swollen since then. She was seen by her PCP two days ago and started on Augmentin. She presents to the ER this evening because the redness has increased despite antibiotic therapy. She denies fevers, chills, nausea, vomiting, chest pain, SOB. Patient was recently diagnosed with biopsy proven RCC involving the right kidney. She was referred to Dr. Traci Bhat at [facility]. She was to see her tomorrow for preoperative testing (including a pre-op Covid test) in preparation for surgery scheduled on April 29 ER Course: Ampicillin/Sulbactam 3gm, Vancomycin 1500mG Admission Exam Per Admitting Provider General: patient resting comfortably, NAD, non-toxic in appearance, AA&O x 4 Skin: warm, dry, intact, redness of right breast as below HEENT: NC/AT, PERRL, EOMI, anicteric sclera, conjunctiva without injection, external ear normal to inspection and nontender, nares patent, moist mucus membranes, dentition intact, no oropharyngeal lesions, neck supple, trachea midline, no LAD, no thyromegaly, no JVD Heart: +S1/S2, regular, no m/r/g Right breast swollen, firm, well demarcated area of erythema involving inferior portion of right breast, axilla, nipple. No fluctuance or discernible fluid collection, no discharge Lungs: equal air entry bilaterally, no rales/rhonchi/wheezes Abd: +BS, soft, NT/ND, no masses/organomegaly/ascites Ext: warm, 2+ pulses in UE/LE bilaterally, no clubbing/cyanosis or edema Neuro: nonfocal, patient AA&O x 4, speech intact, no facial droop, moving all extremities on command with equal strength 5/5 Principal Diagnosis R Breast Cellulitis Discharge Exam Constitutional WD/WN, vitals as above Respiratory normal respiratory effort, lungs clear to auscultation Cardiovascular RRR, no murmur, no edema Chest (Breasts) Breast: + abnormal inspection of breast (R breast swelling with firmness noted on palpation, improved), + abnormal palpation of axilla (Slight swelling of R axillae ) and no breast tenderness Gastrointestinal (Abdomen) normal bowel sounds, soft, nontender, no hepatosplenomegaly Discharge Data Allergies Allergy/AdvReac Type Severity Reaction Status Date / Time cephalexin Allergy Intermediate HIVES Verified 04/23/20 22:16 Sulfa (Sulfonamide Allergy Intermediate HIVES Verified 04/23/20 22:16 Antibiotics) adhesive tape Allergy REDNESS OF Unverified 04/23/20 22:17 SKIN,RASH Consultations 04/23/20 21:20 ED Decision to Admit Stat 04/23/20 22:29 Consult Infectious Diseases Routine Ordered Studies 04/23/20 18:56 US breast RT limited Stat Hospital Course (1) Acute mastitis of right breast: 64 yo F w/ hx DCIS s/p nipple sparing right partial mastectomy and prophylactic left nipple sparing mastectomy s/p BL implant placement. Recent hx left sided cellulitis/mastitis treated with IV antibiotics after failure of outpatient regimen. Admitted from ER last night after 2 days of worsening swelling and redness of right breast with concern for mastitis/cellulitis. Right breast Cellulitis - US R breast negative for fluid collection, abscess - WBC normal, afebrile - Marked improvement of redness and swelling since admission - Blood cultures NTD - Was on Vancomycin - with improvement. switch to oral abx - Started Doxycycline 100mg BID PO x 14 per [facility] ID, if symptoms do not improve would have to consider infection of implant -Patient to continue Doxycycline outpatient for 13 more days, script sent to pharmacy. - Follows with Dr. Donal Urrutia from [facility] who placed her implants in June ([phone]). Renal Cell Carcinoma - scheduled for removal of renal mass/possible nephrectomy with [facility] Urologist Dr. Traci Vences - at this time patient wants to delay surgery ~ 1-2 weeks so she can recover from this infection prior to proceeding with surgery - Follows with Dr. Vences's office ([phone]) - Patient will call [facility] to discuss after discharge. Hx Provoked PE - in setting of anticoagulation after surgery/while having malignancy - continued apixaban 5 mg bid Anxiety - continued citalopram Code Status: Full Code Dispo: Home (2) Breast implant status: (3) Renal cell carcinoma: (4) Anxiety: Total Time Total Time Spent Total Time Spent (In Minutes): see attending attestation Discharge Plan Discharge Items Patient Disposition: Home - Self-Care Reason For Visit: BREAST CELLULITIS Discharge Diagnosis: R Breast Cellulitis Activity: Per Instructions section Non-emergency contact: Primary Care Provider Call non-emergency contact if: you have any medication questions, your symptoms worsen and you have a fever Follow-up/Referrals: Radha Mukherjee DO [Primary Care Provider] - Diet: Regular Addtl Attending Provider Instructions: Ms. Yung, It was our pleasure to care for you at [facility] from 04/23 - 04/27/20 for cellulitis of your R breast. -While in the hospital you were treated with IV antibiotics for your R breast cellulitis and transitioned to oral antibiotics. -We noted significant improvement in the redness of your R breast skin and improvements in the swelling. -You are being discharged today with the following instructions. Please follow the below instructions: -Please pickling operator and take the antibiotic you are being prescribed: Doxycycline 100mg by mouth twice a day for 13 more days, you were given your first 2 doses for day 1 while in the hospital. -Please schedule for follow up with your PCP Dr. Mukherjee in the next week. When requesting an appointment, see if Dr. Mukherjee is precepting a DO Resident as they may also be able to perform Lymphatic Drainage techniques on your R breast and Axilla to help reduce the swelling. -Please call [facility] in regards to your upcoming surgery to determine if they would still like to proceed with or it or if should be rescheduled. -If your symptoms return or worsen, please call your PCP or return to the ED for reevaluation. Pending Studies at Discharge: No Stand-Alone Forms: My [facility], Smoking Cessation Medications and DC Order Prescriptions: New doxycycline hyclate 100 mg Capsule 100 mg PO BID 13 Days Qty: 26 RF: 0 Continued alprazolam 0.5 mg tablet 0.25 mg PO BID PRN (Reason: anxiety) Qty: 10 RF: 0 clindamycin phosphate 1 % solution 1 appln topical DAILY Qty: 1 RF: 0 famotidine [Pepcid] 20 mg tablet 20 mg PO DAILY PRN (Reason: Gi Upset) RF: 0 pantoprazole 40 mg tablet,delayed release (DR/EC) 40 mg PO QAM RF: 0 acetaminophen [Tylenol Extra Strength] 500 mg Tablet 500 mg PO Q6H PRN (Reason: Fever Or Pain) RF: 0 Eliquis 5 mg tablet 5 mg PO BID RF: 0 cholecalciferol (vitamin D3) 50 mcg (2,000 unit) Tablet 50 mcg PO BID RF: 0 citalopram 20 mg tablet 20 mg PO QPM RF: 0 biotin 5 mg Capsule 0 mg PO DAILY RF: 0 Krill Oil ([place] 3 and 6) 1000-130(40-80) mg Capsule 1 cap PO DAILY RF: 0 Emergen-C 1,000 mg Powder Effervescent In Packet 1 ea PO DAILY RF: 0 albuterol sulfate 90 mcg/actuation Hfa Aerosol Inhaler 2 puff INHALATION Q6H PRN (Reason: Wheezing) RF: 0 Discharge Orders: Discharge Order (Routine); Ordered 04/27/20 Ordered By: Mik Lewis Admission Data Admit Date/Time: 04/23/20 21:48 Attending Provider: Yuridia Ferreira Admit Provider: Katie Pastor Primary Care Provider: Radha Mukherjee Other Providers: Katie Pastor ; Kameron Dean ; Abram العراقي ; Demond Pastor I. ; Hiro Napoles II ; Carmen Buenrostro ; Sebastian Manning ; Jennifer Bosch Other Interventions: Discharge Summary Assessment (RN) Last Done: 04/27/20 11:40 Supervising Physician Co-Signing Physician Notes Resident Physician Supervision Note: I independently interviewed and examined the patient and verified the espana history and physical, reviewed labs and image studies, discussed the case with the resident Dr. Lewis and agree with the findings and care plan. Resident Activity Tracking Resident Involvement: Resident Care Provided Care Provided: Adult [facility] Medicine
[2020-04-28] MEDS ORDERED: VANCOMYCIN TROUGH ONE (05:30)
== END 2020-04-27 13:30 | disposition home or self-care (01) | DRG 600 ==
LOC: ED 16:51 → SUATTDRO 21:48 → 2N 21:48